=== PATIENT | female | born 1945 | race Caucasian/White ===

== ENCOUNTER → 2018-02-22 15:05 | Outpatient (CLI) | payer OTHER, SELFPAY ==
[2018-02-22 18:20] LABS: Anion Gap 8 (5-15); BUN 22 mg/dL (7-18); BUN/Creat Ratio 24.7 RATIO (10-20); Calcium,Total 8.6 mg/dL (8.5-10.1); Chloride 106 mmol/L (98-107); Cholesterol 155 mg/dL (200); Creatinine, Serum 0.89 mg/dL (0.55-1.02); EST Glomerular Filtration Rate 67 mL/min (>60); Est Glom Filt Rate - Afr Amer 81 mL/min (>60); Glucose 92 mg/dL (74-106); High Density Lipoprotein 40 mg/dL; Potassium 3.8 mmol/L (3.5-5.1); Sodium Level 143 mmol/L (136-145); Triglycerides 214 mg/dL; Very Low Density Lipoprotein 43 mg/dL (5-40)
== END ==
PROVIDERS: Visit Provider Family Medicine
DX: I10 Essential (primary) hypertension (principal)
CPT/HCPCS: 36415; 80048; 80061

== ENCOUNTER → 2018-05-11 09:57 | Outpatient (CLI) | payer MEDICARE, SELFPAY ==
[2018-05-11 12:34] LABS: Anion Gap 11 (5-15); BUN 16 mg/dL (7-18); BUN/Creat Ratio 17.9 RATIO (10-20); Calcium,Total 8.7 mg/dL (8.5-10.1); Chloride 101 mmol/L (98-107); Creatinine, Serum 0.89 mg/dL (0.55-1.02); EST Glomerular Filtration Rate 66 mL/min (>60); Est Glom Filt Rate - Afr Amer 80 mL/min (>60); Glucose 94 mg/dL (74-106); Magnesium 2.3 mg/dL (1.6-2.6); Potassium 4.2 mmol/L (3.5-5.1); Sodium Level 141 mmol/L (136-145)
== END ==
PROVIDERS: Family Provider Family Medicine; PCP Family Medicine; Visit Provider Family Medicine
DX: A04.72 Enterocolitis due to Clostridium difficile, not specified as recurrent (principal)
CPT/HCPCS: 36415; 80048; 83735

== ENCOUNTER → 2018-06-07 08:13 | Outpatient (CLI) | payer MEDICARE, SELFPAY ==
--- NOTE | 2018-06-07 08:17 | US_ITS ---
STUDY: ABDOMINAL ULTRASOUND REASON FOR EXAM: Female, 73 years old. Ascites evaluation. Recent hospitalization for Escherichia coli, abdominal appearing during hospitalization. TECHNIQUE: Transabdominal ultrasound was performed with real-time and static mcwilliams scale imaging. TECHNICAL QUALITY: Adequate. COMPARISON: None. FINDINGS: Liver: The liver measures 16.3 cm. There is normal echogenicity of the liver. The bile ducts are within normal limits. There is hepatic color flow. The direction of portal flow is hepatopetal. There is no demonstrated mass lesion. Portal vein measurement: Gallbladder: Normal distended gallbladder. The gallbladder wall measures 2.2 mm. There is a negative sonographic Rojas's sign. There is no pericholecystic fluid. There are gallbladder polyp of 2.5 mm. Common Bile Duct (C.B.D.): The common bile duct measures 3.5 mm. Pancreas: Normal size of the head, body and obscured tail of the pancreas. There is normal echogenicity of the pancreas. There is no demonstrated pancreatic mass or cyst. Spleen: There is splenomegaly. The spleen measures 12.7 x 4.5 x 4.4 cm. There are splenic granulomata. Right Kidney: Normal size of the right kidney. The right kidney measures 10 x 5 x 5 cm. Normal renal cortex. The right cortex measures 1. cm. There is no demonstrated renal mass or cyst. There is no right hydronephrosis. Left Kidney: Normal size of the left kidney. The left kidney measures 9.5 x 5.5 x 5 cm. Normal renal cortex. The left cortex measures 2.3 cm. There is echogenic mass without shadowing measuring 0.9 x 1 x 0.9 cm. There is no left hydronephrosis. Aorta: Normal diameter of the abdominal aorta and proximal common iliac arteries. I.V.C.: The IVC is patent. There is no ascites. US/Abdomen Complete IMPRESSION: Small gallbladder polyp in noninflamed gallbladder. No evidence of ascites or cirrhosis. Mild splenomegaly and splenic granulomata. Left renal angiomyolipoma. Electronically Signed: Paulette Fatima MD at 6:54 EST , Service support ,
== END ==
PROVIDERS: Family Provider Family Medicine; PCP Family Medicine
DX: K82.4 Cholesterolosis of gallbladder (principal); D17.71 Benign lipomatous neoplasm of kidney; D73.89 Other diseases of spleen; R18.8 Other ascites
CPT/HCPCS: 76700

== ENCOUNTER → 2018-12-14 08:27 | Outpatient (CLI) | payer MEDICARE, SELFPAY ==
[2018-12-14 10:19] LABS: Absolute Lymphocyte Count 1.31 X10^3/uL (0.83-4.51); Absolute Neutrophil Count 4.1 X10^3/uL (2.0-7.7); Basophil# 0.01 X10^3/uL; Basophil% 0.2 % (0-1); Eosinophil# 0.08 X10^3/uL; Eosinophils% 1.3 % (0-5); Hematocrit 36.5 % (37-47); Hemoglobin 11.9 g/dL (12.0-15.0); Lymphocyte # 1.31 X10^3/ul (4.0); Lymphocyte % 21.9 % (19-41); Mean Corp Hgb Conc 32.6 g/dL (32-36); Mean Corpuscular Hgb 31.8 pg (27.0-32.0); Mean Corpuscular Volume 97.6 fL (81-99); Mean Platelet Vol. 11.7 fl (6.2-12.0); Monocyte% 6.7 % (0-10); NRBC Flagged by Analyzer 0 % (0-5); Neutrophil # 4.14 X10^3/uL (2.7-7.7); Neutrophil % 69.4 % (47-70); Platelet Count 159 K/mm3 (150-450); RBC Distribution Width CV 12.7 % (11.6-14.6); RBC Distribution Width SD 45.3 fl (35.1-43.9); Red Blood Count 3.74 M/mm3 (4.2-5.4)
[2018-12-14 10:33] LABS: Vitamin D,25 Hydroxy 35.6 ng/mL (29.95-100.01)
[2018-12-14 10:47] LABS: ALB/GLOB Ratio 0.9 RATIO (0.9-2.4); AST(SGOT) 21 U/L (15-37); Alanine Aminotransfer ALT/SGPT 21 U/L (13-56); Albumin, Serum 3.2 g/dL (3.2-5.0); Alkaline Phosphatase 69 U/L (45-117); Anion Gap 6 (5-15); BUN 23 mg/dL (7-18); BUN/Creat Ratio 23.9 RATIO (10-20); Calcium,Total 8.4 mg/dL (8.5-10.1); Chloride 105 mmol/L (98-107); Cholesterol 162 mg/dL (200); Creatinine, Serum 0.96 mg/dL (0.55-1.02); EST Glomerular Filtration Rate 61 mL/min (>60); Est Glom Filt Rate - Afr Amer 73 mL/min (>60); Globulin 3.6 g/dL (2.2-4.2); Glucose 94 mg/dL (74-106); High Density Lipoprotein 50 mg/dL; Potassium 3.9 mmol/L (3.5-5.1); Protein, Total 6.8 g/dL (6.4-8.2); Sodium Level 140 mmol/L (136-145); Triglycerides 144 mg/dL; Uric Acid 6.2 mg/dL (2.6-6.0); Very Low Density Lipoprotein 29 mg/dL (5-40)
== END ==
PROVIDERS: Family Provider Family Medicine; PCP Family Medicine; Referring Provider Family Medicine; Visit Provider Family Medicine
DX: M10.9 Gout, unspecified (principal); C50.919 Malignant neoplasm of unspecified site of unspecified female breast; E55.9 Vitamin D deficiency, unspecified; I10 Essential (primary) hypertension
CPT/HCPCS: 36415; 80053; 80061; 82306; 84550; 85025

== ENCOUNTER → 2019-02-09 13:29 | Outpatient (CLI) | payer MEDICARE, SELFPAY ==
--- NOTE | 2019-02-09 13:33 | RAD_ITS ---
STUDY: X-RAY - PELVIS AND RIGHT HIP REASON FOR EXAM: Female, 73 years old. Right hip pain for several months. TECHNIQUE: 3 views of the pelvis and hip. COMPARISON: None. FINDINGS: There is a non-specific bowel gas pattern. Multiple calcified pelvic phleboliths. Enthesophytes of the iliac crests. Mild degenerative changes of the sacroiliac joints. Normal bilateral superior and inferior pubic rami. Normal pubic symphysis. Normal bilateral ischial tuberosities. Normal visualized femoral head. Normal acetabulum. There is mild articular joint space narrowing of the hip. RAD/HIP, UNI W/ Pelvis 2-3 Views IMPRESSION: Negative for fracture, dislocation, osteolytic or blastic bone lesion of the pelvis or hips. Mild degenerative narrowing of the right hip similar to the left hip. Mild degenerative changes of the sacroiliac joints. Enthesophytes of the iliac crests. Electronically Signed: Eulalia Samaniego MD at 22:18 EDT , Service support ,
== END ==
PROVIDERS: Family Provider Family Medicine; PCP Family Medicine; Referring Provider Family Medicine; Visit Provider Family Medicine
DX: M25.559 Pain in unspecified hip (principal)
CPT/HCPCS: 73502

== ENCOUNTER 2019-03-17 09:00 | Outpatient (RCR) | payer MEDICARE, SELFPAY ==
--- NOTE | 2019-03-10 11:48 | HP.PTEVAL_ITS ---
Patient's Visit Information JASEN ANDERSEN is a 73 year old F referred to Physical Therapy by Robinson Starkey PA-C with a diagnosis of Right Hip Bursitis. Date of Evaluation: 03/10/19 Physical Therapist: Fina Polanco DPT - Visit Plan Frequency: 2x /Week Duration: 3 Weeks Plan: Focus on LE and core strength/stabilization- progress to HEP for H&W. HEP IE: postural education, iso abs, bridge, clams - Subjective Findings: Right hip pain started 2-3 months ago- [place] like a really bad hamstring pull and N/T. Had x-rays and was diagnosed with bursitis. She had an injection in the hip (02/02/19). Her hip is 80% better since the injection. The pain is right where the leg bends. Normal ex reg- cardio, strength and ted 5x a week at [facility]. Agg: She reports still having N/T when she sits to long or when she gets out of bed in the AM, walking to long. Worst: 2/10 Eases: ice, injection. Best: 0/10. Has had various injections in her back- last one was 3-4 years ago. Sleep: when she turns on her right side. Once she is moving it just takes a few minutes- her couch is the worst spot to sit in. PMHx: HTN, breast cancer, bilateral TKR 2009, Right knee bothers her a little bit, 7.5 years ago- left shoulder repair, Ecoli Meds: Gabapentin, hyprocholor, Promexel, Meloxicam, Tomoxipham. - Objective Posture: FH, RS- can correct when given verbal and tacile cues but does not m aintain. Gait: no significant deviations noted. HR/TR: able. SLS: Left 5 seconds Right: 3 seconds. ROM: WFL in all planes lumbar and LE. Sensation: WNL. Reflex: 2+ patellar. Strength: Ankle DF/PF: 5/5 Knee:5/5, Hip: 4/5 throughout Core: fair minus. Flex: HS: moderate, Gastroc: moderate, Piriformis: moderate. Special Test: slump: positive. Dural Signs: positive on the right, Alexsander: negative. - Goals Goal 1:: Patient will be I with HEP and progression Goal Time Frame: 4-6 Weeks Goal 2:: Patinet will maintain proper posture t/o tx session to demo increased core s/s Goal Time Frame: 4-6 Weeks Goal 3:: Patient will report 0/10 hip pain for 1 week Goal Time Frame: 4-6 Weeks Goal 4:: Patient will demo 5/5 strength in LE Goal Time Frame: 4-6 Weeks - Rehabilitation Potential Physical Therapy Diagnosis: Patient present with hypomobility- she has decreased strength and muscular endurance leading to increased pain with ADL's. Rehabilitation Potential: Fair - Anticipated Interventions Patient/Client Instruction: Educate patient on: Benefits of Fitness Program Therapeutic Exercise to Include: Strength training, Balance training, Body mechanics, Postural training, Flexibilty training, Dynamic Lumbar Stabilization, Scapular Strength/Stabilization For the Purpose of:: To improve muscle performance and motor function TENS: Yes Cryotherapy (ice pack, ice massage): Yes Thermo therapy (hot pack): Yes Ultrasound (thermal/non thermal): Yes Thank you for the opportunity to evaluate your patient. For Medicare and Medicare HMO plans, please review the plan of care and approve it. It will need to be FAXED BACK to us at [phone] for Medicare purposes. For Medicare only, by signing this I certify the plan of care. Please let me know if there are questions or concerns regarding this plan of care. Physician Signature: Date:
--- NOTE | 2019-04-18 11:09 | HP.PT.NRP ---
HP - Discharge Summary (1) - Patient Information JASEN ANDERSEN was seen in my office for initial evaluation on 03/10/19. The following Plan of Care was established for this patient: Initial Frequency: 2x /Week Initial Duration: 3 Weeks - Anticipated Interventions Patient/Client Instruction: Educate patient on: Benefits of Fitness Program Therapeutic Exercise to Include: Strength training, Balance training, Body mechanics, Postural training, Flexibilty training, Dynamic Lumbar Stabilization, Scapular Strength/Stabilization For the Purpose of:: To improve muscle performance and motor function TENS: Yes Cryotherapy (ice pack, ice massage): Yes Thermo therapy (hot pack): Yes Ultrasound (thermal/non thermal): Yes This patient was last seen in our office . Pertinent comments regarding their Physical therapy will appear below: Patient has not attended therapy is over 4 weeks- appropriate for d/c and return to MD for further evaluation as needed. At this point I will be discontinuing this patient from physical therapy. I would be happy to see this patient again in the future if found appropriate by the physician. Thank you! Fina Polanco DPT
== END 2019-03-17 19:00 | disposition home or self-care (01) ==
LOC: PT 09:00
PROVIDERS: Family Provider Family Medicine; PCP Family Medicine; Referring Provider Physician Assistant; Visit Provider Physician Assistant
DX: M16.11 Unilateral primary osteoarthritis, right hip (principal); M70.61 Trochanteric bursitis, right hip
CPT/HCPCS: 97110; 97161

== ENCOUNTER → 2019-12-26 09:42 | Outpatient (CLI) | payer MEDICARE, SELFPAY ==
[2019-12-26 12:17] LABS: Absolute Lymphocyte Count 1.28 X10^3/uL (0.83-4.51); Absolute Neutrophil Count 4.7 X10^3/uL (2.0-7.7); Basophil# 0.02 X10^3/uL; Basophil% 0.3 % (0-1); Eosinophil# 0.11 X10^3/uL; Eosinophils% 1.7 % (0-5); Hematocrit 35.3 % (37-47); Hemoglobin 11.2 g/dL (12.0-15.0); Lymphocyte # 1.28 X10^3/ul (4.0); Lymphocyte % 19.5 % (19-41); Mean Corp Hgb Conc 31.7 g/dL (32-36); Mean Corpuscular Hgb 31.5 pg (27.0-32.0); Mean Corpuscular Volume 99.2 fL (81-99); Monocyte# 0.49 X10^3/uL; Monocyte% 7.5 % (0-10); NRBC Flagged by Analyzer 0 % (0-5); Neutrophil # 4.65 X10^3/uL (2.7-7.7); Neutrophil % 70.7 % (47-70); Platelet Count 175 K/mm3 (150-450); RBC Distribution Width CV 12.4 % (11.6-14.6); RBC Distribution Width SD 45.1 fl (35.1-43.9); Red Blood Count 3.56 M/mm3 (4.2-5.4); White Blood Count 6.6 K/mm3 (4.4-11.0)
[2019-12-26 12:45] LABS: Vitamin B12 659 pg/mL (211-911)
[2019-12-26 12:53] LABS: Hemoglobin A1c 5.4 % (3.8-5.6)
[2019-12-26 13:22] LABS: ALB/GLOB Ratio 0.9 RATIO (0.9-2.4); AST(SGOT) 19 U/L (15-37); Alanine Aminotransfer ALT/SGPT 19 U/L (13-56); Albumin, Serum 3.2 g/dL (3.2-5.0); Alkaline Phosphatase 71 U/L (45-117); Anion Gap 6 (5-15); BUN 22 mg/dL (7-18); BUN/Creat Ratio 24.1 RATIO (10-20); Calcium,Total 8.8 mg/dL (8.5-10.1); Chloride 106 mmol/L (98-107); Creatinine, Serum 0.91 mg/dL (0.55-1.02); EST Glomerular Filtration Rate 64 mL/min (>60); Est Glom Filt Rate - Afr Amer 78 mL/min (>60); Free T3 3.1 pg/mL (2.18-3.98); Globulin 3.5 g/dL (2.2-4.2); Glucose 93 mg/dL (74-106); Potassium 4.1 mmol/L (3.5-5.1); Protein, Total 6.7 g/dL (6.4-8.2); Sodium Level 141 mmol/L (136-145); T4 Free Direct 0.91 ng/dL (0.76-1.46); Thyroid Stim Hormone (TSH) 3.13 uIU/mL (0.358-3.74); Uric Acid 6.3 mg/dL (2.6-6.0)
[2019-12-27 14:08] LABS: Thyroid Peroxidase AB < 9 IU/mL (0-34)
[2019-12-27 16:59] LABS: Thyroglobulin Antibody < 1.0 IU/mL (0.0-0.9)
== END ==
PROVIDERS: PCP Family Medicine; Visit Provider Family Medicine
DX: E03.9 Hypothyroidism, unspecified (principal); M10.9 Gout, unspecified; I10 Essential (primary) hypertension; R53.83 Other fatigue; Z79.899 Other long term (current) drug therapy
CPT/HCPCS: 36415; 80053; 82607; 83036; 84439; 84443; 84481; 84550; 85025; 86376; 86800

== ENCOUNTER → 2020-02-02 15:20 | Outpatient (CLI) | payer MEDICARE, SELFPAY ==
--- NOTE | 2020-02-02 10:50 | EGD_PTH ---
PATIENT: JASEN ANDERSEN LOC: [facility] U#:[id number] AGE/SX: 79/F ROOM: RE02/02/[address]: Dr. Leon Shipman MD : 1945 BED: DIS: SPEC #: [id number] RECD: 02/02/20 15:10 STATUS: JUDITH SCARLET #: [id number] LUC: 02/02/20 10:[address]: Leon Shipman DEPT: SURGICAL PATHOLOGY RECD BY: Kevin Marcelo ENTERED: 02/05/20 07:10 SP TYPE: EGD BIOPSY OT DR: Dr. Sudha Adler MD [facility] Tissues: Duodenum, NOS Procedures: Surgery Specimen Level IV HEADER OPERATION: EGD with biopsies PRE-OP DIAGNOSIS: Iron deficiency anemia; rule out celiac TISSUE SUBMITTED: Duodenal biopsies MICROSCOPIC DIAGNOSIS Duodenum, biopsy: No pathologic change. See comment. AM:jaguar 02/06/20 COMMENT There is no evidence of celiac sprue. Clinical correlation is suggested. MICROSCOPIC DESCRIPTION Slides are reviewed. GROSS DESCRIPTION Received in fixative is one container labeled with the patient's name and designated duodenal biopsy. The specimen consists of two irregular fragments of light swenson soft tissue that in aggregate measure 0.6 x 0.6 x 0.1 cm. The specimen is totally submitted in one cassette. / AM:jaguar 02/05/20 TC:5 CPT: 78850
== END ==
PROVIDERS: PCP Family Medicine; Referring Provider Internal Medicine Gastroenterology; Visit Provider Internal Medicine Gastroenterology
DX: D50.9 Iron deficiency anemia, unspecified (principal)
CPT/HCPCS: 88305

== ENCOUNTER → 2020-02-09 10:25 | Outpatient (CLI) | payer MEDICARE, SELFPAY ==
[2020-02-09 12:47] LABS: Absolute Lymphocyte Count 1.49 X10^3/uL (0.83-4.51); Absolute Neutrophil Count 5.4 X10^3/uL (2.0-7.7); Basophil# 0.02 X10^3/uL; Basophil% 0.3 % (0-1); Eosinophil# 0.07 X10^3/uL; Eosinophils% 0.9 % (0-5); Hematocrit 38.9 % (37-47); Hemoglobin 12.4 g/dL (12.0-15.0); Lymphocyte # 1.49 X10^3/ul (4.0); Lymphocyte % 20.1 % (19-41); Mean Corp Hgb Conc 31.9 g/dL (32-36); Mean Corpuscular Volume 100.5 fL (81-99); Mean Platelet Vol. 11.7 fl (6.2-12.0); Monocyte# 0.48 X10^3/uL; Monocyte% 6.5 % (0-10); NRBC Flagged by Analyzer 0 % (0-5); Neutrophil # 5.35 X10^3/uL (2.7-7.7); Neutrophil % 71.9 % (47-70); Platelet Count 180 K/mm3 (150-450); RBC Distribution Width CV 12.9 % (11.6-14.6); RBC Distribution Width SD 47.1 fl (35.1-43.9); Red Blood Count 3.87 M/mm3 (4.2-5.4); White Blood Count 7.4 K/mm3 (4.4-11.0)
[2020-02-09 13:00] LABS: Iron 87 ug/dL (50-170)
== END ==
PROVIDERS: PCP Family Medicine; Referring Provider Family Medicine; Visit Provider Internal Medicine Gastroenterology
DX: E61.1 Iron deficiency (principal)
CPT/HCPCS: 36415; 83540; 85025

== ENCOUNTER → 2020-06-25 14:28 | Outpatient (CLI) | payer MEDICARE, SELFPAY ==
[2020-06-25 17:27] LABS: Absolute Lymphocyte Count 1.68 X10^3/uL (0.83-4.51); Absolute Neutrophil Count 6.7 X10^3/uL (2.0-7.7); Basophil# 0.03 X10^3/uL; Basophil% 0.3 % (0-1); Eosinophil# 0.03 X10^3/uL; Eosinophils% 0.3 % (0-5); Hemoglobin 13.2 g/dL (12.0-15.0); Lymphocyte # 1.68 X10^3/ul (4.0); Lymphocyte % 18.8 % (19-41); Mean Corpuscular Hgb 31.9 pg (27.0-32.0); Mean Corpuscular Volume 96.6 fL (81-99); Monocyte% 5.6 % (0-10); NRBC Flagged by Analyzer 0 % (0-5); Neutrophil # 6.66 X10^3/uL (2.7-7.7); Neutrophil % 74.6 % (47-70); Platelet Count 196 K/mm3 (150-450); RBC Distribution Width CV 12.8 % (11.6-14.6); RBC Distribution Width SD 45.2 fl (35.1-43.9); Red Blood Count 4.14 M/mm3 (4.2-5.4); White Blood Count 8.9 K/mm3 (4.4-11.0)
[2020-06-25 17:54] LABS: Vitamin B12 1408 pg/mL (211-911)
[2020-06-25 18:11] LABS: ALB/GLOB Ratio 0.9 RATIO (0.9-2.4); AST(SGOT) 20 U/L (15-37); Alanine Aminotransfer ALT/SGPT 24 U/L (13-56); Albumin, Serum 3.6 g/dL (3.2-5.0); Alkaline Phosphatase 76 U/L (45-117); Anion Gap 9 (5-15); BUN 21 mg/dL (7-18); BUN/Creat Ratio 22.2 RATIO (10-20); Calcium,Total 9.1 mg/dL (8.5-10.1); Chloride 103 mmol/L (98-107); Creatinine, Serum 0.95 mg/dL (0.55-1.02); EST Glomerular Filtration Rate 62 mL/min (>60); Est Glom Filt Rate - Afr Amer 75 mL/min (>60); Ferritin 114 ng/mL (8-252); Globulin 3.9 g/dL (2.2-4.2); Glucose 93 mg/dL (74-106); Iron 45 ug/dL (50-170); Iron Binding Capacity,Total 337 ug/dL (250-450); Potassium 3.5 mmol/L (3.5-5.1); Protein, Total 7.5 g/dL (6.4-8.2); Sodium Level 140 mmol/L (136-145); Uric Acid 5.5 mg/dL (2.6-6.0)
== END ==
PROVIDERS: PCP Family Medicine; Visit Provider Family Medicine
DX: R42 Dizziness and giddiness (principal); M10.9 Gout, unspecified; I10 Essential (primary) hypertension; D64.9 Anemia, unspecified
CPT/HCPCS: 36415; 80053; 82607; 82728; 83540; 83550; 84550; 85025

== ENCOUNTER → 2020-06-26 11:06 | Outpatient (CLI) | payer MEDICARE, SELFPAY | PROVIDERS: PCP Family Medicine; Visit Provider Family Medicine | DX: Z20.828 Contact with and (suspected) exposure to other viral communicable diseases (principal); R42 Dizziness and giddiness | CPT/HCPCS: 87635; U0005; U0003 ==

== ENCOUNTER → 2020-07-02 13:38 | Outpatient (CLI) | payer MEDICARE, SELFPAY ==
--- NOTE | 2020-07-02 13:42 | CT_ITS ---
STUDY: CTA OF THE BRAIN REASON FOR EXAM: Female, 75 years old. VERTIGO/CONCERN FOR STROKE -- HAD CAROTID DOPPLER AFTER CTA RADIATION DOSAGE (If Supplied By Facility): CTDIvol = ( 17.32 ) mGy, DLP = ( 363.92 ) mGycm TECHNIQUE: CT angiography was performed with a multi-detector CT scanner. Data acquisition was obtained from the skull base through the vertex following intravenous administration of IV 100mL Isovue-370. MIP images were reconstructed from the axial data set. Post-processing of the angiographic images was performed, with multiplanar reformation and 3D reconstruction. Individualized dose optimization techniques were used for this CT. COMPARISON: None. FINDINGS: Normal bilateral petrous carotid arteries. There is calcified plaque formation of the right cavernous carotid artery, without a cross-sectional luminal stenosis. There is calcified plaque formation of the left cavernous carotid artery, without a cross-sectional luminal stenosis. Normal right A1 segments of the anterior cerebral artery. Normal left A1 segments of the anterior cerebral artery. Normal intact anterior communicating artery (ACOM). Normal bilateral A2 segments of the anterior cerebral arteries. Normal right M1 and M2 segments of the middle cerebral arteries, with a normal M1 bifurcation. Normal left M1 and M2 segments of the middle cerebral arteries, with a normal M1 bifurcation. Normal right posterior communicating artery (PCOM). Normal left posterior communicating artery (PCOM). Normal bilateral vertebral arteries. Normal basilar artery with a normal basilar bifurcation. The visualized bilateral superior cerebellar (SCA) arteries are normal. Normal bilateral P1, P2 and visualized P3 segments of the posterior cerebral arteries. There is no demonstrated aneurysm of the [place]. There is no demonstrated abnormality of the visualized brain. CT/CTA Head W/WO Contrast IMPRESSION: Normal [place] without a demonstrated aneurysm or hemodynamically significant stenosis. Electronically Signed: Monico Aquino MD at 14:40 EST , Service support ,
--- NOTE | 2020-07-02 14:03 | CDU_ITS ---
Reason For Study: vertigo, concern for stroke Rt. Velocities/BP Lt. Velocities/BP Prox CCA 91.7/26.5 cm/sec. Prox CCA 108.6/25.2 cm/sec. Mid CCA 85.2/23.9 cm/sec. Mid CCA 81.2/21.3 cm/sec. Dist CCA 82.6/21.3 cm/sec. Dist CCA 76.0/21.3 cm/sec. Prox ICA 57.8/20.0 cm/sec. Prox ICA 77.3/20.0 cm/sec. Mid ICA 99.5/22.6 cm/sec. Mid ICA 83.9/27.8 cm/sec. Dist ICA 100.8/35.6 cm/sec. Dist ICA 111.2/42.1 cm/sec. Rt. ICA/CCA = 1.2. Lt. ICA/CCA = 1.4. Prox ECA 111.2/10.8 cm/sec. Prox ECA 94.3/10.8 cm/sec. Rt. Vert. 42.1/9.5 cm/sec. Lt. Vert. 48.6/14.7 cm/sec. Right Extracranial There is intimal thickening but no significant atherosclerotic plaque noted in the right common carotid artery. There is intimal thickening but no significant atherosclerotic plaque noted in the right internal carotid artery. There is heterogeneous, irregular atherosclerotic plaque noted in the right external carotid artery. Antegrade flow is noted in the right vertebral artery. Left Extracranial There is homogeneous, smooth atherosclerotic plaque noted in the left common carotid artery. There is intimal thickening but no significant atherosclerotic plaque noted in the left internal carotid artery. There is intimal thickening but no significant atherosclerotic plaque noted in the left external carotid artery. Antegrade flow is noted in the left vertebral artery. Procedure Carotid Duplex 90950. This is a Carotid Duplex examination using B-mode, color flow and specral Doppler. The exam was diagnostic. Exam performed in department. Interpretation Summary No significant atherosclerotic plaque or stenosis noted in the internal carotid arteries bilaterally. Flow within the vertebral arteries is antegrade bilaterally. Ordering Physician: Sudha Adler Performed By: Emigdio Delgado RVT
== END ==
PROVIDERS: PCP Family Medicine; Referring Provider Family Medicine; Visit Provider Family Medicine
DX: R42 Dizziness and giddiness (principal)
CPT/HCPCS: 70496; 93880; Q9967

== ENCOUNTER 2020-08-19 00:50 | Emergency (ER) | payer MEDICARE, SELFPAY ==
[2020-08-19 00:51] VITALS: BP 192/96; PULSE 109; RESP 19; TEMP 36.6; O2SAT 95; BMI 35.4
[2020-08-19 00:58] VITALS: BMI 35.4
--- NOTE | 2020-08-19 01:31 | CT_ITS ---
STUDY: CT BRAIN WITHOUT CONTRAST REASON FOR EXAM: Female, 75 years old. Headache RADIATION DOSAGE (If Supplied By Facility): CTDIvol = ( 44.99 ) mGy, DLP = ( 745.49 ) mGycm TECHNIQUE: Transaxial CT imaging of the brain was performed without administration of intravenous contrast material. Individualized dose optimization techniques were used for this CT. COMPARISON: 07/02/2020 FINDINGS: Normal soft tissue structures. Normal calvarium. Normal size ventricles and extra-axial spaces for the patient''s age. Normal white matter tracts of the cerebral hemispheres. Normal basal ganglia and thalami. Normal brainstem. Normal cerebellum. There is no intracranial hemorrhage. There are no findings of an acute ischemic infarction. Normal visualized paranasal sinuses. CT/Brain/Head without Contrast IMPRESSION: Normal unenhanced CT scan of the brain. Electronically Signed: Sunny Syed DO at 2:22 EDT Tel , Service support ,
--- NOTE | 2020-08-19 01:31 | RAD_ITS ---
STUDY: X-RAY CHEST REASON FOR EXAM: Female, 75 years old. Paresthesias TECHNIQUE: Single AP portable view of the chest. COMPARISON: 05/28/2014 FINDINGS: The lungs are clear and expanded. There is no demonstrated pleural abnormality. Normal size heart. Normal mediastinum and esha. Normal visualized pulmonary arteries. Normal visualized aortic arch and descending thoracic aorta. Normal visualized thoracic spine. Normal visualized ribs, clavicles, and shoulders. There is no demonstrated abnormality of the visualized soft tissue structures of the upper abdomen. RAD/Chest 1 View (Portable) IMPRESSION: Normal x-ray examination of the chest. Electronically Signed: Sunny Syed DO at 2:24 EDT Tel , Service support ,
--- NOTE | 2020-08-19 01:31 | EKG12_ITS ---
Test Reason : NEURO SYMPTOMS Blood Pressure : / mmHG Vent. Rate : 088 BPM Atrial Rate : 088 BPM P-R Int : 260 ms QRS Dur : 088 ms QT Int : 390 ms P-R-T Axes : 045 -28 037 degrees QTc Int : 471 ms Sinus rhythm with 1st degree A-V block Nonspecific ST abnormality Abnormal ECG Confirmed by RAFFAELE DONAHUE, BYRON ([id number]), map editor KEERTHI GARCIA ([id number]) on 08/20/2020 8:43:04 AM Referred By: NADIA Confirmed By:MACKENZIE CASTORENA MD
[2020-08-19 01:41] LABS: Absolute Lymphocyte Count 2.19 X10^3/uL (0.83-4.51); Absolute Neutrophil Count 4.8 X10^3/uL (2.0-7.7); Basophil# 0.02 X10^3/uL; Basophil% 0.3 % (0-1); Eosinophil# 0.08 X10^3/uL; Eosinophils% 1.1 % (0-5); Hematocrit 39.7 % (37-47); Hemoglobin 13.3 g/dL (12.0-15.0); Lymphocyte # 2.19 X10^3/ul (0.83-4.51); Lymphocyte % 28.9 % (19-41); Mean Corp Hgb Conc 33.5 g/dL (32-36); Mean Corpuscular Hgb 33.1 pg (27.0-32.0); Mean Corpuscular Volume 98.8 fL (81-99); Mean Platelet Vol. 11.8 fl (6.2-12.0); Monocyte# 0.51 X10^3/uL; Monocyte% 6.7 % (0-10); NRBC Flagged by Analyzer 0 % (0-5); Neutrophil # 4.76 X10^3/uL (2.7-7.7); Neutrophil % 62.7 % (47-70); Platelet Count 176 K/mm3 (150-450); RBC Distribution Width CV 12.8 % (11.6-14.6); Red Blood Count 4.02 M/mm3 (4.2-5.4); White Blood Count 7.6 K/mm3 (4.4-11.0)
[2020-08-19 01:45] LABS: Partial Thromboplast Time 27.2 Seconds (24.1-36.2); Prothrombin Time (Protime)PT. 12.6 SECONDS (11.7-14.9)
[2020-08-19 01:46] LABS: Bedside Glucose 121 mg/dL (70-110)
[2020-08-19 01:56] VITALS: BP 166/90; PULSE 91; RESP 16; O2SAT 100
[2020-08-19 01:56] LABS: ALB/GLOB Ratio 0.9 RATIO (0.9-2.4); AST(SGOT) 20 U/L (15-37); Alanine Aminotransfer ALT/SGPT 24 U/L (13-56); Albumin, Serum 3.6 g/dL (3.2-5.0); Alkaline Phosphatase 65 U/L (45-117); Anion Gap 5 (5-15); BUN 23 mg/dL (7-18); BUN/Creat Ratio 22.1 RATIO (10-20); Calcium,Total 8.9 mg/dL (8.5-10.1); Chloride 102 mmol/L (98-107); Creatinine, Serum 1.04 mg/dL (0.55-1.02); EST Glomerular Filtration Rate 55 mL/min (>60); Est Glom Filt Rate - Afr Amer 67 mL/min (>60); Estimated Creatinine Clearance 39.85 ml/min; Glucose 133 mg/dL (74-106); Potassium 3.1 mmol/L (3.5-5.1); Protein, Total 7.6 g/dL (6.4-8.2); Sodium Level 137 mmol/L (136-145)
[2020-08-19 02:00] VITALS: BP 178/90; PULSE 98; RESP 19; O2SAT 99
--- NOTE | 2020-08-19 02:08 | ED.DCSUM_ITS ---
- ER Visit Summary Date of Service: 08/19/20 Chief Complaint: Left arm tingling, blurred vision, and headache History of Present Illness: The patient is a 75 F who presents with left arm tingling that began yesterday. Patient states that she has been having some intermittent tingling over her left arm. Patient also admits to some intermittent blurred vision. Patient denies any loss of vision. Patient also admits to a headache. Patient denies any weakness. Patient states she noticed her blood pressure was also elevated at home. Patient denies any chest pain or shortness of breath. Patient denies any nausea or vomiting. Patient denies any diaphoresis. Physical Examination: Vital signs are stable except for an elevated blood pressure of 192/96 and mild tachycardia of 109. Patient is afebrile. Patient is in no acute distress. Cranial nerves II through XII are intact. Strength is 5/5 bilaterally in the upper and lower extremities. There are no sensory deficits noted. Fcqp-vs-xgct and ytaoct-we-ahec is intact. There are no visual field deficits noted. Pupils are equal, round, and reactive to light bilaterally. Extraocular muscles are intact. Oral mucosa is pink and moist. Neck is supple. Trachea is midline. There is no JVD. Heart was regular rate and rhythm. Lungs are clear and equal bilaterally. There is good respiratory effort noted. Abdomen is soft. Bowel sounds are normal. There is no tenderness. Extremities are intact. There is no calf tenderness or edema. Test Results: EKG was obtained. On my interpretation, it showed a normal sinus rhythm with a rate of 88. NC interval was slightly prolonged at 260 ms. QRS interval, and QTc intervals were all normal. There is left axis deviation at - 28. There are no acute ST or T wave changes. CBC was within normal limits. Comprehensive metabolic profile showed a mild hypokalemia of 3.1. BUN was 23 and creatinine was 1.04. These were consistent with prior results. PT with INR and PTT were normal. Urinalysis does not show any evidence of urinary tract inf ection. Troponin was normal. Portable 1 view chest x-ray was obtained. On my interpretation, lung sorenson are clear. There is normal cardiac silhouette. Bony thorax is normal. There is no acute process noted. Radiologist also interpreted the x-ray and agrees. CT scan of the brain was obtained. There is no acute intracranial abnormality. This was interpreted by the radiologist and reviewed by myself. Emergency Department Course and Treatment: Patient was given a dose of oral potassium here. Patient's blood pressure improved to 166/90 without any medications. Her blood pressure then increased to 170/76. Patient was advised to increase her hydrochlorothiazide to 25 mg daily. Patient was advised to continue to monitor her blood pressure. Patient was instructed to follow-up with her primary care physician in 2 to 3 days for further evaluation. Patient understood and was agreeable with the plan. All questions were answered. Disposition: Discharge home Impression: 1. Hypokalemia 2. Hypertension 3. Paresthesias This note was generated with [employer] dictation software. It may contain incorrect words, spelling, and punctuation that were not noted in review of the chart prior to signing ED Disposition - Plan for ED Patient: Disposition: Home or Assisted Living Diagnosis: Hypokalemia, Hypertension, Paresthesias Instructions: ED Hypertension, Established, ED Hypokalemia, ED Paraesthesias Referrals: Sudha Adler MD [Primary Care Provider] - 3-5 Days Additional Instructions: Your blood pressure was elevated here in the emergency department. Increase your hydrochlorothiazide to 25 mg daily. Continue to monitor your blood pressures daily. Follow-up with your primary care physician in 3 to 5 days for further management of your blood pressure.
[2020-08-19 02:12] LABS: Bacteria 0 SEEN /hpf (None Seen); Color, Urine Yellow (Yellow); Glucose, Dipstick Normal (Normal); Ketone-Dipstick Negative (Negative); Leukocyte Esterase-Dipstick Negative /ul (Negative); Mucous, Urine 0 SEEN /hpf (<or=2+); Nitrite-Dipstick Negative (Negative); Occult Blood-Urine Negative /ul (Negative); Protein-Dipstick Negative (Negative); Squamous Epithelial Cells - UA 0 SEEN /hpf (5-10); Urine Bilirubin Dipstick Negative (Negative); Urine Clarity Clear (Clear); Urine Urobilinogen Normal (Normal); Urine pH 6.5 (5.0 - 8.0); White Blood Cells 0 SEEN /hpf (0-5)
[2020-08-19 02:19] LABS: Red Blood Cells-Urine 0-5 SEEN /hpf (0-5)
[2020-08-19 03:00] VITALS: BP 170/76; PULSE 99; RESP 18; O2SAT 99
[2020-08-19] MEDS: Potassium Chloride Oral Tablet 20 MEQ 40 MEQ PO (03:03)
[2020-08-19 03:28] VITALS: BP 167/74; PULSE 89; RESP 16; TEMP 37.1; O2SAT 98
== END 2020-08-19 03:41 | disposition home or self-care (01) ==
PROVIDERS: Emergency Provider Emergency Medicine; PCP Family Medicine
DX: E87.6 Hypokalemia (principal); I10 Essential (primary) hypertension; R20.2 Paresthesia of skin; Z79.899 Other long term (current) drug therapy
CPT/HCPCS: 70450; 71045; 80053; 81001; 82962; 84484; 85025; 85610; 85730; 93005; 99284

== ENCOUNTER → 2020-08-23 10:21 | Outpatient (CLI) | payer MEDICARE, SELFPAY ==
[2020-08-19 00:58] VITALS: BMI 35.4
[2020-08-23 12:47] LABS: Anion Gap 3 (5-15); BUN 16 mg/dL (7-18); BUN/Creat Ratio 17.2 RATIO (10-20); Calcium,Total 8.9 mg/dL (8.5-10.1); Chloride 103 mmol/L (98-107); Creatinine, Serum 0.93 mg/dL (0.55-1.02); EST Glomerular Filtration Rate 63 mL/min (>60); Est Glom Filt Rate - Afr Amer 76 mL/min (>60); Glucose 100 mg/dL (74-106); Potassium 3.6 mmol/L (3.5-5.1); Sodium Level 138 mmol/L (136-145)
== END ==
PROVIDERS: PCP Family Medicine; Visit Provider Family Medicine
DX: E87.6 Hypokalemia (principal)
CPT/HCPCS: 36415; 80048

== ENCOUNTER → 2021-01-23 14:10 | Outpatient (CLI) | payer MEDICARE, SELFPAY ==
[2021-01-23 17:56] LABS: ALB/GLOB Ratio 0.9 RATIO (0.9-2.4); AST(SGOT) 28 U/L (15-37); Alanine Aminotransfer ALT/SGPT 26 U/L (13-56); Albumin, Serum 3.7 g/dL (3.2-5.0); Alkaline Phosphatase 89 U/L (45-117); Anion Gap 5 (5-15); BUN 18 mg/dL (7-18); Calcium,Total 9.3 mg/dL (8.5-10.1); Chloride 101 mmol/L (98-107); EST Glomerular Filtration Rate 65 mL/min (>60); Est Glom Filt Rate - Afr Amer 79 mL/min (>60); Globulin 4.3 g/dL (2.2-4.2); Glucose 91 mg/dL (74-106); Potassium 3.5 mmol/L (3.5-5.1); Sodium Level 138 mmol/L (136-145)
[2021-01-23 18:07] LABS: Hemoglobin A1c 5.2 % (3.8-5.6)
== END ==
PROVIDERS: PCP Family Medicine; Referring Provider Family Medicine; Visit Provider Family Medicine
DX: R73.9 Hyperglycemia, unspecified (principal)
CPT/HCPCS: 36415; 80053; 83036

== ENCOUNTER 2021-10-30 02:55 | Emergency (ER) | payer MEDICARE, SELFPAY ==
[2021-10-30 02:56] VITALS: BP 182/79; PULSE 74; RESP 16; TEMP 36.8; O2SAT 100; BMI 35.2
--- NOTE | 2021-10-30 03:10 | EKG12_ITS ---
Test Reason : DYSRHYTHMIA Blood Pressure : / mmHG Vent. Rate : 090 BPM Atrial Rate : 090 BPM P-R Int : 256 ms QRS Dur : 088 ms QT Int : 376 ms P-R-T Axes : 055 -34 052 degrees QTc Int : 459 ms Sinus rhythm with 1st degree A-V block Left axis deviation Low voltage QRS Septal AK, age undetermined, cannot be excluded Abnormal ECG Confirmed by BALWINDER DONAHUE, RIC ([id number]), photograph editor KEERTHI GARCIA ([id number]) on 11/04/2021 10:18:46 AM Referred By: BILL Confirmed By:RIC BRITT MD
[2021-10-30 03:31] LABS: Absolute Lymphocyte Count 1.67 X10^3/uL (0.83-4.51); Absolute Neutrophil Count 5.4 X10^3/uL (2.0-7.7); Basophil# 0.02 X10^3/uL; Basophil% 0.3 % (0-1); Eosinophil# 0.11 X10^3/uL; Eosinophils% 1.4 % (0-5); Hemoglobin 13.5 g/dL (12.0-15.0); Lymphocyte # 1.67 X10^3/ul (0.83-4.51); Lymphocyte % 21.8 % (19-41); Mean Corp Hgb Conc 32.9 g/dL (32-36); Mean Corpuscular Hgb 31.9 pg (27.0-32.0); Mean Corpuscular Volume 96.9 fL (81-99); Mean Platelet Vol. 11.2 fl (6.2-12.0); Monocyte# 0.47 X10^3/uL; Monocyte% 6.1 % (0-10); NRBC Flagged by Analyzer 0 % (0-5); Neutrophil # 5.35 X10^3/uL (2.7-7.7); Platelet Count 194 K/mm3 (150-450); RBC Distribution Width CV 13.1 % (11.6-14.6); Red Blood Count 4.23 M/mm3 (4.2-5.4); White Blood Count 7.7 K/mm3 (4.4-11.0)
--- NOTE | 2021-10-30 03:42 | EX.ED.DYSGE1 ---
HPI History of Present Illness Chief Complaint: Hypertension Informant: patient Narrative Narrative: 76-year-old female presents to the emergency department stating that she has tingling in her shoulders and her toes. She states this is happened before when her potassium is low. She has been having difficulty sleeping at night and has been noticing that sometimes her heart rate is in the 50s. Tonight her blood pressure was 150s over 90s. She states that everything started disc and concern her and she grew anxious and decided to come to emergency. She states that since arriving here she is feeling better. PFSH PFSH Home Medications cholecalciferol (vitamin D3) 25 mcg (1,000 unit) tablet (Vitamin D3) 2,000 unit PO DAILY 05/28/14 [History Last Taken Unknown] gabapentin 600 mg tablet,extended release 24 hr (Gralise) 600 mg PO DAILY 05/28/14 [History Last Taken Unknown] hydrochlorothiazide 25 mg tablet 12.5 mg PO DAILY 05/28/14 [History Last Taken Unknown] loratadine 10 mg tablet (Allergy Relief (loratadine)) 10 mg PO DAILY 05/28/14 [History Last Taken Unknown] meloxicam 7.5 mg tablet 7.5 mg PO DAILY 05/28/14 [History Last Taken Unknown] Valacyclovir Hcl [Valtrex] 1,000 mg PO DAILY 08/19/20 [History Last Taken Unknown] potassium chloride 20 mEq tablet,extended release 40 meq PO DAILY 5 days #10 tabs 10/30/21 [Rx Last Taken Unknown] Allergy/AdvReac Type Severity Reaction Status Date / Time hydrocodone AdvReac Nausea/Vom/ Verified 10/30/21 03:02 Diarrhea propoxyphene HCl AdvReac Other Verified 10/30/21 03:02 [From Mariah] Social History (Updated 10/30/21 @ 03:[address] Kaden Xiao, ) Smoking Status: Never smoker substance use type: does not use ROS ROS ED Constitutional Constitutional ED: Denies chills, fever(s) or weight loss Eyes Eyes: Denies blurry vision, change in vision or diplopia ENT ENT ED: Denies ear pain, rhinorrhea or sore throat Cardiovascular Cardiovascular: Reports other Details: Bradycardia ; Denies chest pain, orthopnea, palpitations or racing heartbeat Respiratory/Chest Respiratory/Chest: Denies cough, dyspnea or orthopnea Gastrointestinal Gastrointestinal: Denies abdominal pain, diarrhea, nausea or vomiting Genitourinary Genitourinary ED: Denies dysuria, hematuria or urinary frequency Musculoskeletal Musculoskeletal: Denies arthralgias or myalgias Integumentary Denies abscess or rash Neurologic Neurologic: Reports paresthesias; Denies headache(s) or weakness Psychiatric Psychiatric: Reports anxiety; Denies depression, suicidal ideation or suicidal thoughts Endocrine Endocrinology: Denies polydipsia, polyphagia or polyuria Allergic/Immunologic Allergic/Immunologic ED: Denies mouth swelling, tongue swelling or urticaria EXAM Physical Exam Const Vital Signs: 10/30/21 02:56 10/30/21 03:04 Temperature 98.2 F Temperature Source Temporal Pulse Rate 74 Respiratory Rate 16 Respiratory Effort Normal Respiratory Pattern Irregular Blood Pressure 182/79 H Blood Pressure Mean 113 Pulse Ox 100 Oxygen Delivery Method Room Air Positive well nourished and well developed General Appearance ED: well developed HEENT Reports normocephalic, head/scalp atraumatic and moist mucous membranes Eyes PERRL and EOMs intact bilaterally Neck no lymphadenopathy, supple and no JVD Resp normal respiratory effort and clear to auscultation bilaterally Cardio regular rate, regular rhythm and no murmurs GI normal to inspection, nondistended, normoactive bowel sounds and non-tender Palpation: soft Back/Spine no CVA tenderness and normal ROM Extremity normal to inspection General Extremety ED: Negative for edema General Extremity: Negative for edema Neuro oriented x3 and CN's II-XII intact bilaterally Sensorium / Orientation: alert Motor Exam: strength 5/5 throughout Psych mental status grossly normal Mood & Affect: Negative for depressed or tearful Skin no rashes or lesions noted and no wounds MDM MDM MDM Narrative Medical decision making narrative: Patient's potassium is 3.4. Troponin is 5. Hemoglobin 13.5 platelet count of 194. White count 7.7. Lab Data Attestation: I reviewed the patient's lab results. Labs: Laboratory Results - last 24 hr 10/30/21 10/30/21 03:21 03:21 WBC 7.7 RBC 4.23 Hgb 13.5 Hct 41.0 MCV 96.9 MCH 31.9 MCHC 32.9 RDW Std Deviation 46.0 H RDW Coeff of Daphne 13.1 Plt Count 194 MPV 11.2 Immature Gran % (Auto) 0.400 Neut % (Auto) 70.0 Lymph % (Auto) 21.8 Walker % (Auto) 6.1 Eos % (Auto) 1.4 Baso % (Auto) 0.3 Absolute Neuts (auto) 5.4 Absolute Lymphs (auto) 1.67 Nucleated RBC % 0 Sodium 138 Potassium 3.4 L Chloride 100 Carbon Dioxide 30.0 Anion Gap 8 BUN 19 H Creatinine 0.92 Estim Creat Clear Calc 44.38 Est GFR (MDRD) Af Amer 76 Est GFR (MDRD) Non-Af 63 BUN/Creatinine Ratio 20.6 H Glucose 156 H Calcium 9.3 Troponin I High Sens 5 EKG Initial EKG: Attestation: I personally reviewed and interpreted this EKG as follows: Comments: Sinus rhythm with first-degree AV block ventricular rate of 90 bpm Discharge Plan Triage Chief Complaint: Hypertension ED Provider: Kaden Xiao Dx/Rx/DC Orders Clinical Impression: Paresthesia, Acute hypokalemia, Hypertension Instructions: ED High Blood Pressure Hypertension, ED Hypokalemia Prescriptions: New potassium chloride 20 mEq tablet extended release 40 meq PO DAILY 5 Days Qty: 10 0RF No Action meloxicam 7.5 MG tablet 7.5 mg PO DAILY hydrochlorothiazide 25 MG tablet 12.5 mg PO DAILY loratadine [Allergy Relief (loratadine)] 10 MG tablet 10 mg PO DAILY cholecalciferol (vitamin D3) [Vitamin D3] 1,000 UNIT tablet 2,000 unit PO DAILY Gralise 600 MG tablet extended release 24 hr 600 mg PO DAILY Valacyclovir Hcl [Valtrex] 1,000 MG tablet 1,000 mg PO DAILY Primary Care Provider: Sudha Adler Referrals: Sudha Adler MD [Primary Care Provider] - [facility] appointment Disposition Disposition: Home, Self Care
[2021-10-30 03:59] LABS: Anion Gap 8 (5-15); BUN 19 mg/dL (7-18); BUN/Creat Ratio 20.6 RATIO (10-20); Calcium,Total 9.3 mg/dL (8.5-10.1); Chloride 100 mmol/L (98-107); Creatinine, Serum 0.92 mg/dL (0.55-1.02); EST Glomerular Filtration Rate 63 mL/min (>60); Est Glom Filt Rate - Afr Amer 76 mL/min (>60); Estimated Creatinine Clearance 44.38 ml/min; Glucose 156 mg/dL (74-106); Potassium 3.4 mmol/L (3.5-5.1); Sodium Level 138 mmol/L (136-145); Troponin-I HS 5 pg/mL (3.0-54.0)
[2021-10-30 04:41] VITALS: BP 164/76; PULSE 78; RESP 17
[2021-10-30] MEDS: Potassium Chloride Oral Tablet 20 MEQ 40 MEQ PO (04:45)
== END 2021-10-30 04:47 | disposition home or self-care (01) ==
PROVIDERS: Emergency Provider Emergency Medicine; PCP Family Medicine; Visit Provider Emergency Medicine
DX: R20.2 Paresthesia of skin (principal); E87.6 Hypokalemia; I10 Essential (primary) hypertension; Z79.899 Other long term (current) drug therapy
CPT/HCPCS: 80048; 84484; 85025; 93005; 99285; A4216

== ENCOUNTER → 2021-11-14 | Outpatient (CLI) | payer MEDICARE, SELFPAY ==
[2021-11-14 15:48] LABS: Free T3 2.7 pg/mL (2.18-3.98); T4 Free Direct 1.07 ng/dL (0.76-1.46); Thyroid Stim Hormone (TSH) 1.53 uIU/mL (0.358-3.74)
[2021-11-14 15:53] LABS: Vitamin B12 377 pg/mL (211-911)
== END | disposition home or self-care (01) ==
LOC: MTLAB 11:27
PROVIDERS: PCP Family Medicine; Referring Provider Family Medicine; Visit Provider Family Medicine
DX: E03.9 Hypothyroidism, unspecified (principal); D53.9 Nutritional anemia, unspecified
CPT/HCPCS: 36415; 82607; 84439; 84443; 84481

== ENCOUNTER 2021-11-19 10:21 | Observation (INO) | payer MEDICARE, SELFPAY ==
[2021-11-19] VITALS (14 sets, daily range): BP systolic 152–187; BP diastolic 71–125; PULSE 100–127; RESP 18–24; TEMP 36.4–37; O2SAT 98–100; BMI 34.0; BMI 32.0; BMI 33.0
--- NOTE | 2021-11-19 10:23 | EKG12_ITS ---
Test Reason : STROKE TEAM Blood Pressure : / mmHG Vent. Rate : 120 BPM Atrial Rate : 120 BPM P-R Int : 184 ms QRS Dur : 082 ms QT Int : 350 ms P-R-T Axes : 000 -24 067 degrees QTc Int : 494 ms Sinus tachycardia Low voltage QRS Nonspecific ST and T wave abnormality Abnormal ECG Confirmed by BALWINDER DONAHUE, RIC ([id number]), social media editor JUANI DICKEY ([id number]) on 11/20/2021 2:18:11 PM Referred By: Confirmed By:RIC BRITT MD
--- NOTE | 2021-11-19 10:23 | CT_ITS ---
STUDY: CT HEAD STROKE PROTOCOL W/O CONTRAST INJECTION REASON FOR EXAM: Female, 76 years old. Neuro deficit, acute, stroke suspected RADIATION DOSAGE (If Supplied By Facility): CTDIvol = ( 44.99 ) mGy, DLP = ( 745.49 ) mGycm TECHNIQUE: Transaxial CT imaging of the brain was performed without administration of intravenous contrast material. Individualized dose optimization techniques were used for this CT. COMPARISON: Comparison is made with prior study dated 08/19/2020. FINDINGS: Normal soft tissue structures. Normal calvarium. Normal size ventricles and extra-axial spaces for the patient''s age. Normal white matter tracts of the cerebral hemispheres. Normal basal ganglia and thalami. Normal brainstem. Normal cerebellum. There is no intracranial hemorrhage. There are no findings of an acute ischemic infarction. Atherosclerotic calcification of the cavernous portions of the internal carotid arteries bilaterally. Normal visualized paranasal sinuses. ASPECT score: 10 CT/STROKE Brain/Head without Cont IMPRESSION: Normal unenhanced CT scan of the brain. N.B. : The above Results were Read Back by Monico Aquino MD to Young Barnes and understanding confirmed on 11/19/2021 10:42:00 (ET). Electronically Signed: Monico Aquino MD at 10:43 EDT ,
--- NOTE | 2021-11-19 10:24 | EDS_ITS ---
HPI History of Present Illness Chief Complaint: Neuro S/Sx Detail of Chief Complaint: Slurred speech and concern for stroke Informant: patient and EMS Onset/Context/Timing Onset: Today Narrative Narrative: Patient presents the emergency department complaint of slurred speech and concern for stroke. Patient was on the phone with her daughter who is a physician at approximately 9:45 AM when her speech became slurred and patient seemed disoriented and confused. The phone then became disconnected and the daughter called EMS. Patient was found facedown with the phone in the sink apparently. Patient states she has not slept in 4 days. She denies head or neck pain. Patient denies chest pain or abdominal pain. Patient denies visual changes. She denies weakness in extremities. She denies paresthesias. She denies recent illness. [facility] Medical History (Updated 11/19/21 @ 11:[address] Young Barnes DO) Gout Home Medications cholecalciferol (vitamin D3) 25 mcg (1,000 unit) tablet (Vitamin D3) 2,000 unit PO DAILY 05/28/14 [History Last Taken Unknown] gabapentin 600 mg tablet,extended release 24 hr (Gralise) 600 mg PO DAILY 05/28/14 [History Last Taken Unknown] hydrochlorothiazide 25 mg tablet 12.5 mg PO DAILY 05/28/14 [History Last Taken Unknown] loratadine 10 mg tablet (Allergy Relief (loratadine)) 10 mg PO DAILY 05/28/14 [History Last Taken Unknown] Valacyclovir Hcl [Valtrex] 1,000 mg PO DAILY 08/19/20 [History Last Taken Unknown] allopurinol 300 mg tablet 1 tab PO DAILY 11/19/21 [History Last Taken Unknown] bupropion HCl 150 mg 24 hr tablet, extended release tab PO 11/19/21 [History Last Taken Unknown] Allergy/AdvReac Type Severity Reaction Status Date / Time hydrocodone AdvReac Nausea/Vom/ Verified 11/19/21 10:57 Diarrhea propoxyphene HCl AdvReac Other Verified 11/19/21 10:57 [From Mariah] Social History (Updated 10/30/21 @ 03:[address] Kaden Xiao DO) Smoking Status: Never smoker substance use type: does not use ROS ROS ED Review of Systems ROS Unobtainable: other Constitutional Constitutional ED: Reports lethargy; Denies chills, fever(s), sweats or weight loss Eyes Eyes: Denies blurry vision, change in vision or diplopia ENT ENT ED: Denies rhinorrhea or sore throat Cardiovascular Cardiovascular: Reports chest pain and racing heartbeat; Denies orthopnea Respiratory/Chest Respiratory/Chest: Reports dyspnea and dyspnea on exertion; Denies cough, orthopnea or sputum Gastrointestinal Gastrointestinal: Denies abdominal pain, diarrhea, nausea or vomiting Genitourinary Genitourinary ED: Denies dysuria, hematuria or urinary frequency Musculoskeletal Musculoskeletal: Denies arthralgias, back pain, myalgias or neck pain Integumentary Denies abscess, Abrasions or rash Neurologic Neurologic: Reports other Details: Slurred speech ; Denies headache(s) or weakness Psychiatric Psychiatric: Denies anxiety, depression or suicidal thoughts Endocrine Endocrinology: Denies polydipsia, polyphagia or polyuria Hematologic/Lymphatic Hematologic/Lymphatic: Denies easy bleeding, easy bruising or lymphadenopathy Allergic/Immunologic Allergic/Immunologic ED: Denies mouth swelling, tongue swelling or urticaria EXAM Physical Exam Const Vital Signs: 11/19/21 10:22 11/19/21 10:34 11/19/21 10:39 Temperature 97.9 F Temperature Source Temporal Pulse Rate 127 H 120 H Respiratory Rate 18 19 H Blood Pressure 165/83 H 187/82 H Blood Pressure Mean 110 117 Pulse Ox 100 100 100 Oxygen Delivery Method Room Air Room Air Room Air 11/19/21 10:35 11/19/21 10:53 Temperature Temperature Source Pulse Rate 124 H 123 H Respiratory Rate 18 24 H Blood Pressure 187/82 H 159/77 H Blood Pressure Mean 117 104 Pulse Ox 100 100 Oxygen Delivery Method Room Air Room Air Positive well nourished and well developed General Appearance ED: well developed and NAD HEENT Reports TM's clear and moist mucous membranes normocephalic; Negative for trauma or tenderness Nose: other Other Details: Patient with some dried blood about the lips. Tympanic Membrane ED: Yes TM's clear Eyes PERRL and EOMs intact bilaterally General Eye ED: Negative for pale conjunctiva or scleral icterus Neck no lymphadenopathy, supple and no JVD General: Negative for tenderness Chest Wall inspection of chest normal and palpation of chest normal Chest: Negative for tenderness Resp normal respiratory effort and clear to auscultation bilaterally Effort and Inspection: Negative for respiratory distress or pain with movement Auscultation: Negative for rhonchi, wheezes or diminished lung sounds Cardio regular rate, regular rhythm, S1 normal heart sound, S2 normal heart sound and no murmurs Peripheral Pulses: pulses 2+ throughout GI normal to inspection, nondistended, normoactive bowel sounds, soft to palpation, non-tender, non-distended and no masses Back/Spine no CVA tenderness and no thoracic nor lumbar tenderness Extremity normal to inspection General Extremety ED: Negative for edema General Extremity: Negative for edema Neuro CN's II-XII intact bilaterally, no sensory deficits noted and gait normal Neuro Narrative: Patient alert to person and place. She did not tell me the year. NIH stroke scale was 0. No focal deficits noted. I do not currently appreciate slurred speech. Sensorium / Orientation: awake, alert, oriented to person, oriented to place and oriented to time Motor Exam: strength 5/5 throughout and strength abnormal Psych mental status grossly normal Skin no rashes or lesions noted and no wounds STROKE Vital Signs/Narrative: Vital Signs Temp Pulse Resp BP Pulse Ox O2 Del Method 11/19/21 10:53 123 H 24 H 159/77 H 100 Room Air 11/19/21 10:35 124 H 18 187/82 H 100 Room Air 11/19/21 10:39 100 Room Air 11/19/21 10:34 120 H 19 H 187/82 H 100 Room Air 11/19/21 10:22 97.9 F 127 H 18 165/83 H 100 Room Air MDM MDM MDM Narrative Medical decision making narrative: IV line established on arrival. Stroke team was called prior to EMS arrival. On arrival her NIH stroke scale was 0. CT scan of the brain was unremarkable and CTA of the head and neck was unremarkable. Patient was evaluated by stroke neurologist. Etiology of symptoms unclear. 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 Patient tells me she has not slept in 4 nights. Case will be discussed with hospitalist evaluate patient for admission. Is possible she may have had a syncopal episode as she was found down on the ground and the phone was in the sink. Is unclear if she had a vagal episode. Case will be discussed with hospitalist evaluate patient for admission. Lab Data Attestation: I reviewed the patient's lab results. Labs: Laboratory Results - last 24 hr 11/19/21 11/19/21 11/19/21 10:42 10:42 10:42 WBC 10.6 RBC 3.77 L Hgb 12.1 Hct 36.4 L MCV 96.6 MCH 32.1 H MCHC 33.2 RDW Std Deviation 46.2 H RDW Coeff of Daphne 13.1 Plt Count 213 MPV 11.0 Immature Gran % (Auto) 0.300 Neut % (Auto) 83.4 H Lymph % (Auto) 9.5 L [place] % (Auto) 6.5 Eos % (Auto) 0.1 Baso % (Auto) 0.2 Absolute Neuts (auto) 8.9 H Absolute Lymphs (auto) 1.01 Nucleated RBC % 0 PT 13.9 INR 1.1 APTT 29.8 Sodium 132 L Potassium 3.8 Chloride 97 L Carbon Dioxide 22.0 Anion Gap 13 BUN 17 Creatinine 1.02 Estim Creat Clear Calc 40.03 Est GFR (MDRD) Af Amer 68 Est GFR (MDRD) Non-Af 56 L BUN/Creatinine Ratio 16.7 Glucose 166 H Calcium 8.8 Troponin I High Sens 4 Radiography Diagnostic Testing: Clinical Impression(s) from Imaging Studies Brain CT 11/19/21 10:23 IMPRESSION: Normal unenhanced CT scan of the brain. N.B. : The above Results were Read Back by Monico Aquino MD to Young Barnes and understanding confirmed on 11/19/2021 10:42:00 (ET). Electronically Signed: Monico Aquino MD at 10:43 EDT , Head/Neck CTA 11/19/21 10:24 IMPRESSION: Normal CTA Head and neck with contrast. Electronically Signed: Monico Aquino MD at 10:51 EDT , ADDENDUM: 11/19/21 1104 IMPRESSION: Normal CTA Head and neck with contrast. N.B. : The above Results were Read Back by Monico Aquino MD to Young Barnes and understanding confirmed on 11/19/2021 10:57:12 (ET). Electronically Signed: Monico Aquino MD at 10:51 EDT , 1 view chest x-ray obtained interpreted by myself as no acute disease process. Report from radiology pending. EKG Initial EKG: Attestation: I personally reviewed and interpreted this EKG as follows: Comments: Sinus tachycardia rhythm with a rate of [address] changes Discharge Plan Triage Chief Complaint: Neuro S/Sx ED Provider: Young Barnes Dx/Rx/DC Orders Clinical Impression: Fall, Slurred speech, Lisa Prescriptions: No Action hydrochlorothiazide 25 MG tablet 12.5 mg PO DAILY loratadine [Allergy Relief (loratadine)] 10 MG tablet 10 mg PO DAILY cholecalciferol (vitamin D3) [Vitamin D3] 1,000 UNIT tablet 2,000 unit PO DAILY Gralise 600 MG tablet extended release 24 hr 600 mg PO DAILY Valacyclovir Hcl [Valtrex] 1,000 MG tablet 1,000 mg PO DAILY allopurinol 300 mg tablet 1 tab PO DAILY bupropion HCl 150 mg tablet extended release 24 hr PO Primary Care Provider: Sudha Adler Referrals: Sudha Adler MD [Primary Care Provider] - Disposition Disposition: Acute Care Hospital [facility]
--- NOTE | 2021-11-19 10:24 | CT_ITS ---
We are attempting to reach an attending provider to discuss findings. An addendum with communication details will be sent when the communication is complete. STUDY: CTA HEAD AND NECK WITH CONTRAST REASON FOR EXAM: Female, 76 years old. Neuro deficit, acute, stroke suspected RADIATION DOSAGE (If Supplied By Facility): CTDIvol = ( 20.03 ) mGy, DLP = ( 689.73 ) mGycm TECHNIQUE: CT angiography was performed with a multi-detector CT scanner. Data acquisition was obtained from the skull base through the vertex following intravenous administration of isovue 370 100 ml. MIP images were reconstructed from the axial data set. Post-processing of the angiographic images was performed, with multiplanar reformation and 3D reconstruction. Individualized dose optimization techniques were used for this CT. COMPARISON: No relevant priors. FINDINGS: Normal bilateral petrous carotid arteries. There is calcified plaque formation of the right cavernous carotid artery, without a cross-sectional luminal stenosis. There is calcified plaque formation of the left cavernous carotid artery, without a cross-sectional luminal stenosis. Normal right A1 segments of the anterior cerebral artery. Normal left A1 segments of the anterior cerebral artery. Normal intact anterior communicating artery (ACOM). Normal bilateral A2 segments of the anterior cerebral arteries. Normal right M1 and M2 segments of the middle cerebral arteries, with a normal M1 bifurcation. Normal left M1 and M2 segments of the middle cerebral arteries, with a normal M1 bifurcation. Normal right posterior communicating artery (PCOM). Normal left posterior communicating artery (PCOM). Normal bilateral vertebral arteries. Normal basilar artery with a normal basilar bifurcation. The visualized bilateral superior cerebellar (SCA) arteries are normal. Normal bilateral P1, P2 and visualized P3 segments of the posterior cerebral arteries. There is no demonstrated aneurysm of the telida of [place]. There is no demonstrated abnormality of the visualized brain. AORTIC ARCH: There is atherosclerotic calcific plaque formation of the aortic arch and great vessels arising from the aortic arch, without a hemodynamically significant stenosis. There is a bovine origin of the great vessels with a common origin of the brachiocephalic and left common carotid artery. Normal origin of the left subclavian artery. RIGHT CAROTID ARTERIES: Normal right common carotid artery (CCA). Normal right common carotid bulb. Normal origin of the right internal carotid (ICA) artery without a hemodynamically significant stenosis. Normal visualized cervical portion of the right internal carotid artery. Normal origin of the right external carotid artery (ECA). LEFT CAROTID ARTERIES: Normal left common carotid artery (CCA). Normal left common carotid bulb. Normal origin of the left internal carotid (ICA) artery without a hemodynamically significant stenosis. Normal visualized cervical portion of the left internal carotid artery. Normal origin of the left external carotid artery (ECA). VERTEBRAL ARTERIES: Normal bilateral vertebral arteries. CT/STROKE CTA Head AND Neck W/Con IMPRESSION: Normal CTA Head and neck with contrast. Electronically Signed: Monico Aquino MD at 10:51 EDT ,
[2021-11-19 10:49] LABS: Absolute Lymphocyte Count 1.01 X10^3/uL (0.83-4.51); Absolute Neutrophil Count 8.9 X10^3/uL (2.0-7.7); Basophil# 0.02 X10^3/uL; Basophil% 0.2 % (0-1); Eosinophil# 0.01 X10^3/uL; Eosinophils% 0.1 % (0-5); Hematocrit 36.4 % (37-47); Hemoglobin 12.1 g/dL (12.0-15.0); Lymphocyte # 1.01 X10^3/ul (0.83-4.51); Lymphocyte % 9.5 % (19-41); Mean Corp Hgb Conc 33.2 g/dL (32-36); Mean Corpuscular Hgb 32.1 pg (27.0-32.0); Mean Corpuscular Volume 96.6 fL (81-99); Monocyte# 0.69 X10^3/uL; Monocyte% 6.5 % (0-10); NRBC Flagged by Analyzer 0 % (0-5); Neutrophil # 8.87 X10^3/uL (2.7-7.7); Neutrophil % 83.4 % (47-70); Platelet Count 213 K/mm3 (150-450); RBC Distribution Width CV 13.1 % (11.6-14.6); RBC Distribution Width SD 46.2 fl (35.1-43.9); Red Blood Count 3.77 M/mm3 (4.2-5.4); White Blood Count 10.6 K/mm3 (4.4-11.0)
[2021-11-19 10:58] LABS: International Normalized Ratio 1.1; Prothrombin Time (Protime)PT. 13.9 SECONDS (11.7-14.9)
[2021-11-19 10:59] LABS: Partial Thromboplast Time 29.8 Seconds (24.1-36.2)
[2021-11-19] MEDS: 0.9% Normal Saline 1,000 ML 100 ML IV (11:03)
[2021-11-19 11:05] LABS: Anion Gap 13 (5-15); BUN 17 mg/dL (7-18); BUN/Creat Ratio 16.7 RATIO (10-20); Calcium,Total 8.8 mg/dL (8.5-10.1); Chloride 97 mmol/L (98-107); Creatinine, Serum 1.02 mg/dL (0.55-1.02); EST Glomerular Filtration Rate 56 mL/min (>60); Est Glom Filt Rate - Afr Amer 68 mL/min (>60); Estimated Creatinine Clearance 40.03 ml/min; Glucose 166 mg/dL (74-106); Potassium 3.8 mmol/L (3.5-5.1); Sodium Level 132 mmol/L (136-145); Troponin-I HS 4 pg/mL (3.0-54.0)
--- NOTE | 2021-11-19 11:14 | CM.ED ---
SW Note Referral Source: Stroke Alert Referral Reason: Stroke Alert SW was present when patient was brought to the ED. No family present. SW went to the room and no family present. SW remains available if needs arise. Lucia MILLER
--- NOTE | 2021-11-19 12:19 | ED.RN ---
Spoke to Milli, daughter, gives hx of patient having manic episodes with depression and anxiety since passing of spouse 10 years prior.
--- NOTE | 2021-11-19 12:30 | RAD_ITS ---
STUDY: X-RAY CHEST REASON FOR EXAM: Female, 76 years old. Neuro deficit, acute, stroke suspected TECHNIQUE: Single AP portable view of the chest. COMPARISON: Comparison is made with prior study dated 08/19/2020. FINDINGS: EKG electrodes are seen. The lungs are clear and expanded. There is no demonstrated pleural abnormality. Normal size heart. There is calcification of the mitral valve annulus. Normal mediastinum and esha. Normal visualized pulmonary arteries. There is atherosclerotic calcification of the aortic arch with tortuosity. There are diffuse degenerative changes of the visualized thoracic spine. Mild dextroscoliosis. Prior ORIF of a proximal left humeral fracture. There is no demonstrated abnormality of the visualized soft tissue structures of the upper abdomen. RAD/Chest 1 View IMPRESSION: No acute abnormality is seen. Electronically Signed: Monico Aquino MD at 12:59 EDT ,
[2021-11-19 13:05] LABS: Bacteria 0 SEEN /hpf (None Seen); Mucous, Urine 0 SEEN /hpf (<or=2+); Red Blood Cells-Urine 0 SEEN /hpf (0-5)
[2021-11-19 13:21] LABS: Color, Urine Yellow (Yellow); Glucose, Dipstick Normal (Normal); Ketone-Dipstick Negative (Negative); Leukocyte Esterase-Dipstick Negative /ul (Negative); Nitrite-Dipstick Negative (Negative); Occult Blood-Urine 10 /ul (Negative); Protein-Dipstick 15 mg/dl (Negative); Specific Gravity, Urine 1.005 (1.002-1.030); Urine Bilirubin Dipstick Negative (Negative); Urine Clarity Clear (Clear); Urine Urobilinogen Normal (Normal)
[2021-11-19 13:33] LABS: Squamous Epithelial Cells - UA 0-5 SEEN /hpf (5-10); White Blood Cells 0-5 SEEN /hpf (0-5)
--- NOTE | 2021-11-19 14:06 | PCM.HP.STD ---
Documented by User: Francesca Trujillo NP, [employer]TER-C 11/19/21 14:34 HPI - General General Date of Admission: 11/19/21 Date of Service: 11/19/21 Chief Complaint: Altered mental status. HPI Narrative JASEN ANDERSEN, is a 76 F who presents to the emergency room due to stuttering speech. Patient manic during exam with fast continuous speech, flight of ideas and unable to participate in HPI. Patient talking about childhood events, passing, etc. Patient persistently yelling out. Spoke with patient's daughter, Elizabeth on the phone who states patient has been talkative and manic for the past few weeks however worsened over the past several days. She states patient's October 22, 2021 and since then, patient has had ongoing mental health concerns. Daughter reports a history of anxiety and that patient at times can be very talkative. She has no formal mental health evaluation in the past. Daughter states patient has not slept in 4 nights and has not been eating or drinking. She was started on Wellbutrin by her primary care provider 11/06/2021. Daughter reports she called patient today and patient was again talking to the point that she cannot be interrupted however today was different and that she was noted to be stuttering and unable to get her words out. The squad was called with concern for stroke. [facility] Medical History (Updated 11/19/21 @ 11:[address] Young Barnes, ) Gout Medical History unable to obtain unable to obtain Home Medications cholecalciferol (vitamin D3) 25 mcg (1,000 unit) tablet (Vitamin D3) 2,000 unit PO DAILY 05/28/14 [History Last Taken Unknown] gabapentin 600 mg tablet,extended release 24 hr (Gralise) 600 mg PO DAILY 05/28/14 [History Last Taken Unknown] hydrochlorothiazide 25 mg tablet 12.5 mg PO DAILY 05/28/14 [History Last Taken Unknown] loratadine 10 mg tablet (Allergy Relief (loratadine)) 10 mg PO DAILY 05/28/14 [History Last Taken Unknown] Valacyclovir Hcl [Valtrex] 1,000 mg PO DAILY 08/19/20 [History Last Taken Unknown] allopurinol 300 mg tablet 1 tab PO DAILY 11/19/21 [History Last Taken Unknown] bupropion HCl 150 mg 24 hr tablet, extended release 1 tab PO DAILY 11/19/21 [History Last Taken Unknown] Allergy/AdvReac Type Severity Reaction Status Date / Time hydrocodone AdvReac Nausea/Vom/ Verified 11/19/21 10:57 Diarrhea propoxyphene HCl AdvReac Other Verified 11/19/21 10:57 [From Mariah] Family History unable to obtain unable to obtain Surgical History unable to obtain unable to obtain Social History (Updated 10/30/21 @ 03:[address] Kaden Xiao, DO) Smoking Status: Never smoker substance use type: does not use ROS Review of Systems ROS Unobtainable: due to mental condition and due to mental status Vital Signs Vital Signs Vital Signs: 11/19/21 10:22 11/19/21 10:34 11/19/21 10:39 Temperature 97.9 F Temperature Source Temporal Pulse Rate 127 H 120 H Respiratory Rate 18 19 H Blood Pressure 165/83 H 187/82 H Blood Pressure Mean 110 117 Pulse Ox 100 100 100 Oxygen Delivery Method Room Air Room Air Room Air 11/19/21 10:35 11/19/21 10:53 11/19/21 11:45 Temperature Temperature Source Pulse Rate 124 H 123 H 121 H Respiratory Rate 18 24 H 19 H Blood Pressure 187/82 H 159/77 H 161/81 H Blood Pressure Mean 117 104 107 Pulse Ox 100 100 100 Oxygen Delivery Method Room Air Room Air Room Air 11/19/21 11:49 11/19/21 12:00 11/19/21 13:00 Temperature 98.3 F Temperature Source Temporal Pulse Rate 123 H 100 111 H Respiratory Rate 19 H 20 H 22 H Blood Pressure 161/81 H 170/76 H 152/125 H Blood Pressure Mean 107 107 134 Pulse Ox 100 99 99 Oxygen Delivery Method Room Air Room Air Room Air 11/19/21 11:30 Temperature Temperature Source Pulse Rate Respiratory Rate Blood Pressure Blood Pressure Mean Pulse Ox 98 Oxygen Delivery Method Room Air Weight Weight: 180 lb 12.465 oz Body Mass Index (BMI) 32.0 Physical Exam Const Constitutional Narrative: Patient talking very fast with flight of ideas, unable to participate in orientation questions or carry an appriate conversation. HEENT Mouth: dry mucous membranes Eyes PERRL, EOMs intact bilaterally and conjunctivae normal Neck no lymphadenopathy Resp normal respiratory effort and clear to auscultation bilaterally Cardio regular rate and regular rhythm GI normal to inspection, nondistended, normoactive bowel sounds Extremity normal to inspection Neuro CN's II-XII intact bilaterally, moves all extremities and no focal motor deficits Psych Mood & Affect: anxious Thought Process: flight of ideas Results Lab / Micro Data Result Diagrams: 11/19/21 10:42 11/19/21 10:42 Labs: Laboratory Results - last 24 hr 11/19/21 10:42: WBC 10.6, RBC 3.77 L, Hgb 12.1, Hct 36.4 L, MCV 96.6, MCH 32.1 H, MCHC 33.2, RDW Std Deviation 46.2 H, RDW Coeff of Daphne 13.1, Plt Count 213, MPV 11.0, Immature Gran % (Auto) 0.300, Neut % (Auto) 83.4 H, Lymph % (Auto) 9.5 L, [place] % (Auto) 6.5, Eos % (Auto) 0.1, Baso % (Auto) 0.2, Absolute Neuts (auto) 8.9 H, Absolute Lymphs (auto) 1.01, Nucleated RBC % 0 11/19/21 10:42: PT 13.9, INR 1.1, APTT 29.8 11/19/21 10:42: Sodium 132 L, Potassium 3.8, Chloride 97 L, Carbon Dioxide 22.0, Anion Gap 13, BUN 17, Creatinine 1.02, Estim Creat Clear Calc 40.03, Est GFR (MDRD) Af Amer 68, Est GFR (MDRD) Non-Af 56 L, BUN/Creatinine Ratio 16.7, Glucose 166 H, Calcium 8.8, Troponin I High Sens 4 11/19/21 13:00: Urine Color Yellow, Urine Clarity Clear, Urine pH 7.0, Ur Specific Addy 1.005, Urine Protein 15 H, Urine Glucose (UA) Normal, Urine Ketones Negative, Urine Occult Blood 10 H, Urine Nitrite Negative, Urine Bilirubin Negative, Urine Urobilinogen Normal, Ur Leukocyte Esterase Negative, Urine RBC 0 SEEN, Urine WBC 0-5 SEEN, Ur Squamous Epith Cells 0-5 SEEN, Urine Bacteria 0 SEEN, Urine Mucus 0 SEEN Radiology Impression Brain CT 11/19/21 10:23 IMPRESSION: Normal unenhanced CT scan of the brain. N.B. : The above Results were Read Back by Monico Aquino MD to Young Barnes and understanding confirmed on 11/19/2021 10:42:00 (ET). Electronically Signed: Monico Aquino MD at 10:43 EDT , Head/Neck CTA 11/19/21 10:24 IMPRESSION: Normal CTA Head and neck with contrast. Electronically Signed: Monico Aquino MD at 10:51 EDT , ADDENDUM: 11/19/21 1104 IMPRESSION: Normal CTA Head and neck with contrast. N.B. : The above Results were Read Back by Monico Aquino MD to Young Barnes and understanding confirmed on 11/19/2021 10:57:12 (ET). Electronically Signed: Monico Aquino MD at 10:51 EDT , Chest X-Ray 11/19/21 12:30 IMPRESSION: No acute abnormality is seen. Electronically Signed: Monico Aquino MD at 12:59 EDT , Assessment & Plan Assessment/Plan (1) Slurred speech: PLAN: Plan 1. Stuttered speech- rule out TIA/CVA-patient appears manic. Pressured speech, flight of ideas. Obtain MRI of brain to rule out stroke. If MRI unremarkable, will consult behavioral health/crisis. Initiate Seroquel 25 mg twice daily. Continue stroke protocol pending MRI results including aspirin, statin, PT/OT/ST. No evidence of metabolic/infectious etiology. 2. Gout-on allopurinol. DVT prophylaxis- Lovenox sc This patient was seen by TATI Miller under the supervision of Dr. Santos. Time spent examining patient, reviewing data and subsequent management of care: 26 minutes Documented by User: Dr. Aurelio Santos MD 11/19/21 15:29 HPI - General General Date of Admission: 11/19/21 [facility] Medical History (Updated 11/19/21 @ 11:[address] Young Barnes DO) Gout Medical History unable to obtain Home Medications cholecalciferol (vitamin D3) 25 mcg (1,000 unit) tablet (Vitamin D3) 2,000 unit PO DAILY 05/28/14 [History Last Taken Unknown] gabapentin 600 mg tablet,extended release 24 hr (Gralise) 600 mg PO DAILY 05/28/14 [History Last Taken Unknown] hydrochlorothiazide 25 mg tablet 12.5 mg PO DAILY 05/28/14 [History Last Taken Unknown] loratadine 10 mg tablet (Allergy Relief (loratadine)) 10 mg PO DAILY 05/28/14 [History Last Taken Unknown] Valacyclovir Hcl [Valtrex] 1,000 mg PO DAILY 08/19/20 [History Last Taken Unknown] allopurinol 300 mg tablet 1 tab PO DAILY 11/19/21 [History Last Taken Unknown] bupropion HCl 150 mg 24 hr tablet, extended release 1 tab PO DAILY 11/19/21 [History Last Taken Unknown] Allergy/AdvReac Type Severity Reaction Status Date / Time hydrocodone AdvReac Nausea/Vom/ Verified 11/19/21 10:57 Diarrhea propoxyphene HCl AdvReac Other Verified 11/19/21 10:57 [From Mariah] Family History unable to obtain Surgical History unable to obtain Social History (Updated 10/30/21 @ 03:[address] Kaden Xiao DO) Smoking Status: Never smoker substance use type: does not use Results Lab / Micro Data Result Diagrams: 11/19/21 10:42 07/20/22 10:42 Assessment & Plan Assessment/Plan (1) Slurred speech: Charges/Coding Addendum Addendum: Addendum: Dr. Santos I personally examined the patient and reviewed the chart. I agree with the above. 76-year-old female presents from home with concern for stroke. Apparently she was on the phone with her daughter when she started stuttering/slurring her speech and then the line went . Her daughter called EMS who arrived at the house and found her on the ground and the phone was in the sink. Unfortunate the patient is unable to provide much history as she is having significantly rapid speech and flight of ideas apparently this has been going on for some time according to the daughter. She was recently started on Wellbutrin, after her in October but I am unsure as to how long she has been having any type of flight of ideas/rapid speech. Plan will be to start her on Seroquel as she is also not been sleeping very well consistent with some lisa. We will proceed with stroke rule out and obtain an MRI if possible if this is negative we will consult crisis to evaluate her for psych placement to initiate treatment. Clinical time spent in all aspects of patient care: 35 minutes Visit Charges OBSV E&M: 77528 Initial observation care L2
--- NOTE | 2021-11-19 14:22 | MRI_ITS ---
STUDY: MRI BRAIN WITHOUT CONTRAST REASON FOR EXAM: Female, 76 years old. CVA TECHNIQUE: Standardized multiplanar fat and water weighted pulse sequences were obtained. COMPARISON: 11/19/2021 FINDINGS: Normal size of the ventricles and extra-axial spaces for the patient''s age. Normal white matter tracts of the supratentorial brain. Normal bilateral basal ganglia. Normal thalami. There is no extra-axial fluid accumulation. Normal flow voids within the major intracranial circulation suggesting patency by spin echo criteria. Normal sella turcica, pituitary gland, infundibular stalk, optic chiasm and hypothalamus. Normal tectal plate and pineal gland. Normal midbrain, lion and medulla. Normal cerebellum. Normal basal cisterns. Normal bilateral temporal bones. Normal bilateral internal auditory canals. No demonstrated orbital abnormality, within the constraints of a routine brain study. Normal visualized paranasal sinuses. Normal calvarium and skull base. Normal visualized soft tissue structures. Normal visualized upper cervical spine. MRI/Brain without Contrast IMPRESSION: Normal unenhanced MRI of the brain. Electronically Signed: Milton Francisco MD at 16:21 EDT ,
[2021-11-19] MEDS: QUEtiapine 25 MG Tablet PO (14:36)
--- NOTE | 2021-11-19 16:00 | ECHOCS_ITS ---
Reason For Study: TIA/CVA Procedure This was a 2D Doppler, Color Flow transthoracic echocardiogram. The study was technically difficult. Exam performed portable in patient room. Left Ventricle Normal LV size. Left ventricular systolic function is normal. The estimated ejection fraction is 60 %. Stage 1 diastolic dysfunction. No regional wall motion abnormalities noted. Right Ventricle Normal RV size. Normal systolic function. Atria Normal left atrium. Normal right atrium. Bubble contrast study negative for right to left interatrial shunt. Mitral Valve There is mild mitral annular calcification. Tricuspid Valve Normal tricuspid valve. Mild tricuspid valve insufficiency. Pulmonary artery systolic pressure is 36 mmHg. Aortic Valve Normal aortic valve. Trisinus/trileaflet aortic valve. Pulmonic Valve Normal pulmonic valve. Great Vessels Normal aortic root. The pulmonary artery is normal size. Normal inferior vena cava. Pericardium/Pleural No pericardial effusion. Medication Diluted definity 2ml given slow IV push to enhance endocardial definition. Performed a rapid injection of agitated mix of 9 cc saline and 1cc air to assess for atrial septal defect. MMode/2D Measurements & Calculations LVIDd: 3.8 cm IVSd: 0.90 cm Ao root diam: 3.0 cm LVIDs: 2.6 cm LVPWd: 1.1 cm FS: 29.9 % LAV(MOD-bp): 25.3 ml LVAd ap4: 19.5 cm2 SV(MOD-sp4): 25.5 ml LAV(MOD-bp) Indexed: 13.5 ml/m2 LVLd ap4: 6.9 cm LAV(MOD-sp2): 26.1 ml EDV(MOD-sp4): 45.2 ml LAV(MOD-sp4): 23.8 ml EDV(sp4-el): 46.8 ml LVAs ap4: 11.9 cm2 LVLs ap4: 6.1 cm ESV(MOD-sp4): 19.7 ml ESV(sp4-el): 19.7 ml EF(MOD-sp4): 56.4 % EF(sp4-el): 57.9 % SV(sp4-el): 27.1 ml LA A4 area: 12.1 cm2 LA dimension(2D): 2.7 cm RA A4 area: 12.5 cm2 Doppler Measurements & Calculations MV E max víctor: 79.3 cm/sec Lat Peak E' Víctor: 8.8 cm/sec Med Peak E' Víctor: 9.9 cm/sec MV A max víctor: 120.6 cm/sec E/E' lat: 9.0 E/E' med: 8.0 MV E/A: 0.66 MV P1/2t max víctor: 79.8 cm/sec Ao V2 max: 137.0 cm/sec LV V1 max: 133.1 cm/sec MV P1/2t: 76.8 msec Ao max P.5 mmHg LV V1 max P.1 mmHg MV dec slope: 304.7 cm/sec2 MVA(P1/2t): 2.9 cm2 PA V2 max: 107.1 cm/sec TR max víctor: 284.1 cm/sec TR max P.3 mmHg ECHO/Echo Complete W/ Contrast Interpretation Summary Normal LV size. Left ventricular systolic function is normal. The estimated ejection fraction is 60 %. Bubble contrast study negative for right to left interatrial shunt. Pulmonary artery systolic pressure is 36 mmHg. Stage 1 diastolic dysfunction. Contrast injection was performed. Ordering Physician: Aurelio Santos Referring Physician: IBAN RUDOLPH Performed By: Antonette Dixon RDCS
--- NOTE | 2021-11-19 17:09 | NURSING ---
Consult called to Tasha at crisis. VM left.
--- NOTE | 2021-11-19 18:26 | NURSING ---
Repeat phonecall plaed to crisis. Spoke with Thea and explained patients situation. Thea stated that she would call Anni to come and do an in person assessment.
[2021-11-19] MEDS: Gabapentin 600 MG Tablet PO (22:13)
[2021-11-19] MEDS: Allopurinol 300 MG Tablet PO (22:13)
[2021-11-19] MEDS: QUEtiapine 25 MG Tablet 50 MG PO (22:15)
[2021-11-19] MEDS: Atorvastatin Calcium 80 MG Tablet PO (22:16)
[2021-11-19] MEDS: Pramipexole Di-HCl 0.5 MG Tablet PO (22:16)
[2021-11-19] MEDS: Acyclovir 200 MG Capsule 400 MG PO (23:02)
[2021-11-20] VITALS (11 sets, daily range): BP systolic 126–138; BP diastolic 57–88; PULSE 71–94; RESP 18; TEMP 36.2–36.9; O2SAT 96–100; BMI 33.0
[2021-11-20] MEDS: Acetaminophen 325 MG Tablet 650 MG PO (00:47)
--- NOTE | 2021-11-20 01:25 | NURSING ---
Called crisis to update about pt, but only the dozer operator answered and said that she will relay a message and will call back. This RN left her name, and unit number to call back.
[2021-11-20] MEDS: Acyclovir 200 MG Capsule 400 MG PO ×5 (05:35→23:30)
[2021-11-20] MEDS: Enoxaparin 40 MG/0.4 ML Syringe SC (05:36)
[2021-11-20 06:28] LABS: Absolute Lymphocyte Count 0.77 X10^3/uL (0.83-4.51); Absolute Neutrophil Count 6.2 X10^3/uL (2.0-7.7); Basophil# 0.01 X10^3/uL; Basophil% 0.1 % (0-1); Eosinophil# 0.03 X10^3/uL; Eosinophils% 0.4 % (0-5); Hematocrit 33.8 % (37-47); Hemoglobin 11.4 g/dL (12.0-15.0); Lymphocyte # 0.77 X10^3/ul (0.83-4.51); Mean Corp Hgb Conc 33.7 g/dL (32-36); Mean Corpuscular Hgb 32.3 pg (27.0-32.0); Mean Corpuscular Volume 95.8 fL (81-99); Mean Platelet Vol. 11.3 fl (6.2-12.0); Monocyte# 0.61 X10^3/uL; Monocyte% 7.9 % (0-10); NRBC Flagged by Analyzer 0 % (0-5); Neutrophil # 6.24 X10^3/uL (2.7-7.7); Neutrophil % 81.2 % (47-70); Platelet Count 193 K/mm3 (150-450); RBC Distribution Width CV 13.1 % (11.6-14.6); RBC Distribution Width SD 45.7 fl (35.1-43.9); Red Blood Count 3.53 M/mm3 (4.2-5.4); White Blood Count 7.7 K/mm3 (4.4-11.0)
[2021-11-20 06:58] LABS: Anion Gap 9 (5-15); BUN 15 mg/dL (7-18); BUN/Creat Ratio 15.4 RATIO (10-20); Calcium,Total 8.9 mg/dL (8.5-10.1); Chloride 103 mmol/L (98-107); Cholesterol 104 mg/dL (200); Creatinine, Serum 0.98 mg/dL (0.55-1.02); EST Glomerular Filtration Rate 59 mL/min (>60); Est Glom Filt Rate - Afr Amer 72 mL/min (>60); Estimated Creatinine Clearance 41.66 ml/min; Glucose 178 mg/dL (74-106); High Density Lipoprotein 43 mg/dL; Sodium Level 139 mmol/L (136-145); Triglycerides 73 mg/dL; Very Low Density Lipoprotein 15 mg/dL (5-40)
--- NOTE | 2021-11-20 07:05 | TELEMED_ITS ---
[facility] Telemed has confirmed receipt of a request for visit. This document confirms receipt of the order initiating the consult. To find the results of the consultation, please view the patient's reports for the scanned Telemed Consult.
[2021-11-20] MEDS: Folic Acid 1 MG Tablet PO (07:58)
[2021-11-20] MEDS: Allopurinol 300 MG Tablet PO (07:58)
[2021-11-20] MEDS: Cyanocobalamin 500 MCG Tablet PO (07:58)
[2021-11-20] MEDS: Loratadine 10 MG Tablet PO (07:58)
[2021-11-20] MEDS: hydroCHLOROthiazide 12.5mg 12.5 MG PO (07:58)
[2021-11-20] MEDS: Aspirin 81 MG TAB.CHEW PO (07:58)
[2021-11-20] MEDS: QUEtiapine 25 MG Tablet PO ×2 (07:58→10:33)
[2021-11-20 08:01] LABS: Phosphorus 3.4 mg/dL (2.5-4.9)
[2021-11-20] MEDS: Potassium Chloride Oral Tablet 20 MEQ 60 MEQ PO (10:33)
[2021-11-20 11:13] LABS: Amphetamine Urine VISTA NEGATIVE (<1000 ng/mL); Barbiturate Urine VISTA NEGATIVE (< 200 ng/mL); Benzodiazepine Urine VISTA NEGATIVE (< 200 ng/mL); Cocaine Urine VISTA NEGATIVE (< 300 ng/mL); Ecstacy Urine VISTA POSITIVE (< 500 ng/mL); Methadone Urine VISTA NEGATIVE (< 300 ng/mL); PCP Urine VISTA NEGATIVE (< 25 ng/mL); THC Urine VISTA NEGATIVE (< 50 ng/mL); Vista UDS pH Range 7
--- NOTE | 2021-11-20 11:21 | NURSING ---
According to Kassie, deneen, use of wellbutrin can cause a tox screen to be positive for MDMA.
--- NOTE | 2021-11-20 11:28 | PN.HOSP_ITS ---
Documented by User: Kia Luo NP-C 11/20/21 11:34 Subjective Subjective Patient seen and examined. Patient continues to ramble nonsensically and having flight of ideas. Objective Data Objective Data Vital Signs: Vital Signs Temp Pulse Resp BP Pulse Ox O2 Del Method 98.2 F 71 18 127/88 H 96 Room Air 11/20/21 04:25 11/20/21 07:00 11/20/21 04:25 11/20/21 04:25 11/20/21 07:24 11/20/21 08:08 Oxygen Delivery Method Room Air Weight: 186 lb 4.65 oz Body Mass Index (BMI) 33.0 Intake & Output: Intake and Output for Last 24 Hours 11/18/21 11/19/21 11/20/21 23:59 23:59 23:59 Intake Total 888.33 / 888.33 Output Total 100 / 100 50 / 50 Balance 788.33 / 788.33 -50 / -50 Lab / Micro Data Result Diagrams: 11/20/21 05:54 11/20/21 05:54 Labs: Laboratory Results - last 24 hr 11/19/21 13:00: Urine Color Yellow, Urine Clarity Clear, Urine pH 7.0, Ur Specific [place] 1.005, Urine Protein 15 H, Urine Glucose (UA) Normal, Urine Ketones Negative, Urine Occult Blood 10 H, Urine Nitrite Negative, Urine Bilirubin Negative, Urine Urobilinogen Normal, Ur Leukocyte Esterase Negative, Urine RBC 0 SEEN, Urine WBC 0-5 SEEN, Ur Squamous Epith Cells 0-5 SEEN, Urine Bacteria 0 SEEN, Urine Mucus 0 SEEN 11/20/21 05:54: WBC 7.7, RBC 3.53 L, Hgb 11.4 L, Hct 33.8 L, MCV 95.8, MCH 32.3 H, MCHC 33.7, RDW Std Deviation 45.7 H, RDW Coeff of Daphne 13.1, Plt Count 193, MPV 11.3, Immature Gran % (Auto) 0.400, Neut % (Auto) 81.2 H, Lymph % (Auto) 10.0 L, Petroleum % (Auto) 7.9, Eos % (Auto) 0.4, Baso % (Auto) 0.1, Absolute Neuts (auto) 6.2, Absolute Lymphs (auto) 0.77 L, Nucleated RBC % 0 07/21/22 05:54: Sodium 139, Potassium 3.0 L, Chloride 103, Carbon Dioxide 27.0, Anion Gap 9, BUN 15, Creatinine 0.98, Estim Creat Clear Calc 41.66, Est GFR (MDRD) Af Amer 72, Est GFR (MDRD) Non-Af 59 L, BUN/Creatinine Ratio 15.4, Glucose 178 H, Calcium 8.9, Triglycerides 73, Cholesterol 104, LDL Cholesterol 46, VLDL Cholesterol 15, HDL Cholesterol 43 11/20/21 05:54: Phosphorus 3.4, Magnesium 2.0 11/20/21 10:50: Urine Opiates Screen NEGATIVE, Urine Methadone Screen NEGATIVE, Ur Barbiturates Screen NEGATIVE, Ur Phencyclidine Scrn NEGATIVE, Ur Amphetamines Screen NEGATIVE, MDMA (Ecstasy) Screen POSITIVE H, U Benzodiazepines Scrn NEGATIVE, Urine Cocaine Screen NEGATIVE, U Cannabinoids Screen NEGATIVE, Ur Drug Screen Comment Micro: Microbiology 11/19/21 20:20 Nasal Secretion SARS-CoV-2 Antigen (Rapid) - Final Radiography Diagnostic Testing: Radiology Impression Chest X-Ray 11/19/21 12:30 IMPRESSION: No acute abnormality is seen. Electronically Signed: Monico Aquino MD at 12:59 EDT , Brain MRI 11/19/21 14:22 IMPRESSION: Normal unenhanced MRI of the brain. Electronically Signed: Milton Francisco MD at 16:21 EDT , Physical Exam Const alert Constitutional Narrative: Patient talking very fast with flight of ideas, unable to participate in orient ation questions or carry an appriate conversation. HEENT head/scalp atraumatic and moist oral mucous membranes Head and Scalp: normocephalic Eyes conjunctivae normal Neck no lymphadenopathy and supple Resp normal respiratory effort and clear to auscultation bilaterally Cardio regular rate and regular rhythm GI normal to inspection, nondistended, normoactive bowel sounds Extremity normal to inspection Neuro moves all extremities and no focal motor deficits Psych Mood & Affect: anxious Thought Process: flight of ideas Assessment & Plan Assessment/Plan (1) Slurred speech: PLAN: Plan 1. Stuttered speech -rule out TIA/CVA-patient appears manic. Pressured speech, flight of ideas. -Brain CT, head and neck CTA, MRI negative, EEG pending -Crisis evaluated patient and agrees that she is appropriate for psychiatric admission, awaiting final test results for medical clearance -Seroquel increased to 50 mg twice daily -No evidence of metabolic/infectious etiology. -Urine tox screen positive for MDMA however patient is on bupropion so this is likely a false positive. 2. Hypertension -Continue hydrochlorothiazide 3. Gout -on allopurinol. DVT prophylaxis- Lovenox sc This patient was seen by BELEN MurrayC under the supervision of Dr. Santos. 13 minutes spent in clinical coordination of patient's plan of care. Documented by User: Dr. Aurelio Santos MD 11/20/21 14:26 Objective Data Lab / Micro Data Result Diagrams: 11/20/21 05:54 11/20/21 05:54 Assessment & Plan Assessment/Plan (1) Slurred speech: Charges/Coding Addendum Addendum: Dr. Santos I personally examined the patient and reviewed the chart. I agree with the above.? 76-year-old female presents from home with concern for stroke.? Apparently she was on the phone with her daughter when she started stuttering/slurring her speech and then the line went .? Her daughter called EMS who arrived at the house and found her on the ground and the phone was in the sink.? Unfortunate the patient is unable to provide much history as she is having significantly rapid speech and flight of ideas apparently this has been going on for some time according to the daughter.? She was recently started on Wellbutrin, after her in October but I am unsure as to how long she has been having any type of flight of ideas/rapid speech.? Plan will be to start her on Seroquel as she is also not been sleeping very well consistent with some lisa.? We will proceed with stroke rule out and obtain an MRI if possible if this is negative we will consult crisis to evaluate her for psych placement to initiate treatment.? Clinical time spent in all aspects of patient care: 35 minutes 11/20/2021: Still with pressured speech and flight of ideas. Daughter requested neurology despite a normal MRI neurology feels that this is likely primarily psychological. They do recommend an EEG for completeness but otherwise she was evaluated by crisis last night and they do recommend placement in a mental health facility to address these issues. I did increase her Seroquel today from 25 mg p.o. twice daily to 50 mg p.o. twice daily. Clinical time spent in all aspects of patient care: 18 minutes Visit Charges OBSV E&M: 53135 Subsequent observation care L2
--- NOTE | 2021-11-20 16:43 | CASEMGMT ---
RN EMMA NOTE: Intro role of CM to patient and [facility] form explained re: Observation status for treatment of rule-out CVA.? Pt sitting up in bed. Dtr and AIDAN @ bedside. Explained hospitalization will be paid per pt's insurance policy for Outpatient billing?and condition will continue to be evaluated for Inpt necessity. Also let pt and dtr know that [facility] sends paper in the billing packet with their phone number if questions arise. Questions answered. Discussed Pharmacy section of [facility] form and self administered medication guideline.? Pt and dtr verbalize understanding and do not have further questions. ?Form signed, copy made and placed in chart, and original given to pt and dtr. Kade SAXENA RN CM
[2021-11-20] MEDS: Pramipexole Di-HCl 0.5 MG Tablet PO ×2 (17:38→23:30)
[2021-11-20] MEDS: Saliva Substitute 237 ML BOTTLE 15 ML MUCOUS MEM (17:42)
--- NOTE | 2021-11-20 19:12 | NURSING ---
This RN spoke with Anni at crisis conveying that the Dr Santos reviewed the EEG and has medically cleared the patient. Anni requested a faxed copy of the tox screen, covid, SOC report, and EEG report which we have sent. Anni stated she will begin making phone calls and pursue placement.
--- NOTE | 2021-11-20 19:24 | NURSING ---
This nurse spoke to pt and daughter Elizabeth concerning EEG results. Results showed nonspecific changes suggestive of sleep deprivation. Pt has been medically cleared and crisis will see pt. Daughter expressed concern about pt being seen by PT/OT. Explained that PT/OT did not feel they had anything to offer pt.
[2021-11-20] MEDS: Atorvastatin Calcium 80 MG Tablet PO (23:29)
[2021-11-20] MEDS: QUEtiapine 25 MG Tablet 50 MG PO (23:30)
[2021-11-20] MEDS: Gabapentin 600 MG Tablet PO (23:30)
[2021-11-21] MEDS: Acetaminophen 325 MG Tablet 650 MG PO ×2 (00:37→10:29)
[2021-11-21 02:59] VITALS: PULSE 76
[2021-11-21 04:03] VITALS: BMI 33.0
[2021-11-21 05:14] VITALS: BP 123/58; PULSE 75; RESP 18; TEMP 36.4; O2SAT 98
[2021-11-21] MEDS: Acyclovir 200 MG Capsule 400 MG PO ×2 (05:22→08:37)
[2021-11-21] MEDS: Enoxaparin 40 MG/0.4 ML Syringe SC (05:23)
[2021-11-21 06:59] VITALS: PULSE 66
[2021-11-21 07:37] VITALS: O2SAT 95
[2021-11-21] MEDS: QUEtiapine 25 MG Tablet 50 MG PO (08:36)
[2021-11-21] MEDS: Aspirin 81 MG TAB.CHEW PO (08:36)
[2021-11-21] MEDS: Loratadine 10 MG Tablet PO (08:36)
[2021-11-21] MEDS: hydroCHLOROthiazide 12.5mg 12.5 MG PO (08:36)
[2021-11-21] MEDS: Folic Acid 1 MG Tablet PO (08:36)
[2021-11-21] MEDS: Cyanocobalamin 500 MCG Tablet PO (08:36)
[2021-11-21] MEDS: Allopurinol 300 MG Tablet PO (08:36)
[2021-11-21] MEDS: Docusate Sodium 100 MG Capsule PO (08:39)
[2021-11-21] MEDS: Lidocaine 5% Patch 1 PATCH TOPICAL (08:39)
[2021-11-21 09:05] LABS: Anion Gap 4 (5-15); BUN 18 mg/dL (7-18); BUN/Creat Ratio 20.5 RATIO (10-20); Chloride 106 mmol/L (98-107); Creatinine, Serum 0.88 mg/dL (0.55-1.02); EST Glomerular Filtration Rate 67 mL/min (>60); Est Glom Filt Rate - Afr Amer 81 mL/min (>60); Glucose 129 mg/dL (74-106); Potassium 3.7 mmol/L (3.5-5.1); Sodium Level 139 mmol/L (136-145)
--- NOTE | 2021-11-21 10:17 | DCINST_ITS ---
Discharge Instructions Diet Discharge Diet: Low fat / Low cholesterol Activity Discharge Activity: Return to Normal Activity Dressing / Incision Call your doctor if you observe: Numbness or Tingling and Fainting spells Follow Up Care Test Results: Test results from this visit will be discussed in further detail at your follow- up appointment, if applicable. Discharge Plan Admission Admit Date/Time: 11/19/21 11:58 Primary Reason for Your Visit: Slurred speech, Flight of ideas Attending Provider: Aurleio Santos Primary Care Provider: Sudha Adler Discharge Orders/Prescriptions Prescriptions: New acetaminophen [Tylenol] 325 mg Tablet 650 mg PO Q6H PRN PRN (Reason: Pain Score 1-10) Qty: 0 0RF aspirin 81 mg Tablet,Chewable 81 mg PO BREAKFAST Qty: 0 0RF acyclovir 200 mg Capsule 400 mg PO 5X/DAY Qty: 0 0RF atorvastatin 80 mg Tablet 80 mg PO QHS Qty: 0 0RF cyanocobalamin (vitamin B-12) 500 mcg Tablet 500 mcg PO BREAKFAST Qty: 0 0RF folic acid 1 mg Tablet 1 mg PO BREAKFAST Qty: 0 0RF quetiapine 25 mg Tablet 50 mg PO BID Qty: 0 0RF pramipexole 0.5 mg Tablet 0.5 mg PO 1700,2200 Qty: 0 0RF Biotene Dry Mouth Oral Rinse Mouthwash 15 ml mucous membrane 5X/DAY PRN (Reason: Dry Mouth) Qty: 0 0RF Continued hydrochlorothiazide 25 MG tablet 12.5 mg PO DAILY loratadine [Allergy Relief (loratadine)] 10 MG tablet 10 mg PO DAILY cholecalciferol (vitamin D3) [Vitamin D3] 1,000 UNIT tablet 2,000 unit PO DAILY Gralise 600 MG tablet extended release 24 hr 600 mg PO DAILY allopurinol 300 mg tablet 1 tab PO DAILY vitamin B88-ulcce acid 0.5-1 mg Tablet 1 tab PO DAILY Discontinued Valacyclovir Hcl [Valtrex] 1,000 MG tablet 1,000 mg PO DAILY bupropion HCl 150 mg tablet extended release 24 hr 1 tab PO DAILY pramipexole 0.5 mg tablet 0.5 mg PO BID Rx Instructions: one at 5PM and one at 10PM Referrals / Follow Up: Sudha Adler MD [Primary Care Provider] - Disposition Disposition (needs filled in before D/C Order can be placed): [facility]
--- NOTE | 2021-11-21 10:23 | PCM.DC.SUM ---
Documented by User: TATI Murray 11/21/21 10:34 Providers Date of Admission: 11/19/21 Date of Discharge: 11/21/21 Primary Care Physician: Dr. Sudha Adler MD Reason For Visit: TIA, FALL Diagnosis Discharge Diagnosis (1) Slurred speech: Status: Acute Code(s): R47.81 - Slurred speech Plan 1. Stuttered speech -rule out TIA/CVA-patient appears manic. Pressured speech, flight of ideas. -Brain CT, head and neck CTA, MRI negative, EEG pending -Crisis evaluated patient and agrees that she is appropriate for psychiatric admission, awaiting final test results for medical clearance -Seroquel increased to 50 mg twice daily -No evidence of metabolic/infectious etiology. -Urine tox screen positive for MDMA however patient is on bupropion so this is likely a false positive. 2. Hypertension -Continue hydrochlorothiazide 3. Gout -on allopurinol. DVT prophylaxis- Lovenox sc This patient was seen by TATI Murray under the supervision of Dr. Santos. 13 minutes spent in clinical coordination of patient's plan of care. Medications at Discharge Home Medications cholecalciferol (vitamin D3) 25 mcg (1,000 unit) tablet (Vitamin D3) 2,000 unit PO DAILY 05/28/14 gabapentin 600 mg tablet,extended release 24 hr (Gralise) 600 mg PO DAILY 05/28/14 hydrochlorothiazide 25 mg tablet 12.5 mg PO DAILY 05/28/14 loratadine 10 mg tablet (Allergy Relief (loratadine)) 10 mg PO DAILY 05/28/14 allopurinol 300 mg tablet 1 tab PO DAILY 11/19/21 vitamin B12 0.5 mg-folic acid 1 mg tablet 1 tab PO DAILY supplement 11/19/21 acetaminophen 325 mg tablet (Tylenol) 650 mg PO Q6H PRN PRN Pain Score 1-10 #0 tabs 11/21/21 acyclovir 200 mg capsule 400 mg PO 5X/DAY #0 caps 11/21/21 aspirin 81 mg chewable tablet 81 mg PO BREAKFAST #0 tabs 11/21/21 atorvastatin 80 mg tablet 80 mg PO QHS #0 tabs 11/21/21 cyanocobalamin (vitamin B-12) 500 mcg tablet 500 mcg PO BREAKFAST #0 tabs 11/21/21 folic acid 1 mg tablet 1 mg PO BREAKFAST #0 tabs 11/21/21 pramipexole 0.5 mg tablet 0.5 mg PO 1700,2200 #0 tabs 11/21/21 quetiapine 25 mg tablet 50 mg PO BID #0 tabs 11/21/21 saliva substitute combo no.9 (Biotene Dry Mouth Oral Rinse mouthwash) 15 ml mucous membrane 5X/DAY PRN Dry Mouth #0 mL 11/21/21 Hospital Course Procedures 2-D Echocardiogram Summary of Care Provided Minutes Spent on Discharge: 35 Hospital Course: Patient is a 76-year-old female who was admitted on 11/19/2021 with complaints of slurred speech and flight of ideas. During initial evaluation patient was noted to be manic and behaviors and was at times yelling random things in the ER. Patient had been started on Wellbutrin on 11/06/2021 for suspected depression. Family was concerned for stroke and a brain CT, head/neck CTA, brain MRI, and EEG were performed which were all negative. Echocardiogram was also done at the request of patient's daughter who is a hospitalist at another facility and demonstrated an EF of 60%. Patient was evaluated by teleneurology who reviewed all imaging and subsequently stated that this may be psychiatric in nature. Patient's daughter refused transfer to psychiatric facility stating that this is not a psychiatric issue and is neurologic in nature. Discussed with daughter at length that we do not have inpatient neurology here and patient will need transferred for further neurology work-up since this is what the daughter wanted. Patient transferred to [facility] in [place] at patient's daughter's request since this is the facility at which she works. Report given to Dr. Jensen of the hospital service at [facility] who was excepting of the patient. Weight / BMI Weight Weight: 186 lb 4.65 oz Body Mass Index (BMI) 33.0 ABG / Lab / Microbiology Data Result Diagrams: 11/20/21 05:54 11/21/21 08:30 Laboratory: Laboratory Results - last 24 hr 11/20/21 10:50: Urine Opiates Screen NEGATIVE, Urine Methadone Screen NEGATIVE, Ur Barbiturates Screen NEGATIVE, Ur Phencyclidine Scrn NEGATIVE, Ur Amphetamines Screen NEGATIVE, MDMA (Ecstasy) Screen POSITIVE H, U Benzodiazepines Scrn NEGATIVE, Urine Cocaine Screen NEGATIVE, U Cannabinoids Screen NEGATIVE, Ur Drug Screen Comment 11/21/21 08:30: Sodium 139, Potassium 3.7, Chloride 106, Carbon Dioxide 29.0, Anion Gap 4 L, BUN 18, Creatinine 0.88, Estim Creat Clear Calc 46.40, Est GFR (MDRD) Af Amer 81, Est GFR (MDRD) Non-Af 67, BUN/Creatinine Ratio 20.5 H, Glucose 129 H, Calcium 9.0 Microbiology: Microbiology 11/19/21 20:20 Nasal Secretion SARS-CoV-2 Antigen (Rapid) - Final Radiography Diagnostic Testing: Radiology Impression Echocardiogram 11/19/21 16:00 Interpretation Summary Normal LV size. Left ventricular systolic function is normal. The estimated ejection fraction is 60 %. Bubble contrast study negative for right to left interatrial shunt. Pulmonary artery systolic pressure is 36 mmHg. Stage 1 diastolic dysfunction. Contrast injection was performed. Ordering Physician: Aurelio Santos Referring Physician: SUDHA ADLER Performed By: Antonette Dixon RDCS D/C Instructions Discharge Diet: Low fat / Low cholesterol Call your doctor if you observe: Numbness or Tingling and Fainting spells Meaningful Use Info Meaningful Use Diagnoses (Choose all that apply): None applicable Discharge Plan Admission Admit Date/Time: 11/19/21 11:58 Primary Reason for Your Visit: Slurred speech, Flight of ideas Attending Provider: Aurelio Santos Primary Care Provider: Sudha Adler Discharge Orders/Prescriptions Prescriptions: New acetaminophen [Tylenol] 325 mg Tablet 650 mg PO Q6H PRN PRN (Reason: Pain Score 1-10) Qty: 0 0RF aspirin 81 mg Tablet,Chewable 81 mg PO BREAKFAST Qty: 0 0RF acyclovir 200 mg Capsule 400 mg PO 5X/DAY Qty: 0 0RF atorvastatin 80 mg Tablet 80 mg PO QHS Qty: 0 0RF cyanocobalamin (vitamin B-12) 500 mcg Tablet 500 mcg PO BREAKFAST Qty: 0 0RF folic acid 1 mg Tablet 1 mg PO BREAKFAST Qty: 0 0RF quetiapine 25 mg Tablet 50 mg PO BID Qty: 0 0RF pramipexole 0.5 mg Tablet 0.5 mg PO 1700,2200 Qty: 0 0RF Biotene Dry Mouth Oral Rinse Mouthwash 15 ml mucous membrane 5X/DAY PRN (Reason: Dry Mouth) Qty: 0 0RF Continued hydrochlorothiazide 25 MG tablet 12.5 mg PO DAILY loratadine [Allergy Relief (loratadine)] 10 MG tablet 10 mg PO DAILY cholecalciferol (vitamin D3) [Vitamin D3] 1,000 UNIT tablet 2,000 unit PO DAILY Gralise 600 MG tablet extended release 24 hr 600 mg PO DAILY allopurinol 300 mg tablet 1 tab PO DAILY vitamin V97-slmmf acid 0.5-1 mg Tablet 1 tab PO DAILY Discontinued Valacyclovir Hcl [Valtrex] 1,000 MG tablet 1,000 mg PO DAILY bupropion HCl 150 mg tablet extended release 24 hr 1 tab PO DAILY pramipexole 0.5 mg tablet 0.5 mg PO BID Rx Instructions: one at 5PM and one at 10PM Referrals / Follow Up: Sudha Adler MD [Primary Care Provider] - Disposition Disposition (needs filled in before D/C Order can be placed): [facility] Documented by User: Dr. Aurelio Santos MD 11/21/21 11:48 Providers Date of Admission: 11/19/21 Reason For Visit: TIA, FALL Diagnosis Discharge Diagnosis (1) Slurred speech: Status: Acute Code(s): R47.81 - Slurred speech Medications at Discharge Home Medications cholecalciferol (vitamin D3) 25 mcg (1,000 unit) tablet (Vitamin D3) 2,000 unit PO DAILY 05/28/14 gabapentin 600 mg tablet,extended release 24 hr (Gralise) 600 mg PO DAILY 05/28/14 hydrochlorothiazide 25 mg tablet 12.5 mg PO DAILY 05/28/14 loratadine 10 mg tablet (Allergy Relief (loratadine)) 10 mg PO DAILY 05/28/14 allopurinol 300 mg tablet 1 tab PO DAILY 11/19/21 vitamin B12 0.5 mg-folic acid 1 mg tablet 1 tab PO DAILY supplement 11/19/21 acetaminophen 325 mg tablet (Tylenol) 650 mg PO Q6H PRN PRN Pain Score 1-10 #0 tabs 11/21/21 acyclovir 200 mg capsule 400 mg PO 5X/DAY #0 caps 11/21/21 aspirin 81 mg chewable tablet 81 mg PO BREAKFAST #0 tabs 11/21/21 atorvastatin 80 mg tablet 80 mg PO QHS #0 tabs 11/21/21 cyanocobalamin (vitamin B-12) 500 mcg tablet 500 mcg PO BREAKFAST #0 tabs 11/21/21 folic acid 1 mg tablet 1 mg PO BREAKFAST #0 tabs 11/21/21 pramipexole 0.5 mg tablet 0.5 mg PO 1700,2200 #0 tabs 11/21/21 quetiapine 25 mg tablet 50 mg PO BID #0 tabs 11/21/21 saliva substitute combo no.9 (Biotene Dry Mouth Oral Rinse mouthwash) 15 ml mucous membrane 5X/DAY PRN Dry Mouth #0 mL 11/21/21 ABG / Lab / Microbiology Data Result Diagrams: 11/20/21 05:54 11/21/21 08:30 Discharge Plan Admission Admit Date/Time: 11/19/21 11:58 Primary Reason for Your Visit: Slurred speech, Flight of ideas Attending Provider: Aurelio Santos Primary Care Provider: Sudha Adler Discharge Orders/Prescriptions Prescriptions: New acetaminophen [Tylenol] 325 mg Tablet 650 mg PO Q6H PRN PRN (Reason: Pain Score 1-10) Qty: 0 0RF aspirin 81 mg Tablet,Chewable 81 mg PO BREAKFAST Qty: 0 0RF acyclovir 200 mg Capsule 400 mg PO 5X/DAY Qty: 0 0RF atorvastatin 80 mg Tablet 80 mg PO QHS Qty: 0 0RF cyanocobalamin (vitamin B-12) 500 mcg Tablet 500 mcg PO BREAKFAST Qty: 0 0RF folic acid 1 mg Tablet 1 mg PO BREAKFAST Qty: 0 0RF quetiapine 25 mg Tablet 50 mg PO BID Qty: 0 0RF pramipexole 0.5 mg Tablet 0.5 mg PO 1700,2200 Qty: 0 0RF Biotene Dry Mouth Oral Rinse Mouthwash 15 ml mucous membrane 5X/DAY PRN (Reason: Dry Mouth) Qty: 0 0RF Continued hydrochlorothiazide 25 MG tablet 12.5 mg PO DAILY loratadine [Allergy Relief (loratadine)] 10 MG tablet 10 mg PO DAILY cholecalciferol (vitamin D3) [Vitamin D3] 1,000 UNIT tablet 2,000 unit PO DAILY Gralise 600 MG tablet extended release 24 hr 600 mg PO DAILY allopurinol 300 mg tablet 1 tab PO DAILY vitamin N56-pmwex acid 0.5-1 mg Tablet 1 tab PO DAILY Discontinued Valacyclovir Hcl [Valtrex] 1,000 MG tablet 1,000 mg PO DAILY bupropion HCl 150 mg tablet extended release 24 hr 1 tab PO DAILY pramipexole 0.5 mg tablet 0.5 mg PO BID Rx Instructions: one at 5PM and one at 10PM Referrals / Follow Up: Sudha Adler MD [Primary Care Provider] - Disposition Disposition (needs filled in before D/C Order can be placed): [facility] Charges/Coding Addendum Addendum: Dr. Santos I personally examined the patient and reviewed the chart. I agree with the above.? 76-year-old female presents from home with concern for stroke.? Apparently she was on the phone with her daughter when she started stuttering/slurring her speech and then the line went .? Her daughter called EMS who arrived at the house and found her on the ground and the phone was in the sink.? Unfortunate the patient is unable to provide much history as she is having significantly rapid speech and flight of ideas apparently this has been going on for some time according to the daughter.? She was recently started on Wellbutrin, after her in October but I am unsure as to how long she has been having any type of flight of ideas/rapid speech.? Plan will be to start her on Seroquel as she is also not been sleeping very well consistent with some lisa.? We will proceed with stroke rule out and obtain an MRI if possible if this is negative we will consult crisis to evaluate her for psych placement to initiate treatment.? Clinical time spent in all aspects of patient care: 35 minutes 11/20/2021:?Still with pressured speech and flight of ideas.? Daughter requested neurology despite a normal MRI neurology feels that this is likely primarily psychological.? They do recommend an EEG for completeness but otherwise she was evaluated by crisis last night and they do recommend placement in a mental health facility to address these issues.? I did increase her Seroquel today from 25 mg p.o. twice daily to 50 mg p.o. twice daily.? Clinical time spent in all aspects of patient care: 18 minutes 11/21/2021: Doing much better today, can actually finally have a conversation with her. She was still little bit tangential at times but her rate of speech was much improved. She feels much better with the Seroquel and having gotten some sleep finally. Based on all the neurological work-up, unremarkable EEG, normal MRI, normal CT scan as well as neurological consultation which did not feel that there is a primary neurological issue, this does seem that this was an issue with possibly bipolar disorder as she became severely manic when she started Wellbutrin. The Wellbutrin was discontinued and the Seroquel has assisted with her sleep. She denies any headaches, blurry vision, fevers, nuchal rigidity, and she does not have leukocytosis. However, daughter who is a hospitalist at an institution in [place] felt that her issues were still neurological despite all of the evidence of the contrary and despite the fact that she had improvement simply with sleep, holding the Wellbutrin, and adding Seroquel. She was able to arrange admission to her home institution so Mrs. Campuzano was discharged to a tertiary care facility to undergo potentially further neurological testing. Clinical time spent on all aspects of patient care including discharge planning is 50 minutes with more than half that time spent by myself Visit Charges OBSV E&M: [id number] Observation care discharge
[2021-11-21 10:27] VITALS: BP 141/64; PULSE 91; RESP 18; TEMP 36.5; O2SAT 99
== END 2021-11-21 10:23 | disposition short-term general hospital (02) ==
LOC: ED 11:46 → PCU 11:59
PROVIDERS: Hospitalist; Admitting Provider Family Medicine; Emergency Provider Emergency Medicine; PCP Family Medicine; Visit Provider Family Medicine
DX: R47.81 Slurred speech (principal); M10.9 Gout, unspecified; I10 Essential (primary) hypertension; Z79.899 Other long term (current) drug therapy; R29.700 NIHSS score 0; G93.40 Encephalopathy, unspecified
CPT/HCPCS: 36415; 70450; 70496; 70498; 70551; 71045; 80048; 80061; 80307; 81001; 83735; 84100; 84484; 85025; 85610; 85730; 87811; 92610; 93005; 93306; 94762; 95819; 96360; 96361; 96372; 97802; 99218; 99285; Q9957; Q9967; A4216; C8929; G0378

== ENCOUNTER → 2021-12-25 | Outpatient (CLI) | payer MEDICARE, SELFPAY | END | disposition home or self-care (01) | LOC: PSN 09:32 | PROVIDERS: PCP Family Medicine; Referring Provider Internal Medicine Cardiovascular Disease; Visit Provider Internal Medicine Cardiovascular Disease | DX: I10 Essential (primary) hypertension (principal); R00.1 Bradycardia, unspecified | CPT/HCPCS: 93225; 93226 ==

== ENCOUNTER 2022-01-29 20:55 | Inpatient (IN) | payer MEDICARE, SELFPAY ==
[2022-01-29 21:37] VITALS: PULSE 100; RESP 18; O2SAT 99; BMI 32.7
[2022-01-29 22:05] VITALS: BP 169/90; PULSE 100; RESP 18; O2SAT 99
[2022-01-30 00:23] VITALS: BP 157/78; PULSE 81
[2022-01-30] MEDS: Pramipexole Di-HCl 0.5 MG Tablet PO ×3 (02:17→22:02)
[2022-01-30] MEDS: Gabapentin 600 MG Tablet PO (05:19)
[2022-01-30] MEDS: Acyclovir 200 MG Capsule 400 MG PO ×2 (05:19→17:18)
[2022-01-30] MEDS: Loratadine 10 MG Tablet PO (05:20)
[2022-01-30] MEDS: Senna Tablet 1 TABLET PO (05:20)
[2022-01-30] MEDS: Allopurinol 300 MG Tablet PO (05:20)
[2022-01-30] MEDS: Multivitamin (Healthy Eyes) Capsule 1 CAP PO (05:20)
[2022-01-30] MEDS: Cholecalciferol (VIT D3) 25 MCG TABLET (1,000 UNITS) PO (05:20)
[2022-01-30] MEDS: Lisinopril 10 MG Tablet PO (05:20)
[2022-01-30] MEDS: Lacosamide 100 MG Tablet 150 MG PO ×2 (05:23→17:20)
[2022-01-30 05:45] LABS: Absolute Lymphocyte Count 1.71 X10^3/uL (0.83-4.51); Absolute Neutrophil Count 3.5 X10^3/uL (2.0-7.7); Basophil# 0.02 X10^3/uL; Basophil% 0.3 % (0-1); Eosinophil# 0.11 X10^3/uL; Eosinophils% 1.9 % (0-5); Hematocrit 33.5 % (37-47); Hemoglobin 11.3 g/dL (12.0-15.0); Lymphocyte # 1.71 X10^3/ul (0.83-4.51); Lymphocyte % 29.7 % (19-41); Mean Corp Hgb Conc 33.7 g/dL (32-36); Mean Corpuscular Hgb 32.5 pg (27.0-32.0); Mean Corpuscular Volume 96.3 fL (81-99); Mean Platelet Vol. 9.6 fl (6.2-12.0); Monocyte# 0.45 X10^3/uL; Monocyte% 7.8 % (0-10); NRBC Flagged by Analyzer 0 % (0-5); Neutrophil # 3.45 X10^3/uL (2.7-7.7); Platelet Count 188 K/mm3 (150-450); RBC Distribution Width CV 13.7 % (11.6-14.6); RBC Distribution Width SD 48.1 fl (35.1-43.9); Red Blood Count 3.48 M/mm3 (4.2-5.4); White Blood Count 5.8 K/mm3 (4.4-11.0)
[2022-01-30 06:09] LABS: Anion Gap 8 (5-15); BUN 18 mg/dL (7-18); BUN/Creat Ratio 22.3 RATIO (10-20); Calcium,Total 9.3 mg/dL (8.5-10.1); Chloride 101 mmol/L (98-107); Creatinine, Serum 0.81 mg/dL (0.55-1.02); EST Glomerular Filtration Rate 74 mL/min (>60); Est Glom Filt Rate - Afr Amer 89 mL/min (>60); Estimated Creatinine Clearance 50.41 ml/min; Glucose 107 mg/dL (74-106); Potassium 3.8 mmol/L (3.5-5.1); Sodium Level 138 mmol/L (136-145)
--- NOTE | 2022-01-30 08:02 | HP.PCM_ITS ---
[facility] - General General Date of Admission: 01/29/22 Date of Service: 01/30/22 Chief Complaint: Here for rehab. [facility] Narrative JASEN ANDERSEN, is a 76 Female with below past medical history who presents with followin01/21/2022 Admit to [facility] with seizures. Recent hospitalization for new onset seizure, treated with Trileptal. 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 Vimpat 100mg twice daily for seizures. Depakote intolerable due to weight gain, sedation. Sodium improved with hypertonic saline, stopping Trileptal. Video EEG for seizures, 2 seizures noted. Admission complicated by manic/behavioral changes, urinary retention, breakthrough left temporal seizures. MRI brain negative, PET as outpatient. Patient sees Dr. Duran for breast cancer treated surgically in 2014. Evaluation for new onset seizure etiology inconclusive. 01/29/2022 Admit to TCU with debility, here for rehabilitation, strengthening, prior to discharge home alone. [facility] Medical History (Updated 01/30/22 @ 08:[address] Emil Smiley MD) Anxiety Bradycardia Depression Epilepsy Essential hypertension Gout History of breast cancer HSV-1 infection Latisha RLS (restless legs syndrome) Slurred speech Home Medications allopurinol 300 mg tablet 1 tab PO DAILY Gout 11/19/21 [History Last Taken Unknown] acyclovir 200 mg capsule 400 mg PO 5X/DAY #0 caps 11/21/21 [Rx Last Taken Unknown] cyanocobalamin (vitamin B-12) 500 mcg tablet 500 mcg PO BREAKFAST #0 tabs 11/21/21 [Rx Last Taken Unknown] biotin 1 mg capsule 1 mg PO DAILY Check with primary doctor 12/17/21 [History Last Taken Unknown] cholecalciferol (vitamin D3) 25 mcg (1,000 unit) tablet (Vitamin D3) 1,000 unit PO DAILY Vitamin D deficiency 12/17/21 [History Last Taken Unknown] cranberry extract 425 mg capsule 425 mg PO DAILY 12/17/21 [History Last Taken Unknown] divalproex 500 mg tablet,extended release 24 hr 1,500 mg PO DAILY 12/17/21 [History Last Taken Unknown] folic acid 800 mcg tablet 1,000 mg PO DAILY Supplement 12/17/21 [History Last Taken Unknown] gabapentin 600 mg tablet 600 mg PO DAILY Check with primary doctor 12/17/21 [History Last Taken Unknown] lisinopril 10 mg tablet 10 mg PO DAILY Blood pressure 12/17/21 [History Last Taken Unknown] meloxicam 7.5 mg tablet 7.5 mg PO DAILY Check with primary doctor 12/17/21 [History Last Taken Unknown] sennosides 8.6 mg capsule (senna) 8.6 mg PO DAILY Constipation 12/17/21 [History Last Taken Unknown] docusate sodium 250 mg PO/SL DAILY Constipation 01/29/22 [History Last Taken Unknown] lacosamide 150 mg PO/SL BID Check with primary doctor 01/29/22 [History Last Taken 01/29/22 08:05] loratadine 10 mg tablet 10 mg PO DAILY Seasonal Allergies 01/29/22 [History Last Taken Unknown] ovimejfx-cve-cwdruk 5 mg-zeaxanth 1 mg-bilberry 7.5 mg-herbal capsule ([employer] Formula) 1 cap PO DAILY Supplement 01/29/22 [History Last Taken Unknown] pramipexole 0.5 mg tablet 0.5 mg PO 1700,2200 Check with primary doctor 01/29/22 [History Last Taken Unknown] valacyclovir 1 gram tablet 1,000 mg Check with primary doctor 01/29/22 [History Last Taken Unknown] Allergy/AdvReac Type Severity Reaction Status Date / Time hydrocodone AdvReac Nausea/Vom/ Verified 12/17/21 15:00 Diarrhea propoxyphene HCl AdvReac Other Verified 12/17/21 15:00 [From [facility]] Family History (Updated 01/30/22 @ 08:[address] Emil Smiley MD) Father Heart disease Mother Heart disease Osteoporosis Sister Cancer Sister Heart disease Sister Myasthenia Surgical History (Updated 01/30/22 @ 08:[address] Emil Smiley MD) History of esophagogastroduodenoscopy (EGD) (02/2020) History of left knee replacement (10/16/08) History of lumpectomy of right breast (05/2014) History of right knee joint replacement (02/05/09) History of shoulder surgery (~10/20/11) History of tubal ligation Social History (Updated 01/30/22 @ 08:[address] Emil Smiley MD) household members: none Smoking Status: Never smoker alcohol intake: current details: occasional substance use type: does not use ROS Constitutional Constitutional: Denies chills, fever(s) or weight gain ENT HEENT: Denies headache(s), nasal congestion or nasal discharge Cardiovascular Cardiovascular: Denies chest pain or palpitations Respiratory/Chest Respiratory/Chest: Denies cough, excessive phlegm production or shortness of breath with exertion Gastrointestinal Gastrointestinal: Denies abdominal pain, nausea or vomiting Genitourinary Genitourinary: Denies dysuria Musculoskeletal Musculoskeletal: Denies joint pain or joint swelling Integumentary Integumentary: Denies rash or wounds Neurologic Neurologic: Denies focal weakness, numbness or tingling Psychiatric Psychiatric: Denies anxiety, auditory hallucinations, depression, homicidal ideation or suicidal ideation Vital Signs Vital Signs Vital Signs: 01/29/22 22:05 01/30/22 00:23 01/29/22 21:37 Pulse Rate 100 81 100 Pulse Rhythm Regular Pulse Strength Normal (2+) Respiratory Rate 18 18 Respiratory Effort Normal Non-Labored Respiratory Depth Normal Respiratory Pattern Normal Blood Pressure 169/90 H 157/78 H Blood Pressure Mean 116 104 Blood Pressure Source Monitor Monitor Blood Pressure Position Sitting Sitting Blood Pressure Location Left Arm Left Arm Pulse Ox 99 99 Oxygen Delivery Method Room Air Room Air Weight Weight: 85.049 kg Body Mass Index (BMI) 32.7 Physical Exam Const alert General Appearance: cooperative HEENT normocephalic Eyes PERRL and EOMs intact bilaterally Neck supple, no JVD and no carotid bruits Resp normal respiratory effort, normal air movement and clear to auscultation bilaterally Cardio regular rate and regular rhythm GI normal to inspection, nondistended, normoactive bowel sounds, non-tender and non-distended Extremity normal capillary refill General Extremity: Negative for edema Skin no rashes or lesions noted General Skin Exam: no breakdown Psych affect normal Appearance: appropriate Results Lab / Micro Data Result Diagrams: 01/30/22 05:26 01/30/22 05:26 Labs: Laboratory Results - last 24 hr 01/30/22 05:26: WBC 5.8, RBC 3.48 L, Hgb 11.3 L, Hct 33.5 L, MCV 96.3, MCH 32.5 H, MCHC 33.7, RDW Std Deviation 48.1 H, RDW Coeff of Daphne 13.7, Plt Count 188, MPV 9.6, Immature Gran % (Auto) 0.300, Neut % (Auto) 60.0, Lymph % (Auto) 29.7, [place] % (Auto) 7.8, Eos % (Auto) 1.9, Baso % (Auto) 0.3, Absolute Neuts (auto) 3.5, Absolute Lymphs (auto) 1.71, Nucleated RBC % 0 01/30/22 05:26: Sodium 138, Potassium 3.8, Chloride 101, Carbon Dioxide 29.0, Anion Gap 8, BUN 18, Creatinine 0.81, Estim Creat Clear Calc 50.41, Est GFR (MDRD) Af Amer 89, Est GFR (MDRD) Non-Af 74, BUN/Creatinine Ratio 22.3 H, Glucose 107 H, Calcium 9.3 Micro: Microbiology 01/30/22 00:11 Nasal Secretion SARS-CoV-2 Antigen (Rapid) - Final Assessment & Plan Assessment/Plan (1) Debility: (2) Epilepsy: (3) Latisha: (4) Hyponatremia: (5) Urinary retention: (6) Vitamin D deficiency: (7) Hypertension: (8) Allergic rhinitis: (9) Herpes simplex: (10) Gout: (11) Depression: (12) History of breast cancer: (13) Restless leg syndrome: (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 * Debility - PT/OT. * Pain - Tylenol 1000mg q6h prn pain (1-10). * Bowel - Senna/colace 1 tablet bid. * Adult immunization - Administer pneumonia vaccine, covid19 vaccine, flu vaccine as appropriate. * DVT prophylaxis - Hold, not necessary. * Cold sores - Acyclovir 400mg bid. * Gout - Allopurinol 300mg daily. * Folate deficiency - Folic acid 1mg daily. * Restless Leg syndrome - Gabapentin 600mg daily, Mirapex 0.5mg bid. * Seizure disorder - Vimpat 150mg bid. * Hypertension - Lisinopril 10mg daily. * Allergic rhinitis - Loratadine 10mg daily. * Osteoarthritis - Meloxicam 7.5mg daily. * Macular degeneration - Healthy Eyes 1 tablet daily. * Vitamin D deficiency - D3 25mcg daily.
[2022-01-30] MEDS: Folic Acid 1 MG Tablet PO (08:09)
[2022-01-30] MEDS: Meloxicam 7.5 MG Tablet PO (08:09)
[2022-01-30] MEDS: Tuberculin,Purif.prot.deriv. 50 TU/ML Vial 0.1 ML ID (10:57)
--- NOTE | 2022-01-30 15:41 | PCM.PN.DRR ---
TCU RX Drug Regimen Review Subjective: TCU Admission. 76 YOF admitted to [facility] with seizures. Admission complicated by manic/behavioral changes, hyponatremia, urinary retention. Admitted to TCU with debility for strengthening and rehabilitation. Objective: Allergies hydrocodone Adverse Reaction (Verified 12/17/21 15:00) Nausea/Vom/Diarrhea propoxyphene HCl [From Darvon] Adverse Reaction (Verified 12/17/21 15:00) Other Current Medications Generic Name Dose Route Start Last Admin Trade Name Freq PRN Reason Stop Dose Admin Acetaminophen 1,000 mg 01/30/22 08:23 Acetaminophen 500 Mg Tablet PO Q6H PRN PRN Pain Score 1-10 Acyclovir 400 mg 01/30/22 06:00 01/30/22 05:19 Acyclovir 200 Mg Capsule PO 400 mg BID FELISHA Administration Allopurinol 300 mg 01/30/22 06:00 01/30/22 05:20 Allopurinol 300 Mg Tablet PO 300 mg DAILY FELISHA Administration Cholecalciferol 25 mcg 01/30/22 06:00 01/30/22 05:20 Cholecalciferol (Vit D3) 25 Mcg Tablet (1,000 Units) PO 25 mcg DAILY FELISHA Administration Cyanocobalamin 500 mcg 01/31/22 08:00 Cyanocobalamin 500 Mcg Tablet PO BREAKFAST FELISHA Folic Acid 1 mg 01/30/22 08:00 01/30/22 08:09 Folic Acid 1 Mg Tablet PO 1 mg BREAKFAST FELISHA Administration Gabapentin 600 mg 01/30/22 06:00 01/30/22 05:19 Gabapentin 600 Mg Tablet PO 600 mg DAILY FELISHA Administration Influenza Virus Vaccine Quadrival 0.5 ml 01/31/22 10:00 Flu Vacc [id number](6mos Up)/Pf 60 Mcg/0.5 Ml Syringe IM 01/31/22 10:01 .ONCE ONE Lacosamide 150 mg 01/30/22 06:00 01/30/22 05:23 Lacosamide 100 Mg Tablet PO 150 mg BID FELISHA Administration Lisinopril 10 mg 01/30/22 06:00 01/30/22 05:20 Lisinopril 10 Mg Tablet PO 10 mg DAILY FELISHA Administration Loratadine 10 mg 01/30/22 06:00 01/30/22 05:20 Loratadine 10 Mg Tablet PO 10 mg DAILY FELISHA Administration Meloxicam 7.5 mg 01/30/22 06:00 01/30/22 08:09 Meloxicam 7.5 Mg Tablet PO 7.5 mg DAILY FELISHA Administration Multivitamins/Minerals 1 cap 01/30/22 06:00 01/30/22 05:20 Multivitamin (Healthy Eyes) Capsule PO 1 cap DAILY FELISHA Administration Polyethylene Glycol 17 gm 01/30/22 13:00 01/30/22 14:04 Polyethylene Glycol 3350 17 Gm Packet PO Not Given DAILY FELISHA Pramipexole Dihydrochloride 0.5 mg 01/30/22 14:00 01/30/22 14:04 Pramipexole Di-Hcl 0.5 Mg Tablet PO 0.5 mg 1400,2200 FELISHA Administration Senna/Docusate Sodium 1 tablet 01/30/22 18:00 Senna/Docusate Sodium 1 Tablet PO BID FELISHA Tuberculin PPD 0.1 ml 02/06/22 10:00 Tuberculin,Purif.Prot.Deriv. 50 Tu/Ml Vial ID 02/06/22 10:01 X1 ONE Problem List (Last Reviewed 01/30/22 @ 08:[address] Emil Smiley MD) Monoclonal gammopathy of undetermined significance (Acute) Restless leg syndrome (Acute) History of breast cancer (Acute) Depression (Acute) Gout (Acute) Herpes simplex (Acute) Allergic rhinitis (Acute) Hypertension (Chronic) Vitamin D deficiency (Acute) Urinary retention (Acute) Hyponatremia (Acute) Debility (Acute) Epilepsy (Acute) Latisha (Acute) Vital Signs Pulse Resp BP Pulse Ox O2 Del Method 81 18 157/78 H 99 Room Air 01/30/22 00:23 01/29/22 22:05 01/30/22 00:23 01/29/22 22:05 01/30/22 11:00 Oxygen Delivery Method Room Air Weight: 85.049 kg Body Mass Index (BMI) 32.7 Sodium 138 mmol/L (136-145) 01/30/22 05:26 Potassium 3.8 mmol/L (3.5-5.1) 01/30/22 05:26 Chloride 101 mmol/L (98-107) 01/30/22 05:26 Carbon Dioxide 29.0 mmol/L (21.0-32.0) 01/30/22 05:26 Anion Gap 8 (5-15) 01/30/22 05:26 BUN 18 mg/dL (7-18) 01/30/22 05:26 Creatinine 0.81 mg/dL (0.55-1.02) 01/30/22 05:26 Est GFR (MDRD) Af Amer 89 mL/min (>60) 01/30/22 05:26 Est GFR (MDRD) Non-Af 74 mL/min (>60) 01/30/22 05:26 BUN/Creatinine Ratio 22.3 RATIO (10-20) H 01/30/22 05:26 Glucose 107 mg/dL (74-106) H 01/30/22 05:26 Assessment/Plan: 1. Pain: acetaminophen 1000mg PO Q6H PRN pain 1-10. Please continue to monitor for increased pain and PRN usage. Resident has not received any doses. 2. Bowel: Miralax 17gm PO daily and senna/docusate 1T PO BID. Please continue to monitor for constipation. Resident had a documented bowel movement 01/29. 3. Gout: allopurinol 300mg PO daily. Please continue to monitor for S/S of gout and renal function. 4. 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 Please continue to monitor for cold sores and renal function. 5. Seizure disorder: lacosamide 150mg PO BID. Please continue to monitor for S/S of seizures. This medication is on the BEERs list for falls/fractures. Please continue to monitor. 6. Hypertension: lisinopril 10mg PO daily. Please continue to monitor BP (last 157/78), potassium (last 3.8mmol/L), renal function and cough. 7. Allergic rhinitis: loratadine 10mg PO daily. Please continue to monitor for S/S of allergies. 8. Osteoarthritis: meloxicam 7.5mg PO daily. Please continue to monitor for increased pain, renal function and bleeding. 9. Vitamin D/folate deficiencies/macular degeneration: cholecalciferol 25mcg PO daily, folic acid 1mg PO daily and healthy eyes 1C PO daily. Please consider ordering a vitamin D level if clinically appropriate. Last level from 12/2018. Thanks. Please continue to monitor. Assessment/Plan for indications treated with psychotropic medications: 1. Restless leg syndrome: pramipexole 0.5mg PO BID and gabapentin 600mg PO daily. Please continue to monitor for S/S of RLS, confusion and renal function. Gabapentin is on the BEERs list for falls/fractures. Please continue to monitor. Gabapentin is being used for RLS, GDR not appropriate. Medical chart and medication regimen reviewed. The following medication irregularities or issues were identified: *1. Cholecalciferol 25mcg PO daily. Please consider ordering a vitamin D level if clinically appropriate. Last level from 12/2018. Thanks. *2. Cyanocobalamin 500mcg PO BREAKFAST. I did not see a documented indication for this medication. Please consider adding the indication or stopping medication if not clinically indicated. Thanks. Please continue to monitor vitamin B12 levels if continued. Last level from 11/14/21. Date of Note:: 01/30/22
[2022-01-30 16:00] VITALS: BP 115/63; PULSE 86; RESP 18; TEMP 36.3; O2SAT 98
--- NOTE | 2022-01-30 16:24 | CASEMGMT ---
Social Work Met with patient to complete initial assessment. Introduced self and role. Verified/updated contacts. Discussed code status, MOLST form and advanced directives. Pt did not want to decide on code status or complete MOLST until after speaking with her daughters this weekend. Educated to pt remaining full code until notified otherwise. Pt expressed understanding. Pt to notify this worker with decision. Educated to [facility] insurance with NRD 02/02 and continued stay is not guaranteed with each review. Pt states she does not want to stay in TCU long; she wants to be home. However, pt states she has to be completely independent to be at home alone, which is not her current level right now. Pts daughters work multimedia services manager in the [place] area and are unable to assist during the week. Pt states she does have nice neighbors that call to check in on her. Pt very sporadic, anxious, switching from subject to subject, hard to follow conversation. SW had to redirect pt to focus on answering questions several times. SW to continue to follow for DC planning. Saadia Bravo, ROOF TILER MONOTYPE MECHANIC
[2022-01-30] MEDS: Senna/Docusate Sodium 1 Tablet PO (17:19)
[2022-01-31] MEDS: Gabapentin 600 MG Tablet PO ×2 (06:17→20:08)
[2022-01-31] MEDS: Multivitamin (Healthy Eyes) Capsule 1 CAP PO (06:18)
[2022-01-31] MEDS: Loratadine 10 MG Tablet PO ×2 (06:18→20:09)
[2022-01-31] MEDS: Acyclovir 200 MG Capsule 400 MG PO ×2 (06:18→16:57)
[2022-01-31] MEDS: Senna/Docusate Sodium 1 Tablet PO ×2 (06:18→16:57)
[2022-01-31] MEDS: Lisinopril 10 MG Tablet PO (06:18)
[2022-01-31] MEDS: Polyethylene Glycol 3350 17 GM PACKET PO (06:18)
[2022-01-31] MEDS: Meloxicam 7.5 MG Tablet PO (06:18)
[2022-01-31] MEDS: Cholecalciferol (VIT D3) 25 MCG TABLET (1,000 UNITS) PO (06:18)
[2022-01-31] MEDS: Allopurinol 300 MG Tablet PO (06:18)
[2022-01-31] MEDS: Lacosamide 100 MG Tablet 150 MG PO ×2 (06:20→20:08)
[2022-01-31] MEDS: Folic Acid 1 MG Tablet PO (07:47)
[2022-01-31] MEDS: Cyanocobalamin 500 MCG Tablet PO (07:47)
[2022-01-31 10:00] VITALS: PULSE 74; RESP 16; O2SAT 98
[2022-01-31] MEDS: FLU VACC QS2022-23(6MOS UP)/PF 60 MCG/0.5 ML SYRINGE IM (11:08)
[2022-01-31] MEDS: Pramipexole Di-HCl 0.5 MG Tablet PO ×2 (13:55→21:05)
[2022-01-31 16:00] VITALS: BP 138/65; PULSE 74; RESP 16; TEMP 36.5; O2SAT 98
--- NOTE | 2022-01-31 18:59 | NURSING ---
Patient stated she did not want to be awakened at 0600 to take medication. She also complained of getting upset stomach with some of her pills. Times changed per patient request.
[2022-02-01] MEDS: Lacosamide 100 MG Tablet 150 MG PO ×2 (08:43→19:51)
[2022-02-01] MEDS: Senna/Docusate Sodium 1 Tablet PO ×2 (08:47→16:50)
[2022-02-01] MEDS: Cyanocobalamin 500 MCG Tablet PO (08:47)
[2022-02-01] MEDS: Acyclovir 200 MG Capsule 400 MG PO ×2 (08:47→16:50)
[2022-02-01] MEDS: Cholecalciferol (VIT D3) 25 MCG TABLET (1,000 UNITS) PO (08:48)
[2022-02-01] MEDS: Meloxicam 7.5 MG Tablet PO (08:48)
[2022-02-01] MEDS: Lisinopril 10 MG Tablet PO (08:48)
[2022-02-01] MEDS: Multivitamin (Healthy Eyes) Capsule 1 CAP PO (08:48)
[2022-02-01] MEDS: Folic Acid 1 MG Tablet PO (08:48)
[2022-02-01] MEDS: Allopurinol 300 MG Tablet PO (08:49)
[2022-02-01] MEDS: Pramipexole Di-HCl 0.5 MG Tablet PO ×2 (13:59→22:41)
[2022-02-01 16:00] VITALS: BP 138/57; PULSE 89; RESP 16; TEMP 36.8; O2SAT 94
[2022-02-01] MEDS: Loratadine 10 MG Tablet PO (19:50)
[2022-02-01] MEDS: Gabapentin 600 MG Tablet PO (19:51)
[2022-02-02] MEDS: Lacosamide 100 MG Tablet 150 MG PO ×2 (08:14→20:22)
[2022-02-02] MEDS: Allopurinol 300 MG Tablet PO (08:15)
[2022-02-02] MEDS: Cyanocobalamin 500 MCG Tablet PO (08:15)
[2022-02-02] MEDS: Acyclovir 200 MG Capsule 400 MG PO ×2 (08:15→18:27)
[2022-02-02] MEDS: Cholecalciferol (VIT D3) 25 MCG TABLET (1,000 UNITS) PO (08:15)
[2022-02-02] MEDS: Lisinopril 10 MG Tablet PO (08:16)
[2022-02-02] MEDS: Multivitamin (Healthy Eyes) Capsule 1 CAP PO (08:16)
[2022-02-02] MEDS: Folic Acid 1 MG Tablet PO (08:16)
[2022-02-02] MEDS: Meloxicam 7.5 MG Tablet PO (08:16)
[2022-02-02] MEDS: Polyethylene Glycol 3350 17 GM PACKET PO (08:17)
[2022-02-02] MEDS: Senna/Docusate Sodium 1 Tablet PO ×2 (08:17→18:27)
[2022-02-02 08:20] VITALS: BP 126/50; PULSE 91
[2022-02-02 11:29] VITALS: PULSE 98; RESP 16; O2SAT 98
[2022-02-02] MEDS: Pramipexole Di-HCl 0.5 MG Tablet PO ×2 (13:47→22:00)
[2022-02-02 14:07] VITALS: BP 136/64; PULSE 96; RESP 16; TEMP 35.9; O2SAT 98
[2022-02-02] MEDS: Gabapentin 600 MG Tablet PO (21:59)
[2022-02-02] MEDS: Loratadine 10 MG Tablet PO (22:00)
[2022-02-03] MEDS: Folic Acid 1 MG Tablet PO (08:33)
[2022-02-03] MEDS: Senna/Docusate Sodium 1 Tablet PO ×2 (08:33→18:03)
[2022-02-03] MEDS: Meloxicam 7.5 MG Tablet PO (08:33)
[2022-02-03] MEDS: Lisinopril 10 MG Tablet PO (08:33)
[2022-02-03] MEDS: Allopurinol 300 MG Tablet PO (08:33)
[2022-02-03] MEDS: Cholecalciferol (VIT D3) 25 MCG TABLET (1,000 UNITS) PO (08:33)
[2022-02-03] MEDS: Polyethylene Glycol 3350 17 GM PACKET PO (08:33)
[2022-02-03] MEDS: Multivitamin (Healthy Eyes) Capsule 1 CAP PO (08:33)
[2022-02-03] MEDS: Acyclovir 200 MG Capsule 400 MG PO ×2 (08:33→18:03)
[2022-02-03] MEDS: Cyanocobalamin 500 MCG Tablet PO (08:33)
[2022-02-03] MEDS: Lacosamide 100 MG Tablet 150 MG PO ×2 (08:37→20:50)
--- NOTE | 2022-02-03 11:35 | NURSING ---
Residential Sales Consultant Note; Activity Asst complete
[2022-02-03 13:39] VITALS: PULSE 99; RESP 18; TEMP 36.2; O2SAT 100
[2022-02-03] MEDS: Pramipexole Di-HCl 0.5 MG Tablet PO ×2 (13:59→22:03)
[2022-02-03] MEDS: Loratadine 10 MG Tablet PO (22:03)
[2022-02-03] MEDS: Gabapentin 600 MG Tablet PO (22:05)
[2022-02-04] MEDS: Lacosamide 100 MG Tablet 150 MG PO ×2 (07:58→20:54)
[2022-02-04] MEDS: Folic Acid 1 MG Tablet PO (07:59)
[2022-02-04] MEDS: Meloxicam 7.5 MG Tablet PO (07:59)
[2022-02-04] MEDS: Multivitamin (Healthy Eyes) Capsule 1 CAP PO (07:59)
[2022-02-04] MEDS: Senna/Docusate Sodium 1 Tablet PO ×2 (08:00→16:47)
[2022-02-04] MEDS: Lisinopril 10 MG Tablet PO (08:00)
[2022-02-04] MEDS: Cyanocobalamin 500 MCG Tablet PO (08:00)
[2022-02-04] MEDS: Cholecalciferol (VIT D3) 25 MCG TABLET (1,000 UNITS) PO (08:00)
[2022-02-04] MEDS: Polyethylene Glycol 3350 17 GM PACKET PO (08:01)
[2022-02-04] MEDS: Allopurinol 300 MG Tablet PO (08:01)
[2022-02-04] MEDS: Acyclovir 200 MG Capsule 400 MG PO ×2 (08:01→16:47)
--- NOTE | 2022-02-04 10:18 | CASEMGMT ---
Social Work IDT met with patient and dtr/AIADN via conference call for care plan meeting. Discussed patient's progress in PT/OT/ST/SN. Educated to [employer] insurance with NRD 02/06 and continued stay is not guaranteed. Pt is adlib with no device. Pt lives at home alone was independent prior. Pt has returned to baseline and is ready to DC. IDT and pt agreeable to DC 02/06 with outpatient PT at [facility]. Pt cannot drive to appts. SW offered [facility]. Pt appreciative. Dtr to transport at DC prior to neurology appt. No DME needs. Plan: DC home alone 02/06, [facility] PT, [facility] ANAND BergmanW
--- NOTE | 2022-02-04 12:25 | CASEMGMT ---
Social Work BIMS () and PHQ-9 (07/27) completed for MDS assessment. Saadia Bravo MSW STORE FACILITY TECHNICIAN
[2022-02-04] MEDS: Pramipexole Di-HCl 0.5 MG Tablet PO ×2 (14:22→20:56)
[2022-02-04 15:06] VITALS: BP 130/62; PULSE 88; RESP 20; TEMP 36.2; O2SAT 99
[2022-02-04] MEDS: Gabapentin 600 MG Tablet PO (20:55)
[2022-02-04] MEDS: Loratadine 10 MG Tablet PO (20:56)
--- NOTE | 2022-02-04 21:17 | DS.PCM_ITS ---
Providers Date of Admission: 01/29/22 Primary Care Physician: Dr. Sudha Adler MD Reason For Visit: UTI, HYPONATREMIA Diagnosis Discharge Diagnosis (1) Debility: Status: Acute Code(s): R53.81 - Other malaise (2) Epilepsy: Status: Acute Code(s): G40.909 - Epilepsy, unspecified, not intractable, without status epilepticus (3) Latisha: Status: Acute Code(s): F30.9 - Manic episode, unspecified (4) Hyponatremia: Status: Acute Code(s): E87.1 - Hypo-osmolality and hyponatremia (5) Urinary retention: Status: Acute Code(s): R33.9 - Retention of urine, unspecified (6) Vitamin D deficiency: Status: Acute Code(s): E55.9 - Vitamin D deficiency, unspecified (7) Hypertension: Status: Chronic Code(s): I10 - Essential (primary) hypertension (8) Allergic rhinitis: Status: Acute Code(s): J30.9 - Allergic rhinitis, unspecified (9) Herpes simplex: Status: Acute Code(s): B00.9 - Herpesviral infection, unspecified (10) Gout: Status: Acute Code(s): M10.9 - Gout, unspecified (11) Depression: Status: Acute Code(s): F32.A - Depression, unspecified (12) History of breast cancer: Status: Acute Code(s): Z85.3 - Personal history of malignant neoplasm of breast (13) Restless leg syndrome: Status: Acute Code(s): G25.81 - Restless legs syndrome (14) Monoclonal gammopathy of undetermined significance: Status: Acute Code(s): D47.2 - Monoclonal gammopathy Plan 76 year old female with below past medical history hospitalized for seizure disorder, complicated by manic/behavioral changes, hyponatremia, urinary retention, admitted to TCU with debility, here for rehabilitation, strengthening, prior to discharge home alone. * Debility - PT/OT. * Pain - Tylenol 1000mg q6h prn pain (1-10). * Bowel - Senna/colace 1 tablet bid. * Adult immunization - Administer pneumonia vaccine, covid19 vaccine, flu vaccine as appropriate. * DVT prophylaxis - Hold, not necessary. * Cold sores - Acyclovir 400mg bid. * Gout - Allopurinol 300mg daily. * Folate deficiency - Folic acid 1mg daily. * Restless Leg syndrome - Gabapentin 600mg daily, Mirapex 0.5mg bid. * Seizure disorder - Vimpat 150mg bid. * Hypertension - Lisinopril 10mg daily. * Allergic rhinitis - Loratadine 10mg daily. * Osteoarthritis - Meloxicam 7.5mg daily. * Macular degeneration - Healthy Eyes 1 tablet daily. * Vitamin D deficiency - D3 25mcg daily. Medications at Discharge Home Medications allopurinol 300 mg tablet 1 tab PO DAILY Gout 11/19/21 cholecalciferol (vitamin D3) 25 mcg (1,000 unit) tablet (Vitamin D3) 1,000 unit PO DAILY Vitamin D deficiency 12/17/21 folic acid 800 mcg tablet 1,000 mg PO DAILY Supplement 12/17/21 gabapentin 600 mg tablet 600 mg PO QHS Check with primary doctor 12/17/21 loratadine 10 mg tablet 10 mg PO DAILY Seasonal Allergies 01/29/22 [id number] 5 mg-zeaxanth 1 mg-bilberry 7.5 mg-herbal capsule (Macular Health Formula) 1 cap PO DAILY Supplement 01/29/22 valacyclovir 1 gram tablet 1,000 mg PO DAILY Check with primary doctor 01/29/22 cyanocobalamin (vitamin B-12) 500 mcg tablet 500 mcg PO BREAKFAST #0 tabs 02/04/22 lacosamide 100 mg tablet (Vimpat) 150 mg PO 0800,2000 30 days #90 tabs 02/04/22 lisinopril 10 mg tablet 10 mg PO DAILY Blood pressure 30 days #30 tabs 02/04/22 meloxicam 7.5 mg tablet 7.5 mg PO BREAKFAST Check with primary doctor 30 days #30 tabs 02/04/22 pramipexole 0.5 mg tablet 0.5 mg PO 1400,2200 Check with primary doctor 30 days #60 tabs 02/04/22 Hospital Course Operations None Procedures None Summary of Care Provided Minutes Spent on Discharge: 35 Hospital Course: 76 year old female with below past medical history hospitalized for seizure disorder, complicated by manic/behavioral changes, hyponatremia, urinary retention, admitted to TCU with debility, here for rehabilitation, strengthening, prior to discharge home alone. Discharge home alone 02/06/2022, [facility] Directions. Physical Exam Const alert General Appearance: cooperative HEENT normocephalic Eyes PERRL and EOMs intact bilaterally Neck supple, no JVD and no carotid bruits Resp normal respiratory effort, normal air movement and clear to auscultation bilaterally Cardio regular rate and regular rhythm GI normal to inspection, nondistended, normoactive bowel sounds, non-tender and non-distended Extremity normal capillary refill General Extremity: Negative for edema Skin no rashes or lesions noted General Skin Exam: no breakdown Psych affect normal Appearance: appropriate Weight / BMI Weight Weight: 86.092 kg Body Mass Index (BMI) 32.7 ABG / Lab / Microbiology Data Result Diagrams: 01/30/22 05:26 01/30/22 05:26 Microbiology: Microbiology 01/30/22 00:11 Nasal Secretion SARS-CoV-2 Antigen (Rapid) - Final D/C Instructions Discharge Diet: No restrictions Discharge Activity: Return to Normal Activity, May Shower and Use Walker Weight Bearing Status: Weight bearing as tolerated Call your doctor if you observe: Fever of 101 or Higher, Inability to urinate, Inability to have a bowel movement, Shortness of breath, Dizziness, Fainting spells, Swelling in the ankles, Chest pain and Uncontrolled pain Additional Instructions: Discharge home alone 02/06/2022, [facility] Directions. Please Follow Up With: Dr. Fidel Farrar When: As scheduled. Meaningful Use Info Meaningful Use Diagnoses (Choose all that apply): None applicable Discharge Plan Admission Admit Date/Time: 01/29/22 20:55 Primary Reason for Your Visit: Debility. Attending Provider: Emil Smiley Chi Primary Care Provider: Sudha Adler Instructions Additional Instructions / Restrictions: Discharge home alone 02/06/2022, [facility] Directions. Discharge Orders/Prescriptions Prescriptions: New cyanocobalamin (vitamin B-12) 500 mcg Tablet 500 mcg PO BREAKFAST Qty: 0 0RF lacosamide [Vimpat] 100 mg Tablet 150 mg PO 0800,1999 30 Days Qty: 90 0RF Continued folic acid 800 mcg tablet 1,000 mg PO DAILY gabapentin 600 mg tablet 600 mg PO QHS cholecalciferol (vitamin D3) [Vitamin D3] 25 mcg (1,000 unit) tablet 1,000 unit PO DAILY allopurinol 300 mg tablet 1 tab PO DAILY valacyclovir 1 gram tablet 1,000 mg PO DAILY loratadine 10 mg Tablet 10 mg PO DAILY Macular Health Formula 5-1-7.5 mg Capsule 1 cap PO DAILY meloxicam 7.5 mg tablet 7.5 mg PO BREAKFAST 30 Days Qty: 30 0RF lisinopril 10 mg tablet 10 mg PO DAILY 30 Days Qty: 30 0RF Changed pramipexole 0.5 mg tablet 0.5 mg PO 1400,2200 30 Days Qty: 60 0RF Discontinued biotin 1 mg capsule 1 mg PO DAILY cranberry extract 425 mg capsule 425 mg PO DAILY Rx Instructions: administer with a meal senna 8.6 mg capsule 8.6 mg PO DAILY acyclovir 200 mg Capsule 400 mg PO 5X/DAY Qty: 0 0RF cyanocobalamin (vitamin B-12) 500 mcg Tablet 500 mcg PO BREAKFAST Qty: 0 0RF polyethylene glycol 3350 [Miralax] 17 gram Powder In Packet 17 g PO DAILY docusate sodium 250 mg Capsule 250 mg PO DAILY lacosamide 150 mg Tablet 150 mg PO BID Referrals / Follow Up: Sudha Adler MD [Primary Care Provider] - (patient said she will set this appointment up ) Disposition Disposition (needs filled in before D/C Order can be placed): Home, Self Care
[2022-02-04 22:00] VITALS: PULSE 79; RESP 16; O2SAT 98
[2022-02-05] MEDS: Folic Acid 1 MG Tablet PO (08:14)
[2022-02-05] MEDS: Meloxicam 7.5 MG Tablet PO (08:15)
[2022-02-05] MEDS: Multivitamin (Healthy Eyes) Capsule 1 CAP PO (08:15)
[2022-02-05] MEDS: Senna/Docusate Sodium 1 Tablet PO ×2 (08:15→17:06)
[2022-02-05] MEDS: Acyclovir 200 MG Capsule 400 MG PO ×2 (08:16→17:07)
[2022-02-05] MEDS: Cyanocobalamin 500 MCG Tablet PO (08:16)
[2022-02-05] MEDS: Allopurinol 300 MG Tablet PO (08:16)
[2022-02-05] MEDS: Cholecalciferol (VIT D3) 25 MCG TABLET (1,000 UNITS) PO (08:16)
[2022-02-05] MEDS: Lisinopril 10 MG Tablet PO (08:16)
[2022-02-05] MEDS: Polyethylene Glycol 3350 17 GM PACKET PO (08:17)
[2022-02-05] MEDS: Lacosamide 100 MG Tablet 150 MG PO ×2 (08:24→20:18)
[2022-02-05 08:25] VITALS: BP 127/50; PULSE 81
--- NOTE | 2022-02-05 08:57 | MDS.RN ---
Armhole Sewer Note; MDS Complete
[2022-02-05] MEDS: Pramipexole Di-HCl 0.5 MG Tablet PO ×2 (13:46→22:03)
[2022-02-05 15:57] VITALS: BP 121/58; PULSE 88; RESP 16; TEMP 36.6; O2SAT 96
--- NOTE | 2022-02-05 16:06 | CASEMGMT ---
Social Work Completed HCPOA and LW documents with pt. Original and copy provided to pt. Copies placed on chart. Saadia Bravo, ELECTRONICS MANUFACTURER SUPERVISOR [employer]
[2022-02-05 18:08] LABS: Anion Gap 5 (5-15); BUN 23 mg/dL (7-18); BUN/Creat Ratio 30.6 RATIO (10-20); Calcium,Total 9.1 mg/dL (8.5-10.1); Chloride 105 mmol/L (98-107); Creatinine, Serum 0.75 mg/dL (0.55-1.02); EST Glomerular Filtration Rate 80 mL/min (>60); Est Glom Filt Rate - Afr Amer 97 mL/min (>60); Estimated Creatinine Clearance 40.83 ml/min; Glucose 102 mg/dL (74-106); Potassium 4.1 mmol/L (3.5-5.1); Sodium Level 141 mmol/L (136-145)
[2022-02-05] MEDS: Gabapentin 600 MG Tablet PO (22:03)
[2022-02-05] MEDS: Loratadine 10 MG Tablet PO (22:03)
[2022-02-06 06:13] LABS: Absolute Lymphocyte Count 1.82 X10^3/uL (0.83-4.51); Absolute Neutrophil Count 5.8 X10^3/uL (2.0-7.7); Basophil# 0.03 X10^3/uL; Basophil% 0.4 % (0-1); Eosinophil# 0.09 X10^3/uL; Eosinophils% 1.1 % (0-5); Hematocrit 35.1 % (37-47); Hemoglobin 11.3 g/dL (12.0-15.0); Lymphocyte # 1.82 X10^3/ul (0.83-4.51); Lymphocyte % 22.1 % (19-41); Mean Corp Hgb Conc 32.2 g/dL (32-36); Mean Corpuscular Hgb 32.6 pg (27.0-32.0); Mean Corpuscular Volume 101.2 fL (81-99); Mean Platelet Vol. 11.1 fl (6.2-12.0); Monocyte# 0.45 X10^3/uL; Monocyte% 5.5 % (0-10); NRBC Flagged by Analyzer 0 % (0-5); Neutrophil # 5.82 X10^3/uL (2.7-7.7); Neutrophil % 70.5 % (47-70); Platelet Count 234 K/mm3 (150-450); RBC Distribution Width CV 14.1 % (11.6-14.6); Red Blood Count 3.47 M/mm3 (4.2-5.4); White Blood Count 8.2 K/mm3 (4.4-11.0)
[2022-02-06] MEDS: Multivitamin (Healthy Eyes) Capsule 1 CAP PO (07:58)
[2022-02-06] MEDS: Allopurinol 300 MG Tablet PO (07:58)
[2022-02-06] MEDS: Polyethylene Glycol 3350 17 GM PACKET PO (07:58)
[2022-02-06] MEDS: Folic Acid 1 MG Tablet PO (07:58)
[2022-02-06] MEDS: Acyclovir 200 MG Capsule 400 MG PO (07:58)
[2022-02-06] MEDS: Lisinopril 10 MG Tablet PO (07:58)
[2022-02-06] MEDS: Cyanocobalamin 500 MCG Tablet PO (07:59)
[2022-02-06] MEDS: Cholecalciferol (VIT D3) 25 MCG TABLET (1,000 UNITS) PO (07:59)
[2022-02-06] MEDS: Senna/Docusate Sodium 1 Tablet PO (07:59)
[2022-02-06] MEDS: Meloxicam 7.5 MG Tablet PO (07:59)
[2022-02-06] MEDS: Lacosamide 100 MG Tablet 150 MG PO (08:02)
[2022-02-06 09:25] VITALS: BP 146/62; PULSE 94; RESP 18; TEMP 36.7; O2SAT 99
--- NOTE | 2022-02-10 09:09 | MDS.RN ---
Information for the mds was obtained from review of the clinical record, interview of resident, staff, and direct observation of resident's care. PDPM codes did not generate for 5 day assessment, [facility] information systems/ TCU admin. notified.
== END 2022-02-06 12:40 | disposition home or self-care (01) | DRG 101 ==
PROVIDERS: Admitting Provider Family Medicine Geriatric Medicine; PCP Family Medicine; Visit Provider Family Medicine Geriatric Medicine
DX: G40.909 Epilepsy, unspecified, not intractable, without status epilepticus (principal); B00.1 Herpesviral vesicular dermatitis; H35.30 Unspecified macular degeneration; M19.90 Unspecified osteoarthritis, unspecified site; E55.9 Vitamin D deficiency, unspecified; G25.81 Restless legs syndrome; I10 Essential (primary) hypertension; M10.9 Gout, unspecified; E53.8 Deficiency of other specified B group vitamins; D47.2 Monoclonal gammopathy; R33.9 Retention of urine, unspecified; F32.A Depression, unspecified; Z79.891 Long term (current) use of opiate analgesic; Z79.899 Other long term (current) drug therapy; Z23 Encounter for immunization
CPT/HCPCS: 36415; 80048; 85025; 87426; 87811; 92507; 92523; 97110; 97116; 97162; 97166; 97530; 97535; 97802; G0008; 90686

== ENCOUNTER 2022-02-09 13:37 | Outpatient (RCR) | payer MEDICARE, SELFPAY ==
--- NOTE | 2022-02-09 15:52 | HP.PTEVAL_ITS ---
Patient's Visit Information JASEN ANDERSEN is a 76 year old F referred to Physical Therapy by Dr. Emil Smiley MD with a diagnosis of epilepsy and debility. Date of Evaluation: 02/09/22 Physical Therapist: Jermaine Garcia DPT - Visit Plan Frequency: 1x/Week Duration: 4 Weeks Plan: Overall patient is doing well. I encouraged her to start a walking program. She has a bike in her basement which I would also like her to start using again, Pt. consents. - Subjective Pt. is here for her initial evaluation with diagnosis of epilepsy and debility. Pt. had an episode at the end of october and another a week or two later. They ended up diagnosing her with Epilepsy. She went to an epilepsy clinic then 8 days on TCU. She is now back to at home. Pt. lives alone, but recently had video cameras placed in house that her family can check in on her. Pt. reports no falls. She is no longer using an AD. Her biggest complaint is that she can not use her car for the next 6 months. Pt. is complaining of general fatigue. Since she has been home she has done well. She has been able to go up and down stairs, cook, shower. She has not done much walking outside the home. She is hopeful to get back to working out recreationally in local gym, but has concerns about getting there. - Objective POSTURE: Pt. has decent posture in stance. Slight FH with rounded shoulders. Pt. has normal MAGDALENA in stance. PALPATION: no issues with LE palpation. NEURO: normal sensation and normal DTR of BLEs. Pt. is able to rise on heels and toes without limitations. ROM: Pt. has good ROM of B knees, normal HS length. Normal lumbar spine ROM noted. MMT: 5/5 throughout BLEs, no issues noted. Core strength- poor+. GAIT: Pt. ambulates well without AD. STAIRS: Pt. is able to negotiate with reciprocal pattern to ascend with 1 HR. She does descend with lateral method as she likes to use 1 HR as she has only 1 at home. - Balance/Special Test Scores Functional Gait Assessment Score: 25 % Disability: 16.6700 CATSIB Score (Max score 120 seconds): 109 Lower Extremity Functional Score: 45 TUG Test Time Seconds: 8.6 30 Second Chair Rise Test Seconds: 15 6 Minute Walk Test: 957 feet with no AD. Mild fatigue noted. 6 on dyspnea scale. - Goals Goal 1:: LTG: Pt. to be I with HEP. Goal Time Frame: 4-6 Weeks Goal 2:: LTG: Pt. to increase FGA score to 29/30. Goal Time Frame: 4-6 Weeks Goal 3:: LTG: pt. to be able to ambulate 1100 feet on 6 MWT. - Rehabilitation Potential Physical Therapy Diagnosis: Pt. has signs and symptoms of slight debility, but is overall doing well. She was in a medical facility for a few weeks and I think she has some subsequent debility secondary to her time of not moving her normal routine. She presents with some slight issues with balance and mild endurance issues, but is overall doing well. Rehabilitation Potential: Excellent - Anticipated Interventions Patient/Client Instruction: Educate patient on: Condition, Plan of Care, Risk Factors, Benefits of Fitness Program For the Purpose of:: To improve decision making, To facilitate caregiver knowledge, To improve self management, To prevent re-injury, To improve ability to perform tasks related to life management, To improve tolerance to ADL's Therapeutic Exercise to Include: Strength training, Power training, Endurance training, Balance training, Gait and locomotor training For the Purpose of:: To increase oxygenation perfusion, To improve muscle performance and motor function, To improve ability to perform ADL's, To increase tolerance to activity/condition/position, To improve gait and locomotor functions, To improve health of tissue, To decrease soft tissue restriction, To improve endurance, To improve balance Thank you for the opportunity to evaluate your patient. For Medicare and Medicare HMO plans, please review the plan of care and approve it. It will need to be FAXED BACK to us at [phone] for Medicare purposes. For Medicare only, by signing this I certify the plan of care. Please let me know if there are questions or concerns regarding this plan of care. Physician Signature: Date:
== END 2022-02-09 19:00 | disposition home or self-care (01) ==
LOC: PT 13:37
PROVIDERS: PCP Family Medicine Geriatric Medicine; Referring Provider Family Medicine Geriatric Medicine; Visit Provider Family Medicine Geriatric Medicine
DX: G40.909 Epilepsy, unspecified, not intractable, without status epilepticus (principal); R53.81 Other malaise
CPT/HCPCS: 97161

== ENCOUNTER 2022-03-31 08:27 | Day surgery (SDC) | payer MEDICARE, SELFPAY ==
[2022-03-31] VITALS (7 sets, daily range): BP systolic 81–166; BP diastolic 57–87; PULSE 77–106; RESP 16–17; TEMP 36.2–36.7; O2SAT 95–106; BMI 33.7
--- NOTE | 2022-03-31 | COLBX_PTH ---
PATIENT: JASEN ANDERSEN LOC: EN U#:[id number] AGE/SX: 76/F ROOM: RE03/31/[address]: Dr. Hemanth George MD : 1945 BED: DIS: 03/31/2022 SPEC #: [id number] RECD: 03/31/22 12:13 STATUS: JUDITH PEREAJasmeet #: [id number] LUC: 03/31/22 00:[address]: eHmanth George DEPT: SURGICAL PATHOLOGY RECD BY: Ion Harkins ENTERED: 03/31/22 12:13 SP TYPE: COLON BX OTHR DR: Dr. Sudha Adler MD Tissues: Ascending colon Procedures: Surgery Specimen Level IV HEADER OPERATION: Colonoscopy (MAC), polypectomy PRE-OP DIAGNOSIS: Monoclonal gammopathy, abnormal CT scan TISSUE SUBMITTED: Proximal ascending polyp MICROSCOPIC DIAGNOSIS Proximal ascending colon polyp, biopsy: Fragments of tubular adenoma. AM:jaguar 04/01/2022 MICROSCOPIC DESCRIPTION Slides are reviewed. GROSS DESCRIPTION Received in fixative is one container labeled with the patient's name and designated proximal ascending colon polyp. The specimen consists of one irregular fragment of light swenson soft tissue that measures 0.3 x 0.3 x 0.1 cm. The specimen is totally submitted in one cassette. / SJ:jaguar 03/31/2022 TC:5 [facility]: [id number]
--- NOTE | 2022-03-31 08:36 | HP.PCM_ITS ---
History and Physical Date of Admission: 03/31/22 Visit Reasons:?COLONOSCOPY Chief Complaint: colonoscopy Is patient in pain?: No Allergies hydrocodone Adverse Reaction (Verified 03/12/22 09:04) Nausea/Vom/Diarrheapropoxyphene HCl [From Darvon] Adverse Reaction (Verified 03/12/22 09:04) Other Medications allopurinol 300 mg tablet 1 tab PO DAILY Gout 11/19/21 [History Confirmed 03/12/22] cholecalciferol (vitamin D3) 25 mcg (1,000 unit) tablet (Vitamin D3) 1,000 unit PO DAILY Vitamin D deficiency 12/17/21 [History Confirmed 03/12/22] folic acid 800 mcg tablet 1,000 mg PO DAILY Supplement 12/17/21 [History Confirmed 03/12/22] gabapentin 600 mg tablet 600 mg PO QHS Check with primary doctor 12/17/21 [History Confirmed 03/12/22] loratadine 10 mg tablet 10 mg PO DAILY Seasonal Allergies 01/29/22 [History Confirmed 03/12/22] bnjrzfxs-zwh-kvnvhs 5 mg-zeaxanth 1 mg-bilberry 7.5 mg-herbal capsule ([employer] Formula) 1 cap PO DAILY Supplement 01/29/22 [History Confirmed 03/12/22] valacyclovir 1 gram tablet 1,000 mg PO DAILY Check with primary doctor 01/29/22 [History Confirmed 03/12/22] cyanocobalamin (vitamin B-12) 500 mcg tablet 500 mcg PO BREAKFAST #0 tabs 02/04/22 [Rx Confirmed 03/12/22] lacosamide 100 mg tablet (Vimpat) 150 mg PO 0800,2000 30 days #90 tabs 02/04/22 [Rx Confirmed 03/12/22] lisinopril 10 mg tablet 10 mg PO DAILY Blood pressure 30 days #30 tabs 02/04/22 [Rx Confirmed 03/12/22] meloxicam 7.5 mg tablet 7.5 mg PO BREAKFAST Check with primary doctor 30 days #30 tabs 02/04/22 [Rx Confirmed 03/12/22] pramipexole 0.5 mg tablet 0.5 mg PO 1400,2200 Check with primary doctor 30 days #60 tabs 02/04/22 [Rx Confirmed 03/12/22] PFSH Medical History? Anxiety Bradycardia Depression Epilepsy Essential hypertension Gout History of breast cancer HSV-1 infection Latisha RLS (restless legs syndrome) Slurred speech Surgical History? History of esophagogastroduodenoscopy (EGD) (02/2020) History of left knee replacement (10/16/08) History of lumpectomy of right breast (05/2014) History of right knee joint replacement (02/05/09) History of shoulder surgery (~10/20/11) History of tubal ligation Family History? Father Heart diseaseMother Heart disease OsteoporosisSister CancerSister Heart diseaseSister MyastheniaBrother CVA (cerebral vascular accident) Social History? household members:? none Smoking Status:? Never smoker alcohol intake:? current details:? occasional substance use type:? does not use HPI HPI HPI: 76-year-old female who is referred by Dr. Sudha Adler for surgical consultation regarding a colonoscopy and a written, surgical consult and recommendations will return to her.? Patient has a history of breast cancer treated in 2014.? I performed a wire localized upper mid outer right breast lumpectomy with blue dye sentinel node biopsy.? She has epilepsy.? Monoclonal gammopathy of undetermined significance.? She spent 8 days at [facility] epilepsy center and is transferred to the transitional care unit [facility] for 8 additional days.? She was referred by oncologist Dr. Malcolm Duran and is recommended to have a follow-up colonoscopy based upon a PET scan and patient history.? Previous colonoscopy was 4 years ago.? October 2021 she was seen by Dr. Kel Johnson for symptomatic bradycardia.? She has a first-degree AV block.? Holter monitor showed 31 premature supraventricular ectopic beats.? There were total 241 premature ventricular ectopic beats.? Minimum heart rate was 57 and maximum heart rate was 132.? As of February 05, 2022 white blood cell count was 8.2 with a hemoglobin 11.3 medic 35.1 platelet count 234,000.? BUN is 23 and creatinine 0.75. She reports that 2018 she had E. coli.? She was hospitalized in [place].? Had a colonoscopy there.? She states it was recommended to her that she have a follow- up with 3 years.? She does have a history of polyps. She is seen Dr. Malcolm Duran.? A CT urogram showed some rectal wall thickening.? He also is recommending that she follow through with a colonoscopy. Because of her seizure disorder she is not on any anticoagulants. She denies bright red blood per rectum or melena.? No abdominal pain.? No change in bowel habits.? No weight change ROS General General: Yes breast cancer; No weight change, appetite, fatigue, colon cancer or weakness Additional Details: h/o right breast cancer. HEENT HEENT: No difficulty swallowing, eye injury, eye surgery, swollen glands or hoar seness Endo Endocrine: No thyroid disease, diabetes mellitus, thyroid cancer, Hair loss, heat intolerance or cold intolerance Skin Skin: No rash or changing moles Breast Breast: No left breast lump, right breast lump, nipple discharge, breast pain, abnormal mammogram, abnormal US or breast enlargement Musc Musculoskeletal: Yes gout; No back problems, arthritis, rheumatoid arthritis or joint pain Cardio Cardiovascular: Yes high blood pressure; No murmur, pacemaker, heart disease, atrial fibrillation, heart attack, heart stent, palpitations, shortness of breat with exertion or chest pain Psych Psychiatric: No depression, anxiety or hearing voices Resp Respiratory: No shortness of breath, No sleep apnea, No cough, No COPD, No asthma, No emphysema and No wheezing Gastro Gastrointestinal: No abdominal pain, No nausea or vomiting, No diarrhea, No constipation, No blood in stool, No acid reflux, Yes hemorrhoids, No ulcers, No gallbladder problem and No black,tarry stools Malcolm Hematologic: No blood thinners, No blood disorders, No bleeding, No anemia and No blood clots Neuro Neurologic: No system reviewed and no additional complaints, except as documented, No as per HPI, No abnormal gait, No abnormal hearing, No abnormal movements, No abnormal speech, No behavioral changes, No burning sensations, No confusion, No convulsions, No disequilibrium, No dizziness, No localized weakness, No frequent falls, No headache(s), No lack of coordination, No loss of vision, No memory loss, No numbness, No other visual disturbances, No radicular pain, No restless legs, No sensory deficit, No syncope, No tingling, No tremor(s), No weakness and No other Exam Const General: cooperative, comfortable and no acute distress Other: Speech is clear just slightly hesitant HENMT Head: normal to inspection Eyes General: appearance normal, both eyes and all related structures Resp Effort & Inspection: normal respiratory effort Auscultation: clear to auscultation bilaterally Cardio Rate: regular rate Rhythm: regular rhythm GI Palpation: soft and no hepatosplenomegaly Other: Notably overweight, normal bowel sounds, Musc Cervical Spine: normal cervical lordosis Skin General: no rashes or lesions noted Extrem General: no calf tenderness Psych Appearance: grossly normal Assessment and Plan Assessment and Plan (1) Monoclonal gammopathy of undetermined significance: ?Status:?Acute (2) Abnormal CT scan, colon: ?Status:?Acute ?Plan: I recommend to the patient that we obtain her previous colonoscopy report and pathology report from her stay at [place] 3 years ago, 2019.? Because of her abnormal CT imaging I am recommending to her a colonoscopy with possible biopsy or polypectomy as indicated.? Very careful inspection of the rectal mucosa will be pursued.? She is aware of the technique, benefit, risk, alternatives.? She has had an opportunity to ask and have questions answered.? Because of her recent seizure history we will involve anesthesia with monitored anesthesia care. I appreciate the opportunity of assisting with her surgical care and we will proceed as noted. Copy: Dr. Malcolm Duran and Dr. Sudha George M.D., F.A.C.S. I have examined the patient and the H&P has been reviewed. There are no clinical changes since date of exam. Hemanth George M.D., F.A.C.S.
[2022-03-31] MEDS: Lactated Ringers 1,000 ML 15 ML IV (08:50)
--- NOTE | 2022-03-31 10:17 | OP.COLON_ITS ---
Patient Name: Aziza Campuzano Procedure Date: 03/31/2022 9:47 AM Date of : 1945 Age: 76 Procedure: Colonoscopy Indications: Abnormal CT of the GI tract Providers: Hemanth George MD Referring MD: Sudha Adler Medicines: See the Anesthesia note for documentation of the administered medications Patient Profile: Last Colonoscopy: May 2018. Complications: No immediate complications. Procedure: Pre-Anesthesia Assessment: - Prior to the procedure, a History and Physical was performed, and patient medications and allergies were reviewed. The patient's tolerance of previous anesthesia was also reviewed. The risks and benefits of the procedure and the sedation options and risks were discussed with the patient. All questions were answered, and informed consent was obtained. Prior Anticoagulants: The patient has taken no previous anticoagulant or antiplatelet agents. ASA Grade Assessment: II - A patient with mild systemic disease. After reviewing the risks and benefits, the patient was deemed in satisfactory condition to undergo the procedure. After I obtained informed consent, the scope was passed under direct vision. Throughout the procedure, the patient's blood pressure, pulse, and oxygen saturations were monitored continuously. The colonoscope was introduced through the anus and advanced to the cecum, identified by appendiceal orifice and ileocecal valve. The colonoscopy was performed without difficulty. The patient tolerated the procedure well. The quality of the bowel preparation was good. The ileocecal valve and the appendiceal orifice were photographed. Scope In: 9:54:51 AM Scope Withdrawal Time 0 hours 8 minutes 54 seconds Scope Out: 10:11:22 AM Total Procedure Duration Time 0 hours 16 minutes 31 seconds Findings: The digital rectal exam findings include non-thrombosed external hemorrhoids, non-thrombosed internal hemorrhoids and internal hemorrhoids that prolapse with straining, but spontaneously regress to the resting position (Grade II). A 5 mm polyp was found in the proximal ascending colon. The polyp was sessile. The polyp was removed with a hot snare. Resection and retrieval were complete. Multiple diverticula were found in the sigmoid colon. The exam was otherwise without abnormality. Impression: - Non-thrombosed external hemorrhoids, non-thrombosed internal hemorrhoids and internal hemorrhoids that prolapse with straining, but spontaneously regress to the resting position (Grade II) found on digital rectal exam. - One 5 mm polyp in the proximal ascending colon, removed with a hot snare. Resected and retrieved. - Diverticulosis in the sigmoid colon. - The examination was otherwise normal. Rectum appears to be completely normal. Recommendation: - Discharge patient to home. - Resume previous diet. - Continue present medications. - Repeat colonoscopy in 5 years for surveillance based on pathology results. - Telephone my office for pathology results in 1 week. Procedure Code(s): --- Professional --- 27022, Colonoscopy, flexible; with removal of tumor(s), polyp(s), or other lesion(s) by snare technique Diagnosis Code(s): --- Professional --- K64.1, Second degree hemorrhoids K64.4, Residual hemorrhoidal skin tags D12.2, Benign neoplasm of ascending colon K57.30, Diverticulosis of large intestine without perforation or abscess without bleeding R93.3, Abnormal findings on diagnostic imaging of other parts of digestive tract CPT copyright 2017 [employer]. All rights reserved. The codes documented in this report are preliminary and upon retail sales representative review may be revised to meet current compliance requirements. Hemanth George MD 03/31/2022 10:16:33 AM This report has been signed electronically. Number of Addenda: 0 Note Initiated On: 03/31/2022 9:47 AM
--- NOTE | 2022-03-31 10:18 | OP.CCLET_ITS ---
03/31/2022 Sudha Adler [place] [id number] [place] [address] Re : Colonoscopy procedure for Aziza Campuzano Dear Dr. Adler This procedure was performed on Thursday, March 31, 2022. My impressions and recommendations are as follows: Impressions : - Non-thrombosed external hemorrhoids, non-thrombosed internal hemorrhoids and internal hemorrhoids that prolapse with straining, but spontaneously regress to the resting position (Grade II) found on digital rectal exam. - One 5 mm polyp in the proximal ascending colon, removed with a hot snare. Resected and retrieved. - Diverticulosis in the sigmoid colon. - The examination was otherwise normal. Rectum appears to be completely normal. Recommendations : - Discharge patient to home. - Resume previous diet. - Continue present medications. - Repeat colonoscopy in 5 years for surveillance based on pathology results. - Telephone my office for pathology results in 1 week. My findings are described in the full procedure note, which is enclosed. If I can be of further assistance, please feel free to contact me at Doctor phone number(s): Work: . Sincerely, Hemanth George MD 03/31/2022 10:16:33 AM This report has been signed electronically.
== END 2022-03-31 11:12 | disposition home or self-care (01) ==
LOC: EN 08:27 → AC 08:29
PROVIDERS: PCP Family Medicine; Referring Provider Family Medicine; Visit Provider Surgery
PROC: 0DJD8ZZ Inspection of Lower Intestinal Tract, Via Natural or Artificial Opening Endoscopic (ICD-10-PCS; CPT 45378; principal; 2022-03-31 09:25)
DX: D12.2 Benign neoplasm of ascending colon (principal); G40.909 Epilepsy, unspecified, not intractable, without status epilepticus; K64.1 Second degree hemorrhoids; K57.30 Diverticulosis of large intestine without perforation or abscess without bleeding; K64.4 Residual hemorrhoidal skin tags; D47.2 Monoclonal gammopathy; Z79.1 Long term (current) use of non-steroidal anti-inflammatories (NSAID); M10.9 Gout, unspecified; Z86.010 Personal history of colon polyps
CPT/HCPCS: 45385; 88305; J7120; J2405

== ENCOUNTER → 2022-10-09 | Outpatient (CLI) | payer MEDICARE, SELFPAY ==
[2022-10-09 18:59] LABS: Hepatitis C Antibody Non-Reactive (Nonreactive)
== END | disposition home or self-care (01) ==
LOC: BFHLAB 15:47
PROVIDERS: PCP Family Medicine; Referring Provider Family Medicine; Visit Provider Family Medicine
DX: Z11.59 Encounter for screening for other viral diseases (principal)
CPT/HCPCS: 36415; 86803

== ENCOUNTER → 2023-09-17 | Outpatient (CLI) | payer MEDICARE, SELFPAY ==
[2023-09-17 15:29] LABS: Absolute Lymphocyte Count 1.51 X10^3/uL (0.83-4.51); Absolute Neutrophil Count 5.7 X10^3/uL (2.0-7.7); Basophil# 0.04 X10^3/uL; Basophil% 0.5 % (0-1); Eosinophil# 0.13 X10^3/uL; Eosinophils% 1.6 % (0-5); Hematocrit 42.2 % (37-47); Hemoglobin 13.2 g/dL (12.0-15.0); Lymphocyte # 1.51 X10^3/ul (0.83-4.51); Mean Corp Hgb Conc 31.3 g/dL (32-36); Mean Corpuscular Hgb 30.9 pg (27.0-32.0); Mean Corpuscular Volume 98.8 fL (81-99); Mean Platelet Vol. 11.5 fl (6.2-12.0); Monocyte# 0.54 X10^3/uL; Monocyte% 6.8 % (0-10); NRBC Flagged by Analyzer 0 % (0-5); Neutrophil # 5.68 X10^3/uL (2.7-7.7); Neutrophil % 71.6 % (47-70); Platelet Count 232 K/mm3 (150-450); RBC Distribution Width CV 13.7 % (11.6-14.6); RBC Distribution Width SD 49.1 fl (35.1-43.9); Red Blood Count 4.27 M/mm3 (4.2-5.4); White Blood Count 7.9 K/mm3 (4.4-11.0)
[2023-09-17 15:47] LABS: AST(SGOT) 22 U/L (15-37); Alanine Aminotransfer ALT/SGPT 24 U/L (13-56); Albumin, Serum 3.8 g/dL (3.2-5.0); Alkaline Phosphatase 87 U/L (45-117); Anion Gap 7 (5-15); BUN 20 mg/dL (7-18); BUN/Creat Ratio 21.6 RATIO (10-20); Calcium,Total 9.5 mg/dL (8.5-10.1); Chloride 103 mmol/L (98-107); Creatinine, Serum 0.93 mg/dL (0.55-1.02); EST Glomerular Filtration Rate 63 mL/min (>60); Est Glom Filt Rate - Afr Amer 76 mL/min (>60); Globulin 3.8 g/dL (2.2-4.2); Glucose 94 mg/dL (74-106); Potassium 4.4 mmol/L (3.5-5.1); Protein, Total 7.6 g/dL (6.4-8.2); Sodium Level 137 mmol/L (136-145)
[2023-09-17 15:58] LABS: BNP,B-Type NATRIURETIC PEPTIDE 9.1 pg/mL (0-100)
== END | disposition home or self-care (01) ==
LOC: BFHLAB 11:57
PROVIDERS: PCP Family Medicine; Referring Provider Family Medicine; Visit Provider Family Medicine
DX: I10 Essential (primary) hypertension (principal); R60.0 Localized edema
CPT/HCPCS: 36415; 80053; 83880; 85025

== ENCOUNTER 2023-09-21 09:39 | Emergency (ER) | payer MEDICARE, SELFPAY ==
[2023-09-21 09:39] VITALS: BP 188/81; PULSE 111; RESP 16; TEMP 36.7; O2SAT 98; BMI 37.7
--- NOTE | 2023-09-21 09:55 | EKG12_ITS ---
Test Reason : Blood Pressure : / mmHG Vent. Rate : 087 BPM Atrial Rate : 087 BPM P-R Int : 272 ms QRS Dur : 080 ms QT Int : 372 ms P-R-T Axes : 038 -38 038 degrees QTc Int : 447 ms Sinus rhythm with 1st degree A-V block Possible Left atrial enlargement Left axis deviation Minimal voltage criteria for LVH, may be normal variant ( R in aVL ) Abnormal ECG Confirmed by London Solis ([id number]), editor newspaper KEERTHI GARCIA ([id number]) on 09/22/2023 1:08:04 PM Referred By: Confirmed By:London Solis
--- NOTE | 2023-09-21 09:55 | VDLE_ITS ---
Reason For Study: swelling RIGHT LEFT GSV is normal. GSV is normal. CFV is compressible, spontaneous, phasic, CFV is compressible, spontaneous, phasic, competent and demonstrates normal competent, and demonstrates normal augmentation. augmentation. FV is compressible, spontaneous, phasic, FV is compressible, spontaneous, phasic, competent and demonstrates normal competent and demonstrates normal augmentation. augmentation. POP V is compressible, spontaneous, phasic, POP V is compressible, spontaneous, phasic, competent and demonstrates normal competent and demonstrates normal augmentation. augmentation. T/P Trunk is compressible. T/P Trunk is compressible. PTV is compressible. PTV is compressible. RT PerV is compressible. LT PerV is compressible. Heterogeneous area behind the knee measuring Acute deep vein thrombosis is noted in the 2.7 x 1.31 x 3.77 cm. Area is nonvascular. Soleus V. It is dilated and NONCOMPRESSIBLE. Procedure This is a venous duplex using B-mode, color flow and spectral Doppler. Exam performed portable in ED. The exam was diagnostic. A preliminary report was called and/or faxed to Dr. Espitia. VL/Venous Duplex US - Gurvinder Extrem Interpretation Summary Acute deep vein thrombosis is noted in the left soleus vein. Deep veins of the right lower extremity are patent and compressible segmentally . There is no evidence of right lower extremity deep vein thrombosis. The bilateral great sap henous veins appear patent and compressible segmentally. Ordering Physician: Niurka Espitia Performed By: Emigdio Delgado RVT
--- NOTE | 2023-09-21 10:06 | EDS_ITS ---
HPI History of Present Illness Chief Complaint: Lower Extremity Injury Detail of Chief Complaint: Lower extremity swelling, possible vertigo episode Narrative Narrative: Patient presents with multiple complaints. She reports bilateral lower extremity swelling over the past week or so, left greater than right. She has had some minimal pain around the left ankle that she initially thought was secondary to a gout flare. Patient was seen at PCPs office last week and given a short course of Lasix to help with swelling. Patient's daughter who is also a physician was concerned about the swelling with recent travel and asked her mother to come in for evaluation. 8 days ago patient also had an episode in the evening where she felt like her legs were weak, she was dizzy, sweaty, nauseated, and felt as if she needed to have a bowel movement. She states she was able to make it to the restroom and then went to bed. When she woke up in the morning she was still slightly dizzy but significantly improved. Over the next couple of days symptoms have improved, but states she still needs to turn slowly or she gets dizzy. She denies having chest pain or palpitations. [facility] Medical History Loss of hearing Wears glasses Cancer Arthritis Restless legs Back pain Shortness of breath on exertion Non-smoker History of edema History of Holter monitoring History of echocardiogram Cardiology follow-up encounter Epilepsy Bradycardia Depression Anxiety Essential hypertension HSV-1 infection History of breast cancer RLS (restless legs syndrome) Latisha Slurred speech Gout Home Medications ?Medication ?Instructions ?Recorded ?Last Taken ?Type allopurinol 300 mg tablet 1 tab PO DAILY Gout 11/19/21 09/21/23 History cholecalciferol (vitamin D3) 25 1,000 unit PO DAILY Vitamin D 12/17/21 09/21/23 History mcg (1,000 unit) tablet (Vitamin deficiency D3) folic acid 800 mcg tablet 1,000 mg PO DAILY Supplement 12/17/21 09/21/23 History gabapentin 600 mg tablet 600 mg PO QHS Check with primary 12/17/21 09/20/23 History doctor loratadine 10 mg tablet 10 mg PO DAILY Seasonal Allergies 01/29/22 09/21/23 History guclbxfq-[id number]-[id number] 5 mg-zeaxanth 1 cap PO DAILY Supplement 01/29/22 09/21/23 History 1 mg-bilberry 7.5 mg-herbal capsule ([facility] Formula) valacyclovir 1 gram tablet 1,000 mg PO DAILY Check with 01/29/22 09/21/23 History primary doctor cyanocobalamin (vitamin B-12) 500 500 mcg PO BREAKFAST #0 tabs 02/04/22 09/21/23 Rx mcg tablet lacosamide 100 mg tablet (Vimpat) 150 mg (1.5 x 100 mg) PO 0800,2000 02/04/22 09/21/23 Rx 30 days #90 tabs meloxicam 7.5 mg tablet 7.5 mg PO BREAKFAST Check with 02/04/22 09/21/23 Rx primary doctor 30 days #30 tabs pramipexole 0.5 mg tablet 0.5 mg PO 1400,2200 Check with 03/25/22 09/20/23 History primary doctor sennosides 8.6 mg tablet (senna) 8.6 mg PO DAILY 03/25/22 Unknown History furosemide 20 mg tablet 20 mg PO DAILY PRN swelling 09/21/23 09/21/23 History lacosamide 150 mg tablet 150 mg PO BID 09/21/23 09/21/23 History lisinopril 10 mg tablet 20 mg PO DAILY Blood pressure 09/21/23 09/21/23 History potassium citrate 10 mEq (1,080 10 meq PO DAILY 09/21/23 09/21/23 History mg) tablet,extended release rivaroxaban 15 mg (42)-20 mg (9) See Rx Instructions PO .COMPLEX 09/21/23 Unknown Rx tablets in a starter pack (Xarelto #51 tabs DVT-PE Treatment 30-Day Starter) Allergy/AdvReac Type Severity Reaction Status Date / Time hydrocodone AdvReac Nausea/Vom/ Verified 09/21/23 09:40 Diarrhea oxcarbazepine (From AdvReac SODIUM LOW Verified 09/21/23 09:40 Trileptal) propoxyphene HCl (From AdvReac Other Verified 09/21/23 09:40 Darvon) Family History Father Heart disease Mother Heart disease Osteoporosis Sister Cancer Sister Heart disease Sister Myasthenia Brother CVA (cerebral vascular accident) Surgical History History of tubal ligation History of esophagogastroduodenoscopy (EGD) (02/2020) History of lumpectomy of right breast (05/2014) History of shoulder surgery (~10/20/11) History of right knee joint replacement (02/05/09) History of left knee replacement (10/16/08) Social History household members: none Smoking Status: Never smoker alcohol intake: current details: occasional substance use type: does not use ROS ROS ED Constitutional Constitutional ED: Denies chills or fever(s) Eyes Eyes: Denies discharge from eye(s) ENT ENT ED: Denies discharge from eye(s), rhinorrhea or sore throat Cardiovascular Cardiovascular: Denies chest pain or palpitations Respiratory/Chest Respiratory/Chest: Denies cough or dyspnea Gastrointestinal Gastrointestinal: Reports nausea; Denies abdominal pain, diarrhea or vomiting Genitourinary Genitourinary ED: Denies dysuria Musculoskeletal Musculoskeletal: Reports extremity pain; Denies back pain Integumentary Denies Abrasions or rash Neurologic Neurologic: Reports weakness; Denies headache(s) Psychiatric Psychiatric: Denies anxiety or depression Allergic/Immunologic Allergic/Immunologic ED: Denies lip swelling or urticaria EXAM Physical Exam Const Vital Signs: 09/21/23 09:39 09/21/23 11:39 09/21/23 13:00 Temperature 98.1 F 97.9 F Temperature Source Temporal Temporal Pulse Rate 111 H 95 75 Respiratory Rate 16 25 H 12 Blood Pressure 188/81 H 152/70 H 153/77 H Blood Pressure Mean 116 97 102 Pulse Ox 98 99 100 Oxygen Delivery Method Room Air Room Air Room Air Positive well nourished and well developed General Appearance ED: well developed HEENT Reports moist mucous membranes Eyes EOMs intact bilaterally Chest Wall inspection of chest normal and palpation of chest normal Resp normal respiratory effort and clear to auscultation bilaterally Cardio regular rate and regular rhythm GI normal to inspection, nondistended, normoactive bowel sounds and non-tender Palpation: soft Extremity Extremity Narrative: 1-2+ bilateral lower extremity edema, symmetric. No skin changes at this time. Strong distal pulses. Full range of motion. Neuro oriented x3 and no sensory deficits noted Motor Exam: strength 5/5 throughout Psych mental status grossly normal Skin no rashes or lesions noted MDM MDM MDM Narrative Medical decision making narrative: Patient placed on monitoring manager. EKG obtained to evaluate for cardiac arrhythmia/ischemia. IV line initiated. Labwork obtained to evaluate for leukocytosis, anemia, and electrolyte derangement. Venous ultrasound of the lower extremities obtained to evaluate for potential DVT. History & Record Review Discussion w/independent historian: Patient and Family Lab Data Attestation: I reviewed the patient's lab results. Labs: Laboratory Results - last 24 hr 09/21/23 09/21/23 10:20 14:04 WBC 7.8 RBC 4.45 Hgb 14.0 Hct 43.0 MCV 96.6 MCH 31.5 MCHC 32.6 RDW Std Deviation 47.8 H RDW Coeff of Daphne 13.5 Plt Count 220 MPV 10.7 Immature Gran % (Auto) 0.400 Neut % (Auto) 74.9 H Lymph % (Auto) 15.5 L [place] % (Auto) 7.9 Eos % (Auto) 1.0 Baso % (Auto) 0.3 Absolute Neuts (auto) 5.8 Absolute Lymphs (auto) 1.20 Nucleated RBC % 0 ESR 31 H PT 14.4 INR 1.1 APTT 28.4 Sodium 136 Potassium 4.2 Chloride 101 Carbon Dioxide 27.0 Anion Gap 8 BUN 25 H Creatinine 1.08 H Estim Creat Clear Calc 49.00 Est GFR (MDRD) Af Amer 63 Est GFR (MDRD) Non-Af 52 L BUN/Creatinine Ratio 23.1 H Glucose 111 H Calcium 9.7 Troponin I High Sens 3 C-React Prot Ext Range 4.00 H Radiography Diagnostic Testing: Clinical Impression(s) from Imaging Studies Brain CT 09/21/23 13:53 IMPRESSION: No acute intracranial abnormality. Electronically Signed: Michael Jenkins MD at 14:43 EDT , Chest CTA 09/21/23 13:53 IMPRESSION: No acute cardiopulmonary abnormality. No evidence of acute pulmonary embolism. Electronically Signed: Michael Jenkins MD at 14:42 EDT , EKG Initial EKG: Attestation: I personally reviewed and interpreted this EKG as follows: Interpretation: Sinus Rhythm (Sinus rhythm at 87 bpm. No acute ischemia.) Treatment and Re-Evaluation :: CBC was normal white count 7.8 with a hemoglobin of 14.0. 75% neutrophils noted. Sed rate is 31 and CRP is 4. Chemistry studies reveal a BUN of 25 and a creatinine of 1.08. Glucose is 111. Troponin is normal at 3. EKG is sinus rhythm with no evidence of ischemia. Venous ultrasound of the lower extremities reveals a heterogeneous area behind the right knee measuring 2.7 x 1.31 x 3.77 cm. This is nonvascular and may be consistent with a Santana's cyst. Left lower extremity ultrasound reveals an acute DVT in the left soleus vein. Patient has been stable during her stay in the emergency room. Nursing staff notes that she was able to ambulate to the restroom and back without difficulty. I did speak with the patient's daughter on the phone who is a hospitalist in the [facility]. We discussed pros and cons of starting anticoagulation versus serial ultrasounds of her lower extremity. They do prefer anticoagulation and I do have a coupon for Xarelto. Prescription will be sent to the hospital pharmacy for her to start this. I did recommend she contact her PCP this week for close follow-up as they will need to file insurance paperwork for further prescriptions. Patient voices understanding and agreement. Addendum: Prior to the patient being discharged, I was asked to come back to the room. Patient's daughter would now prefer the patient have a CT scan of the head, CTA of the chest, and coag studies. She feels that this may change our treatment with anticoagulation and duration of treatment. Coags are unremarkable. CT of the head is normal. CTA of the chest is unremarkable with no evidence of a pulmonary embolism. Patient be discharged home as per previous plan. Discharge Plan Triage Chief Complaint: Lower Extremity Injury ED Provider: Niurka Espitia Dx/Rx/DC Orders Clinical Impression: DVT (deep venous thrombosis), Dizziness Instructions: ED Dizziness, Uncertain Cause, ED Deep Vein Thrombosis (DVT) Prescriptions: New Xarelto DVT-PE Treat 30d Start 15 mg (42)- 20 mg (9) tablets,dose pack See Rx Instructions .ROUTE .COMPLEX Qty: 51 0RF Rx Instructions: take one-15 mg tablet twice daily for 21 days, then one-20 mg tablet once daily; must take with meal/food No Action folic acid 800 mcg tablet 1,000 mg PO DAILY gabapentin 600 mg tablet 600 mg PO QHS cholecalciferol (vitamin D3) [Vitamin D3] 25 mcg (1,000 unit) tablet 1,000 unit PO DAILY allopurinol 300 mg tablet 1 tab PO DAILY valacyclovir 1 gram tablet 1,000 mg PO DAILY loratadine 10 mg Tablet 10 mg PO DAILY Macular Health Formula 5-1-7.5 mg Capsule 1 cap PO DAILY cyanocobalamin (vitamin B-12) 500 mcg Tablet 500 mcg PO BREAKFAST Qty: 0 0RF lacosamide [Vimpat] 100 mg Tablet 150 mg PO 0800,2000 30 Days Qty: 90 0RF meloxicam 7.5 mg tablet 7.5 mg PO BREAKFAST 30 Days Qty: 30 0RF pramipexole 0.5 mg tablet 0.5 mg PO 1400,2200 sennosides [senna] 8.6 mg Tablet 8.6 mg PO DAILY potassium citrate 10 mEq (1,080 mg) tablet extended release 10 meq PO DAILY furosemide 20 mg tablet 20 mg PO DAILY PRN (Reason: swelling) lacosamide 150 mg tablet 150 mg PO BID lisinopril 10 mg tablet 20 mg PO DAILY Primary Care Provider: Sudha Adler Referrals: Sudha Adler MD [Primary Care Provider] - 1 Week Activity Restrictions/Additional Instructions: As discussed, please follow-up with your PCP within the next week. They will need to submit insurance paperwork for your continued prescription of blood thinner. Please do not take your meloxicam while you are on the blood thinner. You can use Tylenol as needed for pain. Print Language: Kyrgyz Disposition Disposition: Home, Self Care
[2023-09-21 10:25] LABS: Absolute Neutrophil Count 5.8 X10^3/uL (2.0-7.7); Basophil# 0.02 X10^3/uL; Basophil% 0.3 % (0-1); Eosinophil# 0.08 X10^3/uL; Lymphocyte % 15.5 % (19-41); Mean Corp Hgb Conc 32.6 g/dL (32-36); Mean Corpuscular Hgb 31.5 pg (27.0-32.0); Mean Corpuscular Volume 96.6 fL (81-99); Mean Platelet Vol. 10.7 fl (6.2-12.0); Monocyte# 0.61 X10^3/uL; Monocyte% 7.9 % (0-10); NRBC Flagged by Analyzer 0 % (0-5); Neutrophil # 5.81 X10^3/uL (2.7-7.7); Neutrophil % 74.9 % (47-70); Platelet Count 220 K/mm3 (150-450); RBC Distribution Width CV 13.5 % (11.6-14.6); RBC Distribution Width SD 47.8 fl (35.1-43.9); Red Blood Count 4.45 M/mm3 (4.2-5.4); White Blood Count 7.8 K/mm3 (4.4-11.0)
[2023-09-21 11:00] LABS: Anion Gap 8 (5-15); BUN 25 mg/dL (7-18); BUN/Creat Ratio 23.1 RATIO (10-20); Calcium,Total 9.7 mg/dL (8.5-10.1); Chloride 101 mmol/L (98-107); Creatinine, Serum 1.08 mg/dL (0.55-1.02); EST Glomerular Filtration Rate 52 mL/min (>60); Est Glom Filt Rate - Afr Amer 63 mL/min (>60); Glucose 111 mg/dL (74-106); Potassium 4.2 mmol/L (3.5-5.1); Sodium Level 136 mmol/L (136-145); Troponin-I HS 3 pg/mL (3.0-54.0)
[2023-09-21 11:02] LABS: Erythrocyte Sedimentation Rate 31 mm/hr (0-30)
[2023-09-21 11:39] VITALS: BP 152/70; PULSE 95; RESP 25; TEMP 36.6; O2SAT 99
[2023-09-21 13:00] VITALS: BP 153/77; PULSE 75; RESP 12; O2SAT 100
--- NOTE | 2023-09-21 13:53 | CT_ITS ---
EXAM: CT HEAD WITHOUT INTRAVENOUS CONTRAST CLINICAL INDICATION: dysequilibrium TECHNIQUE: Multiple axial images were obtained of the head without intravenous contrast. This CT exam was performed using one or more of the following dose reduction techniques: automated exposure control, adjustment of the mA and/or kV according to patient size, and/or use of iterative reconstruction technique. COMPARISON: No relevant prior studies available. FINDINGS: BRAIN AND EXTRA-AXIAL SPACES: Normal. Normal brain attenuation. No intra- or extra-axial hemorrhage. No acute infarct. No intracranial mass or mass effect. There is preservation of the mcwilliams/white matter interface. Posterior fossa structures are unremarkable. Ventricles are appropriate for age. No hydrocephalus. Basal cisterns are patent. BONES/JOINTS: Normal calvarium. SINUSES: No acute sinusitis. MASTOID AIR CELLS: Normal. Clear. CT/Brain/Head without Contrast IMPRESSION: No acute intracranial abnormality. Electronically Signed: Michael Jenkins MD at 14:43 EDT ,
--- NOTE | 2023-09-21 13:53 | CT_ITS ---
EXAM: CT ANGIOGRAPHY CHEST WITHOUT AND WITH INTRAVENOUS CONTRAST CLINICAL INDICATION: R/O PE. Has small DVT TECHNIQUE: Helically acquired angiography images were obtained of the chest without and with intravenous contrast. This CT exam was performed using one or more of the following dose reduction techniques: automated exposure control, adjustment of the mA and/or kV according to patient size, and/or use of iterative reconstruction technique. MIP reconstructed images were created and reviewed. CONTRAST: IV 100mL [id number] COMPARISON: No relevant prior studies available. FINDINGS: PULMONARY ARTERIES: Normal. Normal in caliber. No evidence of pulmonary embolism. AORTA: Normal. Normal in caliber. No evidence of dissection. GREAT VESSELS OF AORTIC ARCH: Normal. Normal in caliber. No evidence of dissection. LUNGS AND PLEURAL SPACES: Normal. No mass. No consolidation or edema. No pleural effusion or thickening. No pneumothorax. HEART: Normal. Heart size is normal. No pericardial effusion. No significant coronary artery calcifications. MEDIASTINUM: Normal. No mediastinal or hilar adenopathy. Esophagus is unremarkable. No hiatal hernia. BONES/JOINTS: Normal. No suspicious lytic or blastic abnormality. LYMPH NODES: Small calcified left hilar lymph nodes related to old granulomatous disease. CT/CTA Chest W/WO Contrast IMPRESSION: No acute cardiopulmonary abnormality. No evidence of acute pulmonary embolism. Electronically Signed: Michael Jenkins MD at 14:42 EDT ,
[2023-09-21 14:25] LABS: International Normalized Ratio 1.1; Prothrombin Time (Protime)PT. 14.4 SECONDS (11.7-14.9)
[2023-09-21 14:26] LABS: Partial Thromboplast Time 28.4 Seconds (24.1-36.2)
[2023-09-21 14:59] VITALS: BP 154/81; PULSE 76; RESP 14; TEMP 36.8; O2SAT 100
[2023-09-21] MEDS: Rivaroxaban 15 MG Tablet PO (15:15)
== END 2023-09-21 15:21 | disposition home or self-care (01) ==
PROVIDERS: Emergency Provider Emergency Medicine; PCP Family Medicine; Visit Provider Emergency Medicine
DX: I82.462 Acute embolism and thrombosis of left calf muscular vein (principal); R42 Dizziness and giddiness; Z79.899 Other long term (current) drug therapy
CPT/HCPCS: 70450; 71275; 80048; 84484; 85025; 85610; 85652; 85730; 86140; 93005; 93970; 99284; Q9967; A4216

== ENCOUNTER 2023-09-26 12:30 | Emergency (ER) | payer MEDICARE, SELFPAY ==
[2023-09-26 12:30] VITALS: BP 165/89; PULSE 106; RESP 20; TEMP 36.4; O2SAT 99; BMI 37.4
--- NOTE | 2023-09-26 13:18 | CT_ITS ---
EXAM: CT HEAD WITHOUT INTRAVENOUS CONTRAST CLINICAL INDICATION: head injury TECHNIQUE: Multiple axial images were obtained of the head without intravenous contrast. This CT exam was performed using one or more of the following dose reduction techniques: automated exposure control, adjustment of the mA and/or kV according to patient size, and/or use of iterative reconstruction technique. COMPARISON: CT Head dated 09/21/2023 FINDINGS: BRAIN AND EXTRA-AXIAL SPACES: Normal. Normal brain attenuation. No intra- or extra-axial hemorrhage. No acute infarct. No intracranial mass or mass effect. There is preservation of the mcwilliams/white matter interface. Posterior fossa structures are unremarkable. Ventricles are appropriate for age. No hydrocephalus. Basal cisterns are patent. BONES/JOINTS: Normal calvarium. SINUSES: No acute sinusitis. MASTOID AIR CELLS: Normal. Clear. CT/Brain/Head without Contrast IMPRESSION: No acute intracranial abnormality. No interval change. Electronically Signed: Michael Jenkins MD at 14:02 EDT ,
--- NOTE | 2023-09-26 13:25 | EX.ED.DYSGE1 ---
HPI History of Present Illness Chief Complaint: Head Injury Narrative Narrative: 78-year-old female presenting for evaluation. Patient states that she is currently on Xarelto for history of DVT. Patient recently started on this. She states that 2 days ago she was sleeping in her chair and started to nod off and fell forward hitting her head. She did not lose consciousness and actually woke up with this. She has a slight feeling that her vision is off but otherwise has been able to eat, drink. She is ambulatory. She was working in the garden today. She denies severe headache. No nausea or vomiting. She states that she has 2 daughters who are nurses who told her to come to the emergency room for evaluation given that she is on a blood thinner. Patient denies chest pain or shortness of breath. Recently had CTA of the chest which was negative. [facility] Medical History Loss of hearing Wears glasses Cancer Arthritis Restless legs Back pain Shortness of breath on exertion Non-smoker History of edema History of Holter monitoring History of echocardiogram Cardiology follow-up encounter Epilepsy Bradycardia Depression Anxiety Essential hypertension HSV-1 infection History of breast cancer RLS (restless legs syndrome) Latisha Slurred speech Gout Home Medications ?Medication ?Instructions ?Recorded ?Last Taken ?Type allopurinol 300 mg tablet 1 tab PO DAILY Gout 11/19/21 09/21/23 History cholecalciferol (vitamin D3) 25 1,000 unit PO DAILY Vitamin D 12/17/21 09/21/23 History mcg (1,000 unit) tablet (Vitamin deficiency D3) folic acid 800 mcg tablet 1,000 mg PO DAILY Supplement 12/17/21 09/21/23 History gabapentin 600 mg tablet 600 mg PO QHS Check with primary 12/17/21 09/20/23 History doctor loratadine 10 mg tablet 10 mg PO DAILY Seasonal Allergies 01/29/22 09/21/23 History [id number]-grg-iccrtm 5 mg-zeaxanth 1 cap PO DAILY Supplement 01/29/22 09/21/23 History 1 mg-bilberry 7.5 mg-herbal capsule (Macular Health Formula) valacyclovir 1 gram tablet 1,000 mg PO DAILY Check with 01/29/22 09/21/23 History primary doctor cyanocobalamin (vitamin B-12) 500 500 mcg PO BREAKFAST #0 tabs 02/04/22 09/21/23 Rx mcg tablet lacosamide 100 mg tablet (Vimpat) 150 mg (1.5 x 100 mg) PO 0800,2000 02/04/22 09/21/23 Rx 30 days #90 tabs meloxicam 7.5 mg tablet 7.5 mg PO BREAKFAST Check with 02/04/22 09/21/23 Rx primary doctor 30 days #30 tabs pramipexole 0.5 mg tablet 0.5 mg PO 1400,2200 Check with 03/25/22 09/20/23 History primary doctor sennosides 8.6 mg tablet (senna) 8.6 mg PO DAILY 03/25/22 Unknown History furosemide 20 mg tablet 20 mg PO DAILY PRN swelling 09/21/23 09/21/23 History lacosamide 150 mg tablet 150 mg PO BID 09/21/23 09/21/23 History lisinopril 10 mg tablet 20 mg PO DAILY Blood pressure 09/21/23 09/21/23 History potassium citrate 10 mEq (1,080 10 meq PO DAILY 09/21/23 09/21/23 History mg) tablet,extended release rivaroxaban 15 mg (42)-20 mg (9) See Rx Instructions PO .COMPLEX 09/21/23 Unknown Rx tablets in a starter pack (Xarelto #51 tabs DVT-PE Treatment 30-Day Starter) Allergy/AdvReac Type Severity Reaction Status Date / Time hydrocodone AdvReac Nausea/Vom/ Verified 09/21/23 09:40 Diarrhea oxcarbazepine (From AdvReac SODIUM LOW Verified 09/21/23 09:40 Trileptal) propoxyphene HCl (From AdvReac Other Verified 09/21/23 09:40 Darvon) Family History Father Heart disease Mother Heart disease Osteoporosis Sister Cancer Sister Heart disease Sister Myasthenia Brother CVA (cerebral vascular accident) Surgical History History of tubal ligation History of esophagogastroduodenoscopy (EGD) (02/2020) History of lumpectomy of right breast (05/2014) History of shoulder surgery (~10/20/11) History of right knee joint replacement (02/05/09) History of left knee replacement (10/16/08) Social History household members: none Smoking Status: Never smoker alcohol intake: current details: occasional substance use type: does not use ROS ROS ED Constitutional Constitutional ED: Denies chills, fever(s) or sweats Eyes Eyes: Reports change in vision left; Denies blurry vision ENT ENT ED: Denies ear pain or sore throat Cardiovascular Cardiovascular: Denies chest pain, palpitations or racing heartbeat Respiratory/Chest Respiratory/Chest: Denies cough, dyspnea or sputum Gastrointestinal Gastrointestinal: Denies abdominal pain, constipation, diarrhea, nausea or vomiting Genitourinary Genitourinary ED: Denies dysuria, hematuria or urinary frequency Musculoskeletal Musculoskeletal: Denies arthralgias, myalgias or neck pain Integumentary Denies abscess, Abrasions or rash Neurologic Neurologic: Denies headache(s), paresthesias or weakness Psychiatric Psychiatric: Denies anxiety, depression, suicidal ideation or suicidal thoughts Endocrine Endocrinology: Denies polydipsia or polyuria EXAM Physical Exam Const Vital Signs: 09/26/23 12:30 09/26/23 14:56 Temperature 97.6 F L 98.1 F Temperature Source Temporal Pulse Rate 106 H 84 Respiratory Rate 20 H 16 Blood Pressure 165/89 H 133/62 H Blood Pressure Mean 114 85 Pulse Ox 99 100 Oxygen Delivery Method Room Air Positive well nourished General Appearance ED: Negative for pallor HEENT Reports TM's clear and moist mucous membranes Tympanic Membrane ED: Yes TM's clear Eyes PERRL and EOMs intact bilaterally General Eye ED: Negative for pale conjunctiva Chest Wall inspection of chest normal Resp normal respiratory effort and clear to auscultation bilaterally Cardio regular rate and regular rhythm Extremity normal to inspection Neuro oriented x3 and CN's II-XII intact bilaterally Sensorium / Orientation: alert Motor Exam: strength 5/5 throughout Psych mental status grossly normal Skin no rashes or lesions noted General Skin Exam: Negative for pallor MDM MDM MDM Narrative Medical decision making narrative: Patient presenting for evaluation of head injury on Xarelto. On examination she has any focal neurologic deficit or symptoms. She states her left eye feels a little fuzzy although her vision is not obscured. No evidence of trauma on the scalp. TMs normal without hemotympanum. No facial bone tenderness. No nasal bone trauma. No jaw malocclusion. Patient alert and awake in no acute distress. No focal neurologic deficits. Will obtain CT brain given her injury. CT brain was negative for acute findings. Patient counseled on this. Discharged in stable condition. Impression: 1. Closed head injury 2. Concussion Radiography Diagnostic Testing: Clinical Impression(s) from Imaging Studies Brain CT 09/26/23 13:18 IMPRESSION: No acute intracranial abnormality. No interval change. Electronically Signed: Michael Jenkins MD at 14:02 EDT , Discharge Plan Triage Chief Complaint: Head Injury ED Provider: Mason Cobb Dx/Rx/DC Orders Instructions: ED Head Injury (Adult) Prescriptions: No Action folic acid 800 mcg tablet 1,000 mg PO DAILY gabapentin 600 mg tablet 600 mg PO QHS cholecalciferol (vitamin D3) [Vitamin D3] 25 mcg (1,000 unit) tablet 1,000 unit PO DAILY allopurinol 300 mg tablet 1 tab PO DAILY valacyclovir 1 gram tablet 1,000 mg PO DAILY loratadine 10 mg Tablet 10 mg PO DAILY Macular Health Formula 5-1-7.5 mg Capsule 1 cap PO DAILY cyanocobalamin (vitamin B-12) 500 mcg Tablet 500 mcg PO BREAKFAST Qty: 0 0RF lacosamide [Vimpat] 100 mg Tablet 150 mg PO 0800,1999 30 Days Qty: 90 0RF meloxicam 7.5 mg tablet 7.5 mg PO BREAKFAST 30 Days Qty: 30 0RF pramipexole 0.5 mg tablet 0.5 mg PO 1400,2200 sennosides [senna] 8.6 mg Tablet 8.6 mg PO DAILY potassium citrate 10 mEq (1,080 mg) tablet extended release 10 meq PO DAILY furosemide 20 mg tablet 20 mg PO DAILY PRN (Reason: swelling) lacosamide 150 mg tablet 150 mg PO BID lisinopril 10 mg tablet 20 mg PO DAILY Xarelto DVT-PE Treat 30d Start 15 mg (42)- 20 mg (9) tablets,dose pack See Rx Instructions .ROUTE .COMPLEX Qty: 51 0RF Rx Instructions: take one-15 mg tablet twice daily for 21 days, then one-20 mg tablet once daily; must take with meal/food Primary Care Provider: Sudha Adler Referrals: Sudha Adler MD [Primary Care Provider] - Print Language: Anguillan Disposition Disposition: Home, Self Care Discharge Date/Time: 09/26/23 14:57
[2023-09-26 14:56] VITALS: BP 133/62; PULSE 84; RESP 16; TEMP 36.7; O2SAT 100
== END 2023-09-26 14:57 | disposition home or self-care (01) ==
PROVIDERS: Emergency Provider Student in an Organized Health Care Education/Training Program; PCP Family Medicine; Visit Provider Student in an Organized Health Care Education/Training Program
DX: S06.0X0A Concussion without loss of consciousness, initial encounter (principal); Z79.899 Other long term (current) drug therapy; Z79.01 Long term (current) use of anticoagulants; Z86.718 Personal history of other venous thrombosis and embolism; W19.XXXA Unspecified fall, initial encounter
CPT/HCPCS: 70450; 99282

== ENCOUNTER → 2023-12-24 | Outpatient (CLI) | payer MEDICARE, SELFPAY ==
--- NOTE | 2023-12-24 12:58 | VDLE_ITS ---
Reason For Study: F/U DVT RIGHT LEFT CFV is compressible, spontaneous, phasic, GSV is normal. competent and demonstrates normal CFV is compressible, spontaneous, phasic, augmentation. competent, and demonstrates normal Procedure augmentation. This is a venous duplex using B-mode, color FV is compressible, spontaneous, phasic, flow and spectral Doppler. competent and demonstrates normal Exam performed in department. augmentation. A preliminary report was called and/or faxed POP V is compressible, spontaneous, phasic, to Dr. Adler. competent and demonstrates normal augmentation. T/P Trunk is compressible. PTV is compressible. LT PerV is compressible. SoleusV is partially NONCOMPRESSIBLE. Compared to 09/21/2023. VL/Venous Duplex US, Unilateral Interpretation Summary Acute deep vein thrombosis and chronic changes are noted in the left soleus vei n. The remainder of the left lower extremity deep venous system is patent and compressible. Valvula r competence appears intact within the proximal deep venous system on the left . The left great saph enous vein appears patent and compressible segmentally. The right common femoral vein is patent an d compressible . There has been improvement since a prior study on 09/21/23. Ordering Physician: Sudha Adler Referring Physician: Sudha Adler Performed By: Anjali Garza RVT
== END | disposition home or self-care (01) ==
LOC: CVS 12:56
PROVIDERS: PCP Family Medicine; Referring Provider Family Medicine; Visit Provider Family Medicine
DX: I82.462 Acute embolism and thrombosis of left calf muscular vein (principal)
CPT/HCPCS: 93971

== ENCOUNTER → 2024-01-04 | Outpatient (CLI) | payer MEDICARE, SELFPAY ==
[2024-01-04 15:42] LABS: Anion Gap 6 (5-15); BUN 20 mg/dL (7-18); BUN/Creat Ratio 19.8 RATIO (10-20); Calcium,Total 9.7 mg/dL (8.5-10.1); Chloride 102 mmol/L (98-107); Creatinine, Serum 1.01 mg/dL (0.55-1.02); EST Glomerular Filtration Rate 57 mL/min (>60); Est Glom Filt Rate - Afr Amer 68 mL/min (>60); Glucose 101 mg/dL (74-106); Magnesium 2.1 mg/dL (1.6-2.6); Potassium 4.6 mmol/L (3.5-5.1); Sodium Level 137 mmol/L (136-145)
[2024-01-04 16:26] LABS: BNP,B-Type NATRIURETIC PEPTIDE 22.3 pg/mL (0-100)
== END | disposition home or self-care (01) ==
LOC: BFHLAB 13:08
PROVIDERS: PCP Family Medicine; Referring Provider Family Medicine; Visit Provider Family Medicine
DX: R60.9 Edema, unspecified (principal); R06.2 Wheezing
CPT/HCPCS: 36415; 80048; 83735; 83880

== ENCOUNTER → 2024-01-04 | Outpatient (CLI) | payer MEDICARE, SELFPAY ==
--- NOTE | 2024-01-04 12:51 | RAD_ITS ---
STUDY: X-RAY CHEST REASON FOR EXAM: Female, 78 years old. Weight gain and edema. TECHNIQUE: Frontal and lateral views of the chest. COMPARISON: November 19, 2021 FINDINGS: Low volume inspiration. There is no demonstrated pleural abnormality. Cardiomegaly. Normal mediastinum and esha. Normal visualized pulmonary arteries. Aortic tortuosity with calcification. Thoracic dextroscoliosis with diffuse moderate to marked spondylosis. Plate and screw fixation left proximal humerus, unchanged. No abnormality of the visualized soft tissue structures of the upper abdomen. RAD/Chest PA and Lateral IMPRESSION: Stable chest with no acute or active cardiopulmonary disease. Electronically Signed: Robinson Ayala MD at 15:15 EDT ,
== END | disposition home or self-care (01) ==
LOC: MTRAD 12:50
PROVIDERS: PCP Family Medicine; Referring Provider Family Medicine; Visit Provider Family Medicine
DX: R60.9 Edema, unspecified (principal); R06.2 Wheezing
CPT/HCPCS: 36415; 71046; 80048; 83735; 83880

== ENCOUNTER → 2024-01-25 | Outpatient (CLI) | payer MEDICARE, SELFPAY ==
--- NOTE | 2024-01-25 12:59 | ECHOCS_ITS ---
Reason For Study: Dyspnea/SOB Procedure This was a 2D Doppler, Color Flow transthoracic echocardiogram. The study was technically difficult. Contrast injection was performed. Exam performed in department. Left Ventricle Normal LV size. The estimated ejection fraction is 65 %. No evidence for diastolic dysfunction. No regional wall motion abnormalities noted. Right Ventricle Normal RV size. Normal systolic function. Atria The left and right atria are normal. No doppler evidence for ASD. Mitral Valve There is no mitral valve stenosis. Trivial mitral valve insufficiency. Tricuspid Valve There is no tricuspid stenosis. Mild tricuspid valve insufficiency. Pulmonary artery systolic pressure is 35 mmHg. Aortic Valve Trisinus/trileaflet aortic valve. There is no aortic stenosis. No aortic valve insufficiency. Pulmonic Valve There is no pulmonic valvular stenosis. No pulmonic valve insufficiency. Great Vessels Normal aortic root. Pericardium/Pleural No pericardial effusion. Medication 22 gauge I.V. with prn adaptor inserted into left arm. Diluted definity 1.5ml given slow IV push to enhance endocardial definition. MMode/2D Measurements & Calculations LVIDd: 3.9 cm IVSd: 0.89 cm Ao root diam: 3.0 cm LVIDs: 2.9 cm LVPWd: 0.90 cm RVDd: 3.6 cm FS: 24.9 % LAV(MOD-bp): 37.4 ml LVAd ap4: 21.4 cm2 SV(MOD-sp4): 25.9 ml LAV(MOD-bp) Indexed: 18.9 ml/m2 LVLd ap4: 7.5 cm LAV(MOD-sp2): 35.1 ml EDV(MOD-sp4): 51.8 ml LAV(MOD-sp4): 37.5 ml EDV(sp4-el): 52.2 ml LVAs ap4: 13.7 cm2 LVLs ap4: 6.2 cm ESV(MOD-sp4): 25.9 ml ESV(sp4-el): 25.7 ml EF(MOD-sp4): 50.0 % EF(sp4-el): 50.8 % SV(sp4-el): 26.5 ml Ao sinus diam: 3.[address] Junction: 2.5 cm LA A4 area: 15.9 cm2 LA dimension(2D): 3.3 cm TAPSE: 2.0 cm Time Measurements MV dec time: 0.24 sec Doppler Measurements & Calculations MV E max víctor: 88.8 cm/sec Lat Peak E' Víctor: 8.2 cm/sec Med Peak E' Víctor: 8.5 cm/sec MV A max víctor: 130.0 cm/sec E/E' lat: 10.9 E/E' med: 10.5 MV E/A: 0.68 MV V2 max: 147.9 cm/sec MV P1/2t max víctor: 95.9 cm/sec Ao V2 max: 109.9 cm/sec MV max P.8 mmHg MV P1/2t: 74.5 msec Ao max P.8 mmHg MV V2 mean: 70.9 cm/sec Ao V2 mean: 75.9 cm/sec MV mean P.5 mmHg MV dec slope: 376.9 cm/sec2 Ao mean P.7 mmHg MV V2 VTI: 37.1 cm MVA(P1/2t): 3.0 cm2 Ao V2 VTI: 25.8 cm AV (velocity ratio): 0.83 LV V1 max: 96.6 cm/sec PA V2 max: 90.9 cm/sec TR max víctor: 275.2 cm/sec LV V1 max P.7 mmHg PA max PG (full): 1.3 mmHg TR max P.3 mmHg LV V1 mean P.0 mmHg PA V2 mean: 66.2 cm/sec LV V1 mean: 66.2 cm/sec PA mean PG (full): 0.73 mmHg LV V1 VTI: 21.5 cm ECHO/Echo Complete W/ Contrast Interpretation Summary The estimated ejection fraction is 65 %. No evidence for diastolic dysfunction. Trivial mitral valve insufficiency. Ordering Physician: Sudha Adler Referring Physician: Sudha Adler Performed By: Shine Delgado RCS
== END | disposition home or self-care (01) ==
LOC: PSN 12:57
PROVIDERS: PCP Family Medicine; Referring Provider Family Medicine; Visit Provider Family Medicine
DX: R06.00 Dyspnea, unspecified (principal)
CPT/HCPCS: 93306; 94060; 94726; 94729; Q9957; A4216; C8929

== ENCOUNTER → 2024-07-31 | Outpatient (CLI) | payer MEDICARE, SELFPAY ==
--- NOTE | 2024-07-31 16:13 | MRI_ITS ---
PROCEDURE: BRAIN W/WO CONTRAST 07/31/2024 REASON FOR EXAM: HEARING LOSS TECHNIQUE: Brain MRI without and with intravenous contrast with additional dedicated imaging of the IACs. CONTRAST: 19 cc IV Clariscan was administered. COMPARISON: CT brain 09/26/2019 FINDINGS: TECHNIQUE: Multiplanar, multi-sequence MRI of brain was performed without and with IV contrast. FINDINGS: BRAIN/PARENCHYMA: No evidence of acute infarction or acute intracranial hemorrhage. There are subcortical and periventricular white matter FLAIR hyperintensities, likely related to chronic microvascular ischemic disease. No abnormal post-contrast enhancement. EXTRA-AXIAL SPACES: No abnormal extra-axial fluid collections. Patent basal cisterns and foramen magnum. MIDLINE SHIFT: None. VENTRICLES: No hydrocephalus. SCALP SOFT TISSUES & CALVARIUM: No significant abnormality. VISUALIZED SINUSES & MASTOIDS: No air-fluid levels in the paranasal sinuses. The mastoid air cells are clear. ARTERIAL FLOW VOIDS: Preserved major arterial flow voids indicating gross patency. IACs: ICAs are unremarkable without suspicious mass or abnormal enhancement. Cranial Nerves VII and VIII: Normal. No evidence of mass. Cochlea, Vestibule and Semicircular Canals: Within normal limits. No evidence of mass, abnormal signal or enhancement. Middle Ear Cavities: Unremarkable. MRI/Brain W/WO Contrast IMPRESSION: 1. No acute intracranial abnormality. 2. Unremarkable IAC's, without suspicious mass, abnormal signal intensity or e nhancement 3. Minimal chronic microvascular ischemic changes. Reading Location: [facility]
== END | disposition home or self-care (01) ==
LOC: MRI 16:10
PROVIDERS: PCP Family Medicine; Referring Provider Otolaryngology; Visit Provider Otolaryngology
DX: H90.41 Sensorineural hearing loss, unilateral, right ear, with unrestricted hearing on the contralateral side (principal)
CPT/HCPCS: 70553; A9575

== ENCOUNTER → 2024-09-07 | Outpatient (CLI) | payer MEDICARE, SELFPAY ==
--- NOTE | 2024-09-07 12:48 | VDLE_ITS ---
Reason For Study Reason For Study: Bilateral edema RIGHT LEFT GSV is normal. GSV is normal. CFV is compressible, spontaneous, phasic, competent CFV is compressible, spontaneous, phasic, competent, and demonstrates normal augmentation. and demonstrates normal augmentation. FV is compressible, spontaneous, phasic, competent FV is compressible, spontaneous, phasic, competent and demonstrates normal augmentation. and demonstrates normal augmentation. POP V is compressible, spontaneous, phasic, competent POP V is compressible, spontaneous, phasic, competent and demonstrates normal augmentation. and demonstrates normal augmentation. T/P Trunk is compressible. T/P Trunk is compressible. PTV is compressible. PTV is compressible. RT PerV is compressible. LT PerV is compressible. Nonvascularized structure noted in the right Soleus V is partially compressible. No significant popliteal fossa that measures 1.48 x 4.36 cm. changed as compared to 12/24/2023. Procedure This is a venous duplex using B-mode, color flow and spectral Doppler. Exam performed in department. A preliminary report was called and/or faxed to Dr. Alder. VL/Venous Duplex US - Gurvinder Extrem Interpretation Summary Chronic deep vein thrombosis is noted in the left soleus vein. Deep veins of the right lower extremity are patent and compressible segmentally . There is no evidence of right lower extremity deep vein thrombosis. The bilateral great saphenous veins appear mason nt and compressible segmentally. Nonvascularized structure noted in the right popliteal fossa that measures 1.48 x 4.36 cm. Ordering Physician: Sudha Adler Referring Physician: Sudha Adler Performed By: Anjali Garza RVT
== END | disposition home or self-care (01) ==
PROVIDERS: PCP Family Medicine; Referring Provider Family Medicine; Visit Provider Family Medicine
DX: R60.0 Localized edema (principal)
CPT/HCPCS: 93970

== ENCOUNTER → 2024-09-08 | Outpatient (CLI) | payer MEDICARE, SELFPAY ==
[2024-09-08 18:01] LABS: Absolute Lymphocyte Count 1.67 X10^3/uL (0.83-4.51); Absolute Neutrophil Count 8.2 X10^3/uL (2.0-7.7); Basophil# 0.03 X10^3/uL; Basophil% 0.3 % (0-1); Eosinophil# 0.14 X10^3/uL; Eosinophils% 1.3 % (0-5); Hemoglobin 12.1 g/dL (12.0-15.0); Lymphocyte # 1.67 X10^3/ul (0.83-4.51); Lymphocyte % 15.4 % (19-41); Mean Corp Hgb Conc 33.6 g/dL (32-36); Mean Corpuscular Hgb 31.8 pg (27.0-32.0); Mean Corpuscular Volume 94.7 fL (81-99); Mean Platelet Vol. 11.2 fl (6.2-12.0); Monocyte# 0.73 X10^3/uL; Monocyte% 6.7 % (0-10); NRBC Flagged by Analyzer 0 % (0-5); Neutrophil # 8.23 X10^3/uL (2.7-7.7); Neutrophil % 75.8 % (47-70); Platelet Count 245 K/mm3 (150-450); RBC Distribution Width CV 13.8 % (11.6-14.6); RBC Distribution Width SD 47.9 fl (35.1-43.9); White Blood Count 10.9 K/mm3 (4.4-11.0)
[2024-09-08 18:13] LABS: Ferritin 90 ng/mL (22-378)
== END | disposition home or self-care (01) ==
LOC: MTLAB 15:52
PROVIDERS: PCP Family Medicine; Referring Provider Family Medicine; Visit Provider Family Medicine
DX: D64.9 Anemia, unspecified (principal)
CPT/HCPCS: 36415; 82728; 85025

== ENCOUNTER → 2024-11-09 | Outpatient (CLI) | payer MEDICARE, SELFPAY ==
--- NOTE | 2024-11-09 15:19 | RAD_ITS ---
PROCEDURE: HIP, UNI W/ PELVIS 2-3 VIEWS 11/09/2024 REASON FOR EXAM: PAIN, FALL TECHNIQUE: HIP, UNI W/ PELVIS 2-3 VIEWS COMPARISON: None FINDINGS: Alignment is within normal limits. Mild hip joint space narrowing and subtle acetabulum sclerosis. No focal lesion noted. Soft tissues appear normal. RAD/HIP, UNI W/ Pelvis 2-3 Views IMPRESSION: No acute osseus abnormality seen. Mild hip arthritic changes. Reading [facility]
== END | disposition home or self-care (01) ==
PROVIDERS: PCP Family Medicine; Referring Provider Family Medicine; Visit Provider Family Medicine
DX: M25.552 Pain in left hip (principal)
CPT/HCPCS: 73502

== ENCOUNTER → 2025-04-10 | Outpatient (CLI) | payer MEDICARE, SELFPAY ==
[2025-04-10 11:40] LABS: Hematocrit 39.7 % (37-47); Hemoglobin 12.7 g/dL (12.0-15.0); Immature Granulocytes Count 0.030 X10^3/uL (0.0-0.0); Mean Corp Hgb Conc 32.0 g/dL (32-36); Mean Corpuscular Volume 96.8 fL (81-99); Mean Platelet Vol. 10.7 fl (6.2-12.0); NRBC Flagged by Analyzer 0 % (0-5); Platelet Count 197 K/mm3 (150-450); RBC Distribution Width CV 14.2 % (11.6-14.6); RBC Distribution Width SD 50.4 fl (35.1-43.9); Red Blood Count 4.10 M/mm3 (4.2-5.4); White Blood Count 5.7 K/mm3 (4.4-11.0)
[2025-04-10 11:59] LABS: AST(SGOT) 22 U/L (<=31); Alanine Aminotransfer ALT/SGPT 12 U/L (<=34); Albumin, Serum 3.9 g/dL (3.4-4.8); Alkaline Phosphatase 83 U/L (35-104); Anion Gap 11 (5-15); BUN 20 mg/dL (4-19); BUN/Creat Ratio 22.7 RATIO (10-20); Calcium,Total 9.4 mg/dL (7.6-11.0); Carbon Dioxide 28.4 mmol/L (21.0-32.0); Chloride 100 mmol/L (98-108); Cholesterol 174 mg/dL (<=200); Globulin 3.3 g/dL (2.2-4.2); Glucose 109 mg/dL (70-99); Low Density Lipoprotein Calc. 99 mg/dL; Potassium 4.4 mmol/L (3.3-5.1); Triglycerides 127 mg/dL; Very Low Density Lipoprotein 25 mg/dL (5-40); cholesterol:hdl ratio screen 3.34
== END | disposition home or self-care (01) ==
LOC: BFHLAB 11:01
PROVIDERS: PCP Family Medicine; Visit Provider Family Medicine
DX: I10 Essential (primary) hypertension (principal); D64.9 Anemia, unspecified
CPT/HCPCS: 36415; 80053; 80061; 85025